=== PATIENT | female | born 1985 | race African-American/Black ===

== ENCOUNTER 2022-11-24 13:59 | Outpatient (CLI) | payer BC, SELFPAY ==
--- NOTE | ~2022-11-24 | US_ITS ---
US OB <=14 wk fetus w TV DATE: 11/24/2022 15:51 INDICATION: First trimester vaginal spotting TECHNIQUE: Real-time imaging and Doppler analysis COMPARISON: None FINDINGS: The uterus measures 8.2 cm height, 5.1 cm AP dimension. Intrauterine normally shaped gestational sac is identified. No subchorionic hematoma is noted. pole and yolk sac are observed. heart rate of 161 bpm. Archer-rump length averages 1.07 cm consistent with estimated gestational age of 7 weeks 1 day +/- 5 d ays with DARINEL of 07/12/2023, compared to 07/11/2023 by LMP. Right ovary 3.3 x 2.3 x 2.0 cm, with normal vascular flow. Left ovary 3.6 x 1.6 x 1.6 cm, with normal vascular flow. No pelvic mass lesion or abnormal free pelvic fluid collection is detected. IMPRESSION: Estimated gestational age of 7 weeks 1 day +/- 5 days with DARINEL of 07/12/2023; no abnormalit y identified Reviewed, dictated and finalized at [facility]. Reviewed, dictated and finalized at location B. E CARRIAGE OPERATOR IMPRESSION: Estimated gestational age of 7 weeks 1 day +/- 5 days with DARINEL of ; no abnormality identified
== END 2022-11-24 14:00 | disposition home or self-care (01) ==
PROVIDERS: Visit Provider Obstetrics & Gynecology Gynecology
DX: O26.851 Spotting complicating pregnancy, first trimester (principal); Z3A.01 Less than 8 weeks gestation of pregnancy
CPT/HCPCS: 36415; 76801; 76817; 84702; 85461; 86850; 86900; 86901

== ENCOUNTER 2022-11-26 08:08 | Outpatient (RCR) | payer BC, SELFPAY | END 2023-02-24 23:59 | disposition home or self-care (01) | LOC: ANHLAB 08:08 | PROVIDERS: Visit Provider Obstetrics & Gynecology Gynecology | DX: O26.859 Spotting complicating pregnancy, unspecified trimester (principal); Z3A.00 Weeks of gestation of pregnancy not specified | CPT/HCPCS: 36415; 84702; 85461; 86850; 86900; 86901 ==

== ENCOUNTER 2022-12-13 08:16 | Emergency (ER) | payer BC, SELFPAY ==
--- NOTE | ~2022-12-13 | US_ITS ---
EXAMINATION: US OB <= 14 weeks fetus DATE: 12/13/2022 09:09 INDICATION: Threatened and vaginal bleeding during first trimester TECHNIQUE: Real-time pelvic transabdominal and transvaginal ultrasound was performed. COMPARISON: 11/24/2022 FINDINGS: The uterus measures 11.8 x 6.3 x 6.4 cm. The previously identified intrauterine is no longer present. The right ovary is not visualized however no right adnexal abnormality is seen. The left ovary measures 2.5 x 2.6 x 1.9 cm. There is normal vascular flow in the left ovary. There i s no free fluid in the pelvis. IMPRESSION: 1. Interval loss of previously described . Reviewed, dictated and finalized at location A. ING MACHINE ADJUSTER
[2022-12-13 08:29] VITALS: BP 103/69; PULSE 87; RESP 17; TEMP 36.7; O2SAT 100
--- NOTE | 2022-12-13 08:42 | ED.PREGNANCY ---
HPI - General Chief complaint: Vaginal Bleeding Stated complaint: 10 weeks /vb Time Seen by Provider: 12/13/22 08:21 History of Present Illness HPI Narrative: 37-year-old female who is around 10 weeks presents with large amount of vaginal bleeding as started about an hour prior to presentation here, the bleeding was preceded with cramping pain. Related Data Allergies Allergy/AdvReac Type Severity Reaction Status Date / Time Sulfa (Sulfonamide Allergy Unknown Verified 12/13/22 08:45 Antibiotics) Review of Systems Review of Systems: CONST: No fever. HEENT: No sore throat C/V: No chest pain RESP: No cough GI: Reports abdominal cramping : Vaginal bleeding M/S: No joint pain. SKIN: No rash. NEURO: [No headache or focal numbness or weakness] PSYCH: [No depression] [facility] Past Medical History Medical History (Updated 12/13/22 @ 14:03 by Regla Lopez MD) No significant active problems Exam Narrative: EXAMINATION OF ORGAN SYSTEMS/BODY AREAS: Constitutional: Vital signs per nursing GENERAL: Appears uncomfortable in bed HEAD: Normal with no signs of head trauma. EYES: EOMI, conjunctiva normal ENT: Hearing grossly intact LUNGS: Nonlabored breathing. HEART: [Regular rate and rhythm] ABD: [Soft], [minimally tender to lower abdomen] : Minimal active bleeding with some blood in vaginal vault; os open, no significant tenderness EXT: Normal range of motion SKIN: [No rashes or lesions.] NEURO: [Alert and oriented x 3. No gross focal sensory or strength deficits.] PSYCH: Normal affect Course Vital Signs Vital signs: Vital Signs Temperature 98.0 F 12/13/22 08:29 Pulse Rate 87 12/13/22 08:29 Respiratory Rate 17 12/13/22 08:29 Blood Pressure 103/69 12/13/22 08:29 Pulse Oximetry 100 12/13/22 08:29 Oxygen Delivery Room Air 12/13/22 08:29 Temperature 98.0 F 12/13/22 08:29 Pulse Rate 88 12/13/22 10:32 Respiratory Rate 18 12/13/22 10:32 Blood Pressure 102/71 12/13/22 10:32 Pulse Oximetry 99 12/13/22 10:32 Oxygen Delivery Room Air 12/13/22 08:29 MDM - OB/Uterine Contractions MDM Narrative Medical decision making narrative: 37-year-old female presenting with vaginal bleeding, she is 10 weeks , I did review the EMR and noted there is confirmed IUP by ultrasound, she is Rh+. When I first went to examine her, she was actively passing clots in the toilet. I will obtain labs and transvaginal ultrasound. Ultrasound unfortunately confirms completed miscarriage, I did discuss this with the patient and her . On reevaluation, patient still having some cramping pain, she is given Tylenol with some improvement. I did perform a pelvic exam at this time and there is now minimal bleeding. I have discussed the case with the CD MIXER on-call, she does have a low hemoglobin at 9.6 however I do not have a baseline, discussed this with him and he recommended starting iron pills, with ibuprofen given as needed for pain, and follow-up to her CD MIXER on Thursday. Strict return precautions provided to the patient. She is agreeable to this plan. Lab Data 12/13/22 08:38 12/13/22 08:38 Labs: Lab Results 12/13/22 12/13/22 12/13/22 Range/Units 08:38 08:38 08:38 WBC 9.4 (4.5-10.0) K/mm3 RBC 3.38 L (4.2-5.4) M/mm3 Hgb 9.6 L (12.0-15.0) g/dL Hct 28.7 L (37.0-47.0) % MCV 84.9 (80-100) fl MCH 28.4 (26-34) pg MCHC 33.4 (32-36) g/dl RDW 14.0 (11.5-14.5) % Plt Count 335 (150-375) k/mm3 MPV 9.2 (7.4-10.4) fl Immature Gran % (Auto) 0.3 (0-0.5) % Neut % (Auto) 79.7 H (45.5-73.1) % Lymph % (Auto) 14.5 L (18.3-44.2) % Harmon % (Auto) 5.2 (2.6-8.5) % Eos % (Auto) 0.1 (0-4.4) % Baso % (Auto) 0.2 (0.2-1.2) % Lymph # (Auto) 1.36 (0.9-3.2) K/mm3 Harmon # (Auto) 0.5 (0.1-0.6) K/mm3 Eos # (Auto) 0.0 (0-0.3) K/mm3 Baso # (Auto) 0.0 (0.0-0.1)
[2022-12-13 08:45] LABS: Basophils Percent Auto 0.2 % (0.2-1.2); Eosinophils Percent Auto 0.1 % (0-4.4); Hematocrit 28.7 % (37.0-47.0); Hemoglobin 9.6 g/dL (12.0-15.0); Immature Granulocyte Absolute 0.03 K/mm3 (0.00-0.031); Immature Granulocyte Percent A 0.3 % (0-0.5); Lymphocytes Absolute Auto 1.36 K/mm3 (0.9-3.2); Lymphocytes Percent Auto 14.5 % (18.3-44.2); Mean Corpuscular HGB Conc 33.4 g/dl (32-36); Mean Corpuscular Hemoglobin 28.4 pg (26-34); Mean Corpuscular Volume 84.9 fl (80-100); Mean Platelet Volume 9.2 fl (7.4-10.4); Monocytes Absolute Auto 0.5 K/mm3 (0.1-0.6); Monocytes Percent Auto 5.2 % (2.6-8.5); Neutrophils Absolute Auto 7.5 K/mm3 (1.3-6.7); Neutrophils Percent Auto 79.7 % (45.5-73.1); Platelet Count Result 335 k/mm3 (150-375); Red Blood Count 3.38 M/mm3 (4.2-5.4); White Blood Count 9.4 K/mm3 (4.5-10.0)
--- NOTE | 2022-12-13 08:53 | PC.NURSE ---
Pt declined the medications ordered at this time. Informed to let RN know if she changes her mind.
[2022-12-13 08:54] LABS: Anion Gap 7 mmol/L (8-16); Blood Urea Nitrogen 5 mg/dL (7-17); Calcium 8.8 mg/dL (8.4-10.2); Carbon Dioxide 25 mmol/L (22-30); Chloride 99 mmol/L (98-107); Estimated CRCL calculation 88 ml/min; Estimated Glomerular Filt Rate > 60; Glucose 99 mg/dL (65-110); Potassium 3.9 mmol/L (3.4-5.0); Sodium 131 mmol/L (137-145)
[2022-12-13 10:32] VITALS: BP 102/71; PULSE 88; RESP 18; O2SAT 99
== END 2022-12-13 10:34 | disposition home or self-care (01) ==
PROVIDERS: Emergency Provider Emergency Medicine
DX: O03.9 Complete or unspecified spontaneous abortion without complication (principal)
CPT/HCPCS: 36415; 76801; 80048; 84702; 85025; 96365; 99284; J0131

== ENCOUNTER 2023-10-02 13:01 | Emergency (ER) | payer BC, SELFPAY ==
--- NOTE | ~2023-10-02 | US_ITS ---
US OB <=14 wk fetus w TV DATE: 10/02/2023 16:44 INDICATION: Vaginal bleeding and cramping; history of 8 week gestation TECHNIQUE: Real-time imaging via transabdominal and transvaginal approaches COMPARISON: None FINDINGS: The uterus measures approximately 6 x 8 cm height, 4 cm AP and 6.7 cm transverse dimension. Prominent endometrial thickness, measuring up to approximately 2 cm. No intrauterine gestational sac is identified. Left ovary measures 2.8 x 0 0.9 to 2.4 cm, normal in appearance. The right ovary measures 3.8 x 1.9 x 2.9 cm with suggestion of an approximately 11 x 18 mm corpus lut eum cyst. No pelvic mass lesion or abnormal free pelvic fluid collection is noted. IMPRESSION: Prominent central endometrial echocardiogram, measuring up to 2 cm AP dimension; no intra uterine gestational sac or free pelvic fluid collection is noted Reviewed, dictated and finalized at [facility]. Reviewed, dictated and finalized at location A. RUG BRAIDER IMPRESSION: Prominent central endometrial echocardiogram, measuring up to 2 cm AP dimension; no intrauterine gestational sac or free pelvic fluid collection i s noted
[2023-10-02 13:12] VITALS: BP 131/86; PULSE 85; RESP 18; TEMP 36.8; O2SAT 100
[2023-10-02 13:28] LABS: Basophils Percent Auto 0.4 % (0.2-1.2); Eosinophils Absolute Auto 0.1 K/mm3 (0-0.3); Hematocrit 30.7 % (37.0-47.0); Immature Granulocyte Absolute 0.01 K/mm3 (0.00-0.031); Immature Granulocyte Percent A 0.2 % (0-0.5); Lymphocytes Absolute Auto 1.59 K/mm3 (0.9-3.2); Lymphocytes Percent Auto 32.4 % (18.3-44.2); Mean Corpuscular HGB Conc 32.6 g/dl (32-36); Mean Corpuscular Hemoglobin 27.8 pg (26-34); Mean Corpuscular Volume 85.3 fl (80-100); Mean Platelet Volume 9.2 fl (7.4-10.4); Monocytes Absolute Auto 0.4 K/mm3 (0.1-0.6); Monocytes Percent Auto 7.5 % (2.6-8.5); Neutrophils Absolute Auto 2.9 K/mm3 (1.3-6.7); Neutrophils Percent Auto 58.5 % (45.5-73.1); Platelet Count Result 361 k/mm3 (150-375); Red Cell Distribution Width 14.5 % (11.5-14.5); White Blood Count 4.9 K/mm3 (4.5-10.0)
[2023-10-02 13:37] LABS: Alanine Aminotransferase 15 U/L (6-35); Albumin Level 4.4 g/dL (3.5-5.1); Alkaline Phosphatase 63 U/L (38-126); Anion Gap 8 mmol/L (8-16); Aspartate Amino Transferase 23 U/L (14-36); Bilirubin,Total 0.3 mg/dL (0.2-1.3); Blood Urea Nitrogen 4 mg/dL (7-17); Calcium 9.5 mg/dL (8.4-10.2); Carbon Dioxide 26 mmol/L (22-30); Chloride 103 mmol/L (98-107); Estimated Glomerular Filt Rate > 60; Glucose 102 mg/dL (65-110); Potassium 3.9 mmol/L (3.4-5.0); Sodium 137 mmol/L (137-145)
[2023-10-02 14:42] LABS: Appearance Urine Cloudy (Clear); Bacteria Urine Rare /hpf; Bilirubin Urine Negative (Negative); Blood Urine 1+ (Negative); Color Urine Yellow (Yellow); Glucose Urine UA Negative (Negative); Ketones Urine Negative (Negative); Leukocyte Esterase Ur 1+ LEU/UL (Negative); Nitrate Urine Negative (Negative); Non Pathogenic Casts 0-2; Protein Urine Negative (Negative); RBC Urine 0-2 /hpf (0-2); Specific Grav Ur 1.013 (1.001-1.035); Squamous Epithelial Cell Urine Moderate /hpf (Few); Urobilinogen Urine 0.2 mg/dL (<2.0); pH Urine 7.5 (5.0-9.0)
[2023-10-02 14:48] LABS: Add Urine Microscopic? YES
--- NOTE | 2023-10-02 15:20 | ED.FEMALEGU ---
HPI - Female Genitourinary General Chief complaint: Vaginal Bleeding Stated complaint: +preg-spotting Time Seen by Provider: 10/02/23 14:21 History of Present Illness HPI Narrative: Patient is a 38-year-old female presenting with vaginal spotting. States that she had a positive test several weeks ago. LMP July 28. States that she started spotting yesterday and has had mild intermittent cramps. States that she had a miscarriage sometime last year. No further complaints. Related Data Home Medications Medication Instructions Recorded Confirmed acyclovir 400 mg tablet 400 mg PO DAILY 10/08/23 escitalopram oxalate 20 mg tablet 20 mg PO DAILY 10/08/23 labetalol 200 mg tablet 200 mg PO Q12H 10/08/23 Allergies Allergy/AdvReac Type Severity Reaction Status Date / Time Sulfa (Sulfonamide Allergy Unknown Verified 10/08/23 12:27 Antibiotics) Review of Systems Review of Systems: All systems reviewed & are unremarkable except as noted in HPI and below PMFSH Past Medical History Medical History (Updated 10/09/23 @ 14:51 by Antonino Vu MD) Anxiety HSV (herpes simplex virus) infection HTN (hypertension) No significant active problems Social History Social History (Updated 10/08/23 @ 12:39 by Bebo Fisher CMA) Smoking status: Never smoker Alcohol intake: former Substance use: never Lack of Transportation: No Lack of Food: Never True Current Housing: I Have Housing Concerned About Future Housing: No Difficulty Paying Gas/Electric Bills: No Difficulty Paying for Meds: No Currently Unemployed: No Occupation/Education: occupation Gender identity (if verbalized by the patient): Female Sexual Orientation (if Verbalized by the Patient): Straight or Heterosexual Exam Narrative: GENERAL: Well-appearing, In no acute distress, pleasant and cooperative HEAD: Normocephalic, atraumatic. EYES: PERRLA and EOMI. ENT: grossly unremarkable NECK: Supple. CHEST: No respiratory distress. HEART: Regular rate and rhythm ABDOMEN: Soft, nontender, nondistended EXTREMITIES: Normal range of motion. SKIN: Warm, dry, no rash. NEURO: Alert and oriented x3. PSYCH: Normal mood and affect. Course Vital Signs Vital signs: Vital Signs Temperature 98.3 F 10/02/23 13:12 Pulse Rate 85 10/02/23 13:12 Respiratory Rate 18 10/02/23 13:12 Blood Pressure 131/86 10/02/23 13:12 Pulse Oximetry 100 10/02/23 13:12 Oxygen Delivery Room Air 10/02/23 13:12 Temperature 98.3 F 10/02/23 13:12 Pulse Rate 85 10/02/23 13:12 Respiratory Rate 18 10/02/23 13:12 Blood Pressure 131/86 10/02/23 13:12 Pulse Oximetry 100 10/02/23 13:12 Oxygen Delivery Room Air 10/02/23 13:12 MDM - Female Genitourinary MDM Narrative Medical decision making narrative: 38-year-old female presenting with vaginal spotting in early . Vitals are stable. Exam remarkable for the above. Blood work unremarkable. Stable hemoglobin from prior levels. Beta hCG is only minimally elevated at 1100. After talking with the patient again, she states that actually she thinks that she maybe did have a period last month. This would put her at a gestational age of approximately 4 weeks. Ultrasound shows prominent endometrium but no obvious intrauterine gestation. There is no free fluid. With such a minimally elevated beta-hCG, am concerned that the is too early to see a yolk sac or pole. Patient states that she is seeing a new OB Gyne within our system. States that she spoke with them earlier today. Advised that she follow up with them within 2 days for repeat blood work to evaluate beta-hCG trends. Very strict return precautions were given. Patient voiced understanding and is agreeable with plan. Discharged in stable condition. Differential Diagnosis Differential diagnosis: Likely dysmenorrhea and other ( Early , miscarriage) Medical Re
== END 2023-10-02 17:28 | disposition home or self-care (01) ==
PROVIDERS: Emergency Medicine; Emergency Provider Emergency Medicine
DX: O20.9 Hemorrhage in early pregnancy, unspecified (principal); Z3A.01 Less than 8 weeks gestation of pregnancy
CPT/HCPCS: 36415; 76801; 76817; 80053; 81001; 81025; 84702; 85025; 85461; 86850; 86900; 86901; 87086; 87088; 99284

== ENCOUNTER 2023-10-07 17:37 | Outpatient (CLI) | payer BC, SELFPAY | END 2023-10-07 17:38 | disposition home or self-care (01) | LOC: ANHLAB 17:39 | PROVIDERS: Visit Provider Obstetrics & Gynecology | DX: O26.859 Spotting complicating pregnancy, unspecified trimester (principal); Z3A.00 Weeks of gestation of pregnancy not specified | CPT/HCPCS: 36415; 84702 ==

== ENCOUNTER 2023-10-08 13:34 | Outpatient (CLI) | payer BC, SELFPAY ==
--- NOTE | ~2023-10-08 | US_ITS ---
EXAMINATION: US OB <=14 wk fetus w TV DATE: 10/08/2023 14:46 INDICATION: with inconclusive viability. TECHNIQUE: Real-time transabdominal and transvaginal pelvic ultrasound was performed. COMPARISON: Ultrasound 10/02/2023 FINDINGS: TRANSABDOMINAL ULTRASOUND: The uterus measures 7.6 x 4.3 x 5.2 cm. TRANSVAGINAL ULTRASOUND: There is a cyst in the endometrial complex with mean diameter of 5 mm. If th is finding is a gestational sac, it correlates with an estimated gestational age of 5 weeks and 1 day . Normal yolk sac or pole is identified. The right ovary measures 3.4 x 2.0 x 3.2 cm. The left ovary measures 4.0 x 1.0 x 1.0 cm. There is no free fluid in the pelvis. IMPRESSION: 1. Small cyst in the endometrial complex that may be a gestational sac with estimated date of delive ry of 05/29/2024. Spontaneous and ectopic are not excluded. Serial beta-hCGs are re commended. Reviewed, dictated and finalized at location A. RVISOR METAL FURNITURE FABRICATION IMPRESSION: 1. Small cyst in the endometrial complex that may be a gestational sac with es timated date of delivery of 05/29/2024. Spontaneous and ectopic pregnan cy are not excluded. Serial beta-hCGs are recommended.
== END 2023-10-08 13:35 | disposition home or self-care (01) ==
PROVIDERS: Visit Provider Obstetrics & Gynecology
DX: O36.80X0 Pregnancy with inconclusive fetal viability, not applicable or unspecified (principal); Z3A.00 Weeks of gestation of pregnancy not specified
CPT/HCPCS: 76801; 76817

== ENCOUNTER 2023-10-09 13:49 | Outpatient (CLI) | payer BC, SELFPAY ==
[2023-10-13 21:50] LABS: Progesterone 11.5 ng/mL (***)
== END 2023-10-09 13:50 | disposition home or self-care (01) ==
LOC: ANHLAB 13:50
PROVIDERS: Visit Provider Obstetrics & Gynecology
DX: O20.9 Hemorrhage in early pregnancy, unspecified (principal); Z3A.00 Weeks of gestation of pregnancy not specified
CPT/HCPCS: 36415; 84144; 84702

== ENCOUNTER 2023-10-15 09:30 | Outpatient (CLI) | payer BC, SELFPAY ==
--- NOTE | ~2023-10-15 | US_ITS ---
EXAMINATION: US OB <=14 wk fetus w TV DATE: 10/15/2023 10:21 INDICATION: Hemorrhage in early , unspecified. TECHNIQUE: Real-time transabdominal and transvaginal pelvic ultrasound was performed. COMPARISON: Ultrasound 10/08/2023 FINDINGS: TRANSABDOMINAL ULTRASOUND: The uterus measures 7.5 x 4.5 x 5.1 cm. TRANSVAGINAL ULTRASOUND: There is an intrauterine gestational sac. A yolk sac is identified. The fet al crown rump length measures 3 mm, which correlates with an estimated gestational age of 5 weeks and 6 day(s) (+/-) and 4 day(s). heart motion is not definitively identified, which is normal at t his size. The right ovary measures 4.1 x 2.3 x 2.1 cm. The left ovary measures 3.4 x 0.9 x 3.0 cm. Th ere is no free fluid in the pelvis. IMPRESSION: 1. Single intrauterine gestation with estimated date of delivery of 06/10/24. Reviewed, dictated and finalized at location E. L BEARING DRILLER
== END 2023-10-15 09:31 ==
PROVIDERS: Visit Provider Obstetrics & Gynecology
DX: O36.80X0 Pregnancy with inconclusive fetal viability, not applicable or unspecified (principal); Z3A.00 Weeks of gestation of pregnancy not specified
CPT/HCPCS: 76801; 76817

== ENCOUNTER 2023-11-03 15:54 | Outpatient (CLI) | payer BC, SELFPAY ==
[2023-11-03 16:37] LABS: Hematocrit 30.9 % (37.0-47.0); Hemoglobin 9.9 g/dL (12.0-15.0); Mean Corpuscular Hemoglobin 27.7 pg (26-34); Mean Corpuscular Volume 86.3 fl (80-100); Mean Platelet Volume 9.6 fl (7.4-10.4); Platelet Count Result 425 k/mm3 (150-375); Red Blood Count 3.58 M/mm3 (4.2-5.4); Red Cell Distribution Width 14.7 % (11.5-14.5); White Blood Count 6.8 K/mm3 (4.5-10.0)
[2023-11-03 16:51] LABS: Appearance Urine Clear (Clear); Bilirubin Urine Negative (Negative); Blood Urine Negative (Negative); Color Urine Yellow (Yellow); Glucose Urine UA Negative (Negative); Ketones Urine Negative (Negative); Leukocyte Esterase Ur Negative LEU/UL (NEGATIVE); Nitrate Urine Negative (Negative); Protein Urine Negative (Negative); Specific Grav Ur 1.004 (1.001-1.035); Urobilinogen Urine 0.2 mg/dL (<2.0); pH Urine 6.5 (5.0-9.0)
[2023-11-03 16:56] LABS: Add Urine Microscopic? NO
[2023-11-03 17:19] LABS: Thyroid Stimulating Hormone 0.809 uIU/mL (0.465-4.680)
[2023-11-03 17:28] LABS: HIV 1/2 Ab P24 Ag Result Negative (Negative)
[2023-11-03 18:03] LABS: Hepatitis B Surface Antigen Negative (Negative)
[2023-11-03 19:26] LABS: Hepatitis C Virus Antibody Negative (Negative)
[2023-11-04 14:03] LABS: Rapid Plasma Reagin Non-Reactive (NonReactive)
[2023-11-07 02:43] LABS: Hemoglobin 10.3 g/dL (11.7-15.5); MCH 28.1 pg (27.0-33.0); MCV 87.4 fL (80.0-100.0); RDW 15.7 % (11.0-15.0); Red Blood Cell Count 3.66 Mill/uL (3.80-5.10)
== END 2023-11-03 15:55 | disposition home or self-care (01) ==
LOC: ANHLAB 15:56
PROVIDERS: Visit Provider Registered Nurse
DX: Z34.90 Encounter for supervision of normal pregnancy, unspecified, unspecified trimester (principal); Z3A.00 Weeks of gestation of pregnancy not specified
CPT/HCPCS: 36415; 81003; 81243; 83021; 84443; 85027; 86592; 86703; 86762; 86787; 86803; 86850; 86900; 86901; 87086; 87088; 87340; G0432

== ENCOUNTER 2023-11-05 16:47 | Outpatient (CLI) | payer BC, SELFPAY | END 2023-11-05 16:48 | disposition home or self-care (01) | LOC: ANHLAB 16:48 | PROVIDERS: Visit Provider Registered Nurse | DX: O46.90 Antepartum hemorrhage, unspecified, unspecified trimester (principal); Z3A.00 Weeks of gestation of pregnancy not specified | CPT/HCPCS: 36415; 84702 ==

== ENCOUNTER 2023-12-10 17:05 | Outpatient (CLI) | payer BC, SELFPAY ==
[2023-12-10 18:22] LABS: Beta HCG Quantitative < 2.39 mIU/ML
[2023-12-24 13:49] LABS: CF Result NEGATIVE (NEGATIVE); Ethnicity NG
== END 2023-12-10 17:06 | disposition home or self-care (01) ==
LOC: ANHLAB 17:06
PROVIDERS: Visit Provider Registered Nurse
DX: O20.9 Hemorrhage in early pregnancy, unspecified (principal); Z3A.00 Weeks of gestation of pregnancy not specified
CPT/HCPCS: 36415; 81220; 84702

== ENCOUNTER 2024-07-02 10:35 | Outpatient (CLI) | payer BC, SELFPAY ==
[2024-07-02 11:04] LABS: Alanine Aminotransferase 16 U/L (6-35); Albumin Level 4.4 g/dL (3.5-5.1); Alkaline Phosphatase 69 U/L (38-126); Anion Gap 10 mmol/L (4-12); Aspartate Amino Transferase 22 U/L (14-36); Bilirubin,Total 0.1 mg/dL (0.2-1.3); Blood Urea Nitrogen 6 mg/dL (7-17); Calcium 8.8 mg/dL (8.4-10.2); Carbon Dioxide 28 mmol/L (22-30); Chloride 102 mmol/L (98-107); Estimated Glomerular Filt Rate > 60; Glucose 130 mg/dL (65-110); Potassium 3.9 mmol/L (3.4-5.0); Sodium 140 mmol/L (137-145)
[2024-07-02 11:34] LABS: Thyroid Stimulating Hormone 0.963 uIU/mL (0.465-4.680)
[2024-07-02 11:36] LABS: Free T4 Free Thyroxine 0.93 ng/mL (0.78-2.19)
[2024-07-02 12:44] LABS: Hemoglobin A1C 5.9 % (<5.7)
[2024-07-04 16:29] LABS: FSH 3.3 mIU/mL; LH 4.3 mIU/mL
[2024-07-05 12:09] LABS: Insulin Level Total 90.6 uIU/mL
[2024-07-08 19:14] LABS: Estrogen 95 pg/mL
[2024-07-09 23:04] LABS: Anti Mullerian Hormone,Female 1.83 ng/mL (0.18-5.68)
== END 2024-07-02 10:36 | disposition home or self-care (01) ==
LOC: ANHLAB 10:37
PROVIDERS: Visit Provider Obstetrics & Gynecology
DX: N97.9 Female infertility, unspecified (principal)
CPT/HCPCS: 36415; 80053; 82672; 83001; 83002; 83036; 83525; 84439; 84443

== ENCOUNTER 2024-10-29 12:28 | Outpatient (CLI) | payer BC, SELFPAY ==
[2024-10-29 12:41] LABS: Hematocrit 31.6 % (37.0-47.0); Hemoglobin 10.8 g/dL (12.0-15.0); Mean Corpuscular HGB Conc 34.2 g/dl (32-36); Mean Corpuscular Volume 84.9 fl (80-100); Mean Platelet Volume 9.2 fl (7.4-10.4); Platelet Count Result 342 k/mm3 (150-375); Red Blood Count 3.72 M/mm3 (4.2-5.4); White Blood Count 5.2 K/mm3 (4.5-10.0)
[2024-10-31 14:38] LABS: Insulin Level Total 9.2 uIU/mL
[2024-11-01 05:43] LABS: Progesterone 43.7 ng/mL
--- OUTSIDE RECORDS SUMMARY | 2024-11-05 18:38 | XMS_ITS | Referral Summary ---
Author Organization [facility] [employer] Address [address] [place] [address] Care Team Providers Care Flamer Sealer Name Role Phone Jan Doherty MD Primary Care Provider [phone] Source Comments [facility],non-owned Affiliates and Associated Physician Practices is amultiple site organization consisting of ambulatory clinics and hospital sitesin [place], [place], [place] and [place]. This disclosure is being madepursuant to the Care Everywhere program and may not contain all information available regarding this patient. Last updated 18.[facility] Allergies Active Allergy Reactions Criticality Noted Date Comments Sulfa Drugs 06/09/2009 Medications * Be aware that medications may not be up to date on this document. Always verify current medications with the patient. Medication Sig Dispensed Refills Start Date End Date Status ciprofloxacin (CIPRO) 500 MG tablet Take 1 Tab by mouth 2 times daily. 14 Tab 0 11/30/2014 Active acyclovir (ZOVIRAX) 200 MG capsuleIndications:H SV (herpes simplex virus) infection Take 1 Cap by mouth 2 times daily 180 Cap 3 05/30/2015 Active amphetamine-dextroam phetamine (ADDERALL) 10 MG tabletIndications:AD D (attention deficit disorder) 1 EVERY EVENING; PA APPROVED 01/13/15-02/12/16 Earliest Fill Date: 06/01/15 30 Tab 0 06/01/2015 Active lisdexamfetamine (VYVANSE) 50 MG capsuleIndications:A DD (attention deficit disorder) 1 Cap every morning 30 Cap 0 06/01/2015 Active cyclobenzaprine (Flexeril) 5 MG tablet Take 1 (one) tablet by mouth 3 times daily as needed (Muscle spasms) 15 tablet 06/15/2022 Active naproxen (Naprosyn) 500 MG tablet Take 1 (one) tablet by mouth 2 times daily 30 tablet 06/15/2022 Active Active Problems Problem Noted Date Diagnosed Date HSV (herpes simplex virus) infection 05/11/2014 Cervical cancer screening 06/08/2009 Overview (06/08/2009): JUN 2004 ADD (attention deficit disorder) 06/08/2009 Immunizations Name Administration Dates Next Due TDAP (7yrs+) 06/15/2022(Deferred: Patient Ref used),05/11/2014 Social History Tobacco Use Types Packs/Day Years Used Date Smoking Tobacco: Never Alcohol Use Standard Drinks/Week Comments Yes 0 (1 standard drink = 0.6 oz pur e alcohol) occ AUDIT-C Answer Date Recorded Q1: How often do you have a drink containing alc ohol? Monthly or less 06/15/2022 Q2: How many drinks containi ng alcohol do you have on a typical day when you are drinking? 1 or 2 06/15/2022 Q3: How often do you have si x or more drinks on one occasion? Less than monthly 06/15/2022 Sex and Gender Information Value Date Recorded Sex Assigned at Not on file Gender Identity Not on file Sexual Orientation Not on file Last Filed Vital Signs Vital Sign Reading Time Taken Comments Blood Pressure 176/115 06/15/2022 2:30 AM CDT Pulse 112 06/15/2022 12:28 AM CDT Temperature 36.3 ??C (97.4 ??F) 06/15/2022 12:28 AM C DT Respiratory Rate 19 06/15/2022 12:28 AM CDT Oxygen Saturation 99% 06/15/2022 2:30 AM CDT Inhaled Oxygen Concentration - - Weight 65.8 kg (145 lb) 06/15/2022 12:28 AM CDT Height 157.5 cm (5' 2 ) 06/15/2022 12:28 AM CDT Body Mass Index 26.52 06/15/2022 12:28 AM CDT Plan of Treatment Not on file Procedures Procedure Name Priority Date/Time Associated Diagnosis Comments PAP SMEAR REPORT ORDER 09/17/2022 from Last 3 Months or Most Recently Relevant to Health Maintenance Results * PAP SMEAR REPORT ORDER (09/17/2022) 09/17/2022 Narrative 09/17/2022 Ordered by an unspecified provider. Scanned Document LAB - PATHOLOGY/CYTO LOGY ORDERABLES from Last 3 Months or Most Recently Relevant to Health Maintenance Care Teams Flamer Sealer Relationship Specialty Start Date End Date Jan Doherty MD [address] [id number] PCP - General 06/08/09
--- OUTSIDE RECORDS SUMMARY | 2024-11-05 18:38 | XMS_ITS | Patient Health Summary ---
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 CDT IMPRESSION: Head: 1.No acute intracranial abnormality. Cervical, thoracic and lumbar spine: 1.No fracture of the cervical, thoracic and lumbar spine. 2.Please refer to the separately dictated report of CT scan of the chest, abdomen and pelvis for intrathoracic and intra-abdominal findings. Report dictated by Morales Finch MD (outside residential sales professional) Kala Mitchell Dr have personally reviewed and interpreted this examination/study. > Interpreting Provider: Kala Jimenez Dr on 06/15/2022 11:09 AM Narrative 06/15/2022 11:09 AM CDT PROCEDURE: ??CT HEAD WO CONTRAST, CT LUMBAR SPINE WO CONTRAST, CT THORACIC SPINE WO CONTRAST, CT CERVICAL SPINE WO CONTRAST, DATE/TIME OF EXAM: 06/15/2022 1:37 AM, LOCATION ??[facility] INDICATION: Trauma TECHNIQUE: CT of the head and cervical spine was performed without intravenous contrast according to standard protocol. CT images of the thoracic spine and lumbar spine were reformatted from the concurrently obtained contrast enhanced CT scan of the chest, abdomen and pelvis. COMPARISON: Comparison is made with an outside institution FINDINGS: Brain: There is no acute hemorrhage. There is no hydrocephalus, midline shift or extra-axial fluid collection. There is no significant parenchymal abnormality. There is no acute calvarial fracture. There is a right frontal scalp hematoma. Cervical spine: There is no fracture or traumatic subluxation. The prevertebral soft tissues are within normal limits. The spinal curvature is maintained. There are no aggressive appearing lytic or sclerotic bone lesions. No significant degenerative changes are seen. There is no spinal canal or foraminal stenosis. Thoracic spine: There is no fracture or traumatic subluxation. The prevertebral soft tissues are within normal limits. The spinal curvature is maintained. There are no aggressive appearing lytic or sclerotic lesions. No significant degenerative changes are seen. There is no spinal canal or foraminal stenosis. Lumbar spine: There is no fracture or traumatic subluxation. The prevertebral soft tissues are within normal limits. 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 Transitional anatomy with 6 lumbar vertebra. The spinal curvature is maintained. There are no aggressive appearing lytic or sclerotic lesions. No significant degenerative changes are seen. There is no spinal canal or foraminal stenosis. Procedure Note Kala Jimenez MD - 06/15/2022 PROCEDURE: CT HEAD WO CONTRAST, CT LUMBAR SPINE WO CONTRAST, CTTHORACIC SPINE WO CONTRAST, CT CERVICAL SPINE WO CONTRAST, DATE/TIME OF EXAM: 06/15/2022 1:37 AM, LOCATION [facility] INDICATION: Trauma TECHNIQUE: CT of the head and cervical spine was performed without intravenous contrast according to standard protocol. CT images of the thoracic spine and lumbar spine were reformatted from the concurrently obtained contrast enhanced CT scan of the chest, abdomen and pelvis. COMPARISON: Comparison is made with an outside institution FINDINGS: Brain: There is no acute hemorrhage. There is no hydrocephalus, midline shiftor extra-axial fluid collection. There is no significant parenchymal abnormality. There is no acute calvarial fracture. There is a right frontal scalp hematoma. Cervical spine: There is no fracture or traumatic subluxation. The prevertebral soft tissues are within normal limits. The spinal curvature is maintained. There are no aggressive appearinglytic or sclerotic bone lesions. No significant degenerative changes are seen. There is no spinal canal or foraminal stenosis. Thoracic spine: There is no fracture or traumatic subluxation. The prevertebral soft tissues are within normal limits. The spinal curvature is maintained. There are no aggressive appearinglytic or sclerotic lesions. No significant degenerative changes are seen.There is no spinal canal or foraminal stenosis. Lumbar spine: There is no fracture or traumatic subluxation. The prevertebral soft tissues are within normal limits. 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 Transitional anatomy with 6 lumbar vertebra. The spinal curvature is maintained. There are no aggressive appearinglytic or sclerotic lesions. No significant degenerative changes are seen.There is no spinal canal or foraminal stenosis. IMPRESSION: Head: 1.No acute intracranial abnormality. Cervical, thoracic and lumbar spine: 1.No fracture of the cervical, thoracic and lumbar spine. 2.Please refer to the separately dictated report of CT scan of thechest, abdomen and pelvis for intrathoracic and intra-abdominal findings. Report dictated by Morales Finch MD (outside residential sales professional) Kala Mitchell Dr have personally reviewed and interpreted this examination/study. > Interpreting Provider: Kala Jimenez Dr on 06/15/2022 11:09 AM Suni Krishnamurthy MD CT ORDERABLES * XR PELVIS 1 OR 2VW (06/15/2022 1:12 AM CDT) Anatomical Region Laterality Modality Pelvis Radiographic Alysia ging 06/15/2022 1:22 AM CDT Impressions 06/15/2022 10:40 AM CDT IMPRESSION: No acute osseous abnormality. Report drafted by Morales Finch MD (outside residential sales professional) Henna Mitchell have personally reviewed and interpreted this examination/study. > Interpreting Provider: Henna Reis on 06/15/2022 10:40 AM Narrative 06/15/2022 10:40 AM CDT EXAMINATION: XR PELVIS 1 OR 2VW HISTORY: Trauma Fracture suspected COMPARISON: None. FINDINGS: No acute fracture is identified. The femoral heads appear well-seated within their respective acetabula. The joint spaces are preserved. The pubic symphysis is intact. The osseous architecture and density are normal. The sacroiliac joints are normal. Procedure Note Henna Reis MD - 06/15/2022 EXAMINATION: XR PELVIS 1 OR 2VW HISTORY: Trauma Fracture suspected COMPARISON: None. FINDINGS: No acute fracture is identified. The femoral heads appear well-seated within their respective acetabula. The joint spaces are preserved. The pubic symphysis is intact. The osseous architecture and density arenormal. The sacroiliac joints are normal. IMPRESSION: No acute osseous abnormality. Report drafted by Morales Finch MD (outside residential sales professional) Henna Mitchell have personally reviewed and interpreted this examination/study. > Interpreting Provider: Henna Reis on 06/15/2022 10:40 AM Suni Krishnamurthy MD DIAGNOSTIC IMAGING O RDERABLES * XR CHEST 1VW PORTABLE (06/15/2022 1:12 AM CDT) Anatomical Region Laterality Modality Chest Radiographic Alysia ging 06/15/2022 1:23 AM CDT Narrative 06/15/2022 10:41 AM CDT EXAMINATION: XR CHEST 1VW PORTABLE HISTORY: Trauma COMPARISON: No prior study is available for comparison. FINDINGS/IMPRESSION: There is no focal consolidation, pleural effusion, or pneumothorax. The cardiomediastinal silhouette is normal. The visible bony thorax is intact. > Dictated by Morales Finch MD (outside residential sales professional). Henna Mitchell have personally reviewed and interpreted this examination/study. > Interpreting Provider: Henna Reis on 06/15/2022 10:41 AM Procedure Note Henna Reis MD - 06/15/2022 EXAMINATION: XR CHEST 1VW PORTABLE HISTORY: Trauma COMPARISON: No prior study is available for comparison. FINDINGS/IMPRESSION: There is no focal consolidation, pleural effusion, or pneumothorax. The cardiomediastinal silhouette is normal. The visible bony thorax isintact. > Dictated by Morales Finch MD (outside residential sales professional). I, Henna Reis have personally reviewed and interpreted this examination/study. > Interpreting Provider: Henna Reis on 06/15/2022 10:41 AM Suni Krishnamurthy MD DIAGNOSTIC IMAGING O RDERABLES * PTT [facility] (06/15/2022 1:12 AM CDT) APTT 27.4 23.0 - 38.4 Seconds 06/15/2022 1:42 AM CDT [facility] Comment:Suggested therapeuti c range for full dose I.V. unfractionated heparin therapy for venous thromboembolism is 71 to 109 seconds. Blood BLOOD SPECIMEN / Unknown Venipuncture / Unknown 06/15/2022 1:12 AM CDT 06/15/2022 1:17 AM CDT Suni Krishnamurthy MD LAB - COAGULATION OR DERABLES Performing Organization Address [facility] Co de Phone Number [facility] [address] [place] [address], [facility] [phone] * PT-INR [facility] (06/15/2022 1:12 AM CDT) PT 12.9 12.1 - 14.8 Seconds 06/15/2022 1:41 AM CDT [facility] INR 1.0 See Comment 06/15/2022 1:41 AM CDT [facility] Comment:The suggested therap eutic range for standard coumadin (warfarin) therapy is an INR of 2.0-3.0. For high-risk patients (Mechanical Mitral Valve Prosthesis, etc.), the suggested prophylactic therapeutic range is an INR of 2.5-3.5. Blood BLOOD SPECIMEN / Unknown Venipuncture / Unknown 06/15/2022 1:12 AM CDT 06/15/2022 1:17 AM CDT Suni Krishnamurthy MD LAB - COAGULATION OR DERABLES Performing Organization Address City/State/[facility] Co de Phone Number [facility] [address] [place] [address], [facility] [phone] * ALCOHOL ETHYL BLOOD (06/15/2022 1:12 AM CDT) Ethanol (mg/dL) <10 <10 mg/dL 1:42 AM CDT [facility] Ethanol Calculated (g/dL) <0.010 <=0.010 g/dL 06/15/2022 1:42 AM CDT [facility] Blood BLOOD SPECIMEN / Unknown Venipuncture / Unknown 06/15/2022 1:12 AM CDT 06/15/2022 1:17 AM CDT Narrative [facility] - 06/15/2022 1:42 AM CDT Ethanol Interp <10: None Detected. Depression of INTERN: >100 mg/dl Potentially Critical: >250 mg/dl Potentially Fatal >400 mg/dl Ethanol in the patient's blood will contribute to the osmolar gap. Ethanol's contribution to the osmolar gap can be estimated by dividing the concentration of ethanol in mg/dL by 4.6. This test is for clinical use only and does not equal a SHAUNA for legal purposes. Suni Krishnamurthy MD LAB - CHEMISTRY PJ VYAS Performing Organization Address [facility] Co de Phone Number [address] [address], [facility] [phone] * (ABNORMAL) CBC W AUTO DIFFERENTIAL (06/15/2022 12:51 AM CDT) Only the most recent of2 resultswithin the time period is included. WBC 6.9 3.5 - 10.5 10? 3 /uL 06/15/2022 1:08 AM CDT [facility] RBC 3.80 3.80 - 5.20 10? 6 /uL 06/15/2022 1:08 AM CDT [facility] Hemoglobin 10.5(L) 12.0 - 15.6 g/dL 06/15/2022 1:08 AM CDT [facility] Hematocrit 31.5(L) 35.0 - 45.0 % 06/15/2022 1:08 AM [facility] MCV 82.9 80.7 - 98.3 fL 06/15/2022 1:08 AM [facility] MCH 27.6 26.7 - 34.0 pg 06/15/2022 1:08 AM [facility] MCHC 33.3 30.8 - 35.9 g/dL 06/15/2022 1:08 AM [facility] Platelet Count 408(H) 150 - 400 10? 3 /uL 06/15/2022 1:08 AM [facility] RDW-SD 43.8 36.0 - 50.0 fL 06/15/2022 1:08 AM [facility] RDW-CV 14.5 11.2 - 14.8 % 06/15/2022 1:08 AM [facility] MPV 9.3(L) 9.4 - 12.9 fL 06/15/2022 1:08 AM [facility] nRBC Absolute 0.00 0 10? 3 /uL 06/15/2022 1:08 AM [facility] nRBC Auto 0.0 0 /100 WBC 06/15/2022 1:08 AM [facility] Neutrophils % 57.6 35.0 - 70.0 % 06/15/2022 1:08 AM [facility] Lymphocytes % 33.5 20.0 - 43.0 % 06/15/2022 1:08 AM [facility] Monocytes % 7.5 5.0 - 13.0 % 06/15/2022 1:08 AM [facility] Eosinophils % 0.9 0.0 - 6.0 % 06/15/2022 1:08 AM [facility] Basophil % 0.4 0.0 - 2.0 % 06/15/2022 1:08 AM [facility] Neutrophils Absolute 3.99 1.60 - 7.00 10? 3 /uL 06/15/2022 1:08 AM [facility] Lymphocyte Absolute 2.32 1.10 - 3.90 10? 3 /uL 06/15/2022 1:08 AM [facility] Monocytes Absolute 0.52 0.26 - 1.07 10? 3 /uL 06/15/2022 1:08 AM [facility] Eosinophils Absolute 0.06 0.00 - 0.47 10? 3 /uL 06/15/2022 1:08 AM [facility] Basophils Absolute 0.03 0.00 - 0.08 10? 3 /uL 06/15/2022 1:08 AM [facility] Immature Granulocytes % 0.1 0.0 - 1.0 % 06/15/2022 1:08 AM [facility] Immature Granulocytes Absolute 0.01 06/15/2022 1:08 AM [facility] Blood BLOOD SPECIMEN / Unknown Venipuncture / Unknown 06/15/2022 12:51 AM CDT 06/15/2022 1:04 AM CDT Betsey Calle TUR[employer] GROWER[employer]CUTTING AND BONING SUPERVISOR LAB - HEMATO LOGY ORDERABLES Performing Organization Address City/State/[facility] Co de Phone Number [address] [address], [facility] [phone] * (ABNORMAL) COMPREHENSIVE METABOLIC PANEL (06/15/2022 12:51 AM CDT) Only the most recent of2 resultswithin the time period is included. BUN 8 7 - 26 mg/dL 06/15/2022 1:32 AM [facility] Creatinine 0.76 0.56 - 0.96 mg/dL 06/15/2022 1:32 AM [facility] Sodium 139 136 - 145 mmol/L 06/15/2022 1:32 AM [facility] Potassium 3.6 3.5 - 4.5 mmol/L 06/15/2022 1:32 AM [facility] Chloride 105 98 - 107 mmol/L 06/15/2022 1:32 AM [facility] CO2 21(L) 22 - 29 mmol/L 06/15/2022 1:32 AM [facility] Glucose 90 70 - 115 mg/dL 06/15/2022 1:32 AM [facility] Calcium 9.0 8.4 - 10.2 mg/dL 06/15/2022 1:32 AM [facility] Protein Total 7.8 6.0 - 8.3 g/dL 06/15/2022 1:32 AM [facility] Albumin 4.0 3.4 - 5.0 g/dL 06/15/2022 1:32 AM [facility] Bilirubin Total 0.1(L) 0.2 - 1.2 mg/dL 06/15/2022 1:32 AM [facility] Alkaline Phosphatase 71 40 - 150 U/L 06/15/2022 1:32 AM [facility] ALT 18 5 - 55 U/L 06/15/2022 1:32 AM [facility] AST 21 5 - 34 U/L 06/15/2022 1:32 AM [facility] Anion Gap 17 8 - 18 06/15/2022 1:32 AM [facility] BUN/Creatinine Ratio 11 7 - 23 06/15/2022 1:32 AM [facility] Osmolality Calculated 286 270 - 300 mOsm/kg 06/15/2022 1:32 AM [facility] Albumin/Globulin Ratio 1.1 1.1 - 2.3 06/15/2022 1:32 AM [facility] eGFR by CKD-EPI >90 >=90 mL/min/1.7 3 m2 06/15/2022 1:32 AM [facility] Blood BLOOD SPECIMEN / Unknown Venipuncture / Unknown 06/15/2022 12:51 AM CDT 06/15/2022 1:04 AM T Betsey Calle [employer]TING [employer]ING SUPERVISOR LAB - CHEMIS TRY ORDERABLES [facility] [address] [place] [address], [facility] [phone] * HCG BETA BLOOD QUANTITATIVE (06/15/2022 12:51 AM CDT) Beta-hCG Total Quantitative <3 mIU/mL 06/15/2022 1:36 AM [facility] Comment: This assay is cleared for use in the early detection of only. It is not approved for any other uses such as tumor marker screening, tumor marker monitoring, etc. and should not be used for any other purposes. HCG Numeric Result Interpretation: ? Non- Females: ? < 5 mIU/mL ? Post-Menopausal Females: ??< 7 mIU/mL ? Blood BLOOD SPECIMEN / Unknown Venipuncture / Unknown 06/15/2022 12:51 AM CDT 06/15/2022 1:04 AM CDT Betsey Calle [employer]TING [employer]ING SUPERVISOR LAB - CHEMIS TRY ORDERABLES Performing Organization Address City/[facility]/ZIP Co de Phone Number [place] [phone], [facility] [phone] * (ABNORMAL) THYROID PANEL W TSH (03/09/2010 11:22 AM CDT) TSH 0.415(L) 0.450 - 4.500 uIU/mL [facility] ACCOUNT BILL T4 Total 8.1 4.5 - 12.0 ug/dL [facility] ACCOUNT BILL T3 Uptake 29 24 - 39 % [facility] ACCOUNT BILL Free Thyroxine Index 2.3 1.2 - 4.9 [facility] ACCOUNT BILL BLOOD SPECIMEN / Unknown 03/09/2010 11:22 AM CDT 03/09/2010 6:14 PM CDT Narrative Resulting Agency Comment [facility] [address] ??[facility] [phone] Jan Doherty MD LAB - CHEMISTRY O RDERABLES [facility] ACCOUNT BILL * CULTURE URINE (11/30/2009 10:22 AM DUST MIXER) Urine Culture Routine Final report [facility] ACCOUNT BILL Result 1 Escherichia coli [facility] ACCOUNT BILL Comment:Greater than 100,000 colony forming units per mL Antimicrobial Susceptibility [facility] ACCOUNT BILL Comment: ?? S = Susceptible; I = Intermediate; R = Resistant ? P = Positive; N = Negative ?MICS are expressed in micrograms per mL ?? Antibiotic ? RSLT#1 ?RSLT#2 ?RSLT#3 ?RSLT#4 Amoxicillin/Clavulanic Acid ?S Ampicillin ? R Cefepime ? S Ceftriaxone ?S Cefuroxime ? S Cephalothin ?S Ciprofloxacin ?R ESBL ? N Gentamicin ? S Imipenem ? S Levofloxacin ? R Nitrofurantoin ? S Piperacillin/Tazobactam ?S Tetracycline ? S Tobramycin ? S Trimethoprim/Sulfa ? S URINE SPECIMEN OBTAINED BY CLEAN CATCH PROCEDURE / Unknown 11/30/2009 10:22 AM DUST MIXER 11/30/2009 10:29 PM DUST MIXER Narrative Resulting Agency Comment [facility] [place] [address] ??[place] [phone] Jan Doherty MD LAB - MICROBIOLOG Y ORDERABLES [facility] ACCOUNT BILL Care Teams Leisure Studies Professor Relationship Specialty Start Date End Date Jan Doherty MD [address] [phone] PCP - General 06/08/09
--- OUTSIDE RECORDS SUMMARY | 2024-11-05 18:38 | XMS_ITS | Clinical Summary ---
Author Organization [facility] Address [address] [facility] [place] [address] Care Team Providers Care Patient Financial Services Manager Name Role Phone Jan Doherty MD Primary Care Provider [phone] Source Comments [facility],non-owned Affiliates and Associated Physician Practices is amultiple site organization consisting of ambulatory clinics and hospital sitesin [place], [place], [place] and [place]. This disclosure is being madepursuant to the Care Everywhere program and may not contain all information available regarding this patient. Last updated 18.[facility] Allergies Active Allergy Reactions Criticality Noted Date Comments Sulfa Drugs 06/09/2009 Medications * Be aware that medications may not be up to date on this document. Alwaysverify current medications with the patient. Medication Sig [...] Due TDAP (7yrs+) 06/15/2022(Deferred: Patient Ref used),05/11/2014 Family History Medical History Relation Name Comments Asthma Brother Stroke Maternal Grandfather Heart Disease Maternal Grandmother Heart Failure Maternal Grandmother Hypercholesterolemia Maternal Grandmother Hypertension Maternal Grandmother Hypercholesterolemia Mother Hypertension Mother Thyroid Disease Mother Cancer Paternal Grandmother Hypercholesterolemia Paternal Grandmother Hypertension Paternal Grandmother Relation Name Status Comments Brother Maternal Grandfather Maternal Grandmother Mother Paternal Grandmother Social History Tobacco Use Types Packs/Day Years [...] 06/15/2022 12:28 AM CDT Plan of Treatment Health Maintenance Due Date Last Done Comments HIV SCREENING 2002 HEPATITIS C SCREENING 07/04/2005 HEPATITIS B VACCINE (1 of 3 - 19+ 3-dose series) 2006 DEPRESSION SCREENING 11/09/2023 DTAP/TDAP/TD VACCINES (2 - T d or Tdap) 05/11/2024 05/11/2014 COVID-19 VACCINE (2023-2 5 season) 2024 03/01/2021, 01/29/2021 INFLUENZA VACCINE (#1) 2024 10/02/2021 PAP SMEAR 09/17/2025 09/17/2022 ZOSTER VACCINE (1 of 2) 2037 HIB VACCINE Aged Out No longer eligi ble based on patient's age to complete this topic HPV VACCINE Aged Out No longer eligi ble based on patient's age to complete this topic MENINGOCOCCAL VACCINE Aged Out No jennifer loree eligible based on patient's age to complete this topic PNEUMOCOCCAL VACCINE Aged Out No long er eligible based on patient's age to complete this topic Procedures Procedure Name Priority Date/Time Associated Diagnosis Comments PAP SMEAR REPORT ORDER 09/17/2022 from Last 3 Months or Most Recently Relevant to Health Maintenance Results * PAP SMEAR REPORT ORDER (09/17/2022) 09/17/2022 Narrative 09/17/2022 Ordered by an unspecified provider. Scanned Document LAB - PATHOLOGY/CYTO LOGY ORDERABLES from Last 3 Months or Most Recently Relevant to Health Maintenance Care Teams Patient Financial Services Manager Relationship Specialty Start Date End Date Jan Doherty MD [address] [address] PCP - General 06/08/09
--- OUTSIDE RECORDS SUMMARY | 2024-11-05 18:39 | XMS_ITS | Encounter Summary ---
Author Organization [facility] Address [address] [place] [address] Care Team Providers Care Gauge Controller Name Role Phone Jan Doherty MD Primary Care Provider [phone] Reason for Visit * Reason Onset Date Comments MEDICATION REFILL 07/05/2012 Encounter Details Date Type Department Care Team (Late st Contact Info) Description 07/05/2012 Refill [facility] Medical [facility] - Internal Medicine [facility] [address] [address] Jan Doherty MD [address] [address] MEDICATION REFILL Social History Tobacco Use Types Packs/Day Years Used Date Smoking Tobacco: Never Alcohol Use Standard Drinks/Week Comments Yes 0 (1 standard drink = 0.6 oz pur e alcohol) Sex and Gender Information Value Date Recorded Sex Assigned at Not on file Gender Identity Not on file Sexual Orientation Not on file documented as of this encounter Plan of Treatment Not on file documented as of this encounter Visit Diagnoses Diagnosis ADD (attention deficit disorder)- Primary Attention deficit disorder without mention of hyperactivity documented in this encounter Care Teams Gauge Controller Relationship Specialty Start Date End Date Jan Doherty MD [address] [address] PCP - General 06/08/09 documented as of this encounter
--- OUTSIDE RECORDS SUMMARY | 2024-11-05 18:39 | XMS_ITS | Encounter Summary ---
Author Organization [facility] Address [address] [facility] [address] [place] [address] Care Team Providers Care Rug Drying Machine Operator Name Role Phone Jan Doherty MD Primary Care Provider [phone] Encounter Details Date Type Department Care Team (Late st Contact Info) Description 12/30/2014 Orders Only [facility] Medical [facility] - Internal Medicine [address] [place] [address] Jan Doherty MD [address] [address] ADD (attention deficit disorder) Social History Tobacco Use Types Packs/Day Years [...] hyperactivity documented in this encounter Care Teams Rug Drying Machine Operator Relationship Specialty Start Date End Date Jan Doherty MD [address] [address] PCP - General 06/08/09 documented as of this encounter
--- OUTSIDE RECORDS SUMMARY | 2024-11-05 18:39 | XMS_ITS | Encounter Summary ---
Author Organization [facility] Address [address] [place] [address] Care Team Providers Care Paint Booth Operator Name Role Phone Jan Doherty MD Primary Care Provider [phone] [phone] Reason for Visit * Reason Onset Date Comments MEDICATION REFILL 10/20/2011 Encounter Details Date Type Department Care Team (Late st Contact Info) Description 10/20/2011 Refill [facility] Medical [facility] - Internal Medicine [facility] [address] [address] Jan Doherty MD [address] [phone] MEDICATION REFILL Social History Tobacco [...] hyperactivity documented in this encounter Care Teams Paint Booth Operator Relationship Specialty Start Date End Date Jan Doherty MD [address] [address] PCP - General 06/08/09 documented as of this encounter
--- OUTSIDE RECORDS SUMMARY | 2024-11-05 18:39 | XMS_ITS | Encounter Summary ---
Author Organization [facility] Address [address] [place] [address] Care Team Providers Care Electrical Research Engineer Name Role Phone Jan Doherty MD Primary Care Provider +1 [phone] Encounter Details Date Type Department Care Team (Late st Contact Info) Description 10/27/2009 Orders Only [facility] Medical [facility] - Internal Medicine [address] [place] [address] Jan Doherty MD [address] [address] ADD (Attention Deficit Disorder) Social History Tobacco Use Types Packs/Day Years [...] hyperactivity documented in this encounter Care Teams Electrical Research Engineer Relationship Specialty Start Date End Date Jan Doherty MD [address] [address] PCP - General 06/08/09 documented as of this encounter
--- OUTSIDE RECORDS SUMMARY | 2024-11-05 18:39 | XMS_ITS | Encounter Summary ---
Author Organization [facility] Address [address] [facility] [place] [address] Care Team Providers Care Nurseryperson Name Role Phone Jan Doherty MD Primary Care Provider +1 [phone] Encounter Details Date Type Department Care Team (Late st Contact Info) Description 07/24/2012 Orders Only [facility] Medical [facility] - Internal Medicine [address] [place] [address] Jan Doherty MD [address] [address] ADD (attention deficit disorder) Social [...] hyperactivity documented in this encounter Care Teams Nurseryperson Relationship Specialty Start Date End Date Jan Doherty MD [address] [address] PCP - General 06/08/09 documented as of this encounter
--- OUTSIDE RECORDS SUMMARY | 2024-11-05 18:39 | XMS_ITS | Encounter Summary ---
Author Organization [facility] Address [address] [place] [address] Care Team Providers Care Network Internship Name Role Phone Jan Doherty MD Primary Care Provider +1 [phone] Reason for Visit * Reason Comments Medication Monitoring Encounter Details Date Type Department Care Team (Late st Contact Info) Description 02/14/2013 11:00 AM CDT Office Visit [facility] Medical [facility] - Internal Medicine [address] [address] Jan Doherty MD [address] [address] ADD (attention deficit disorder) (Primary Dx) Social History Tobacco Use Types Packs/Day Years Used Date Smoking Tobacco: Never Alcohol Use Standard Drinks/Week Comments Yes 0 (1 standard drink = 0.6 oz pur e alcohol) Sex and Gender Information Value Date Recorded Sex Assigned at Not on file Gender Identity Not on file Sexual Orientation Not on file documented as of this encounter Last Filed Vital Signs Vital Sign Reading Time Taken Comments Blood Pressure 110/60 02/14/2013 11:26 AM CDT Pulse - - Temperature - - Respiratory Rate - - Oxygen Saturation - - Inhaled Oxygen Concentration - - Weight 48.1 kg (106 lb) 02/14/2013 11:26 AM CDT Height - - Body Mass Index 19.08 06/09/2009 11:26 AM CDT documented in this encounter Progress Notes * aJn Doherty MD - 02/14/2013 11:44 AM CDT SUBJECTIVE: Maricel Cardona is a 27 y.o. female here today for follow up of ADD - needs more rx. General ROS: healthy ENT ROS: denies headaches, eyesight changes or difficulty hearing Respiratory ROS: no cough, shortness of breath, or wheezing Cardiovascular ROS: no chest pain or dyspnea on exertion Gastrointestinal ROS: no abdominal pain, change in bowel habits, or black or bloody stools Genito-Urinary ROS: no dysuria, trouble voiding, or hematuria Musculoskeletal ROS: negative Neurological ROS: no TIA or stroke symptoms OBJECTIVE: BP 110/60 Wt 106 lb (48.081 kg) SHEENT: Skin is warm and dry. Heart: Regular rate and rhythm. Lungs: Clear to auscultation bilaterally. Extremities: No edema. ASSESSMENT: Encounter Diagnosis Name Primary? ADD (attention deficit disorder) Yes PLAN: Orders Placed This Encounter ??? lisdexamfetamine (VYVANSE) 50 MG capsule Sig: Take 1 Cap by mouth every morning. Dispense: 30 Cap Refill: 0 ??? amphetamine-dextroamphetamine (ADDERALL) 10 MG tablet Si daily in the evening Dispense: 30 Tab Refill: 0 ??? acyclovir (ZOVIRAX) 200 MG capsule Sig: Take 1 Cap by mouth 2 times daily. Dispense: 60 Cap Refill: 12 The patient indicates understanding of these issues and agrees with the plan. documented in this encounter Plan of Treatment Not on file documented as of this encounter Visit Diagnoses Diagnosis ADD (attention deficit disorder)- Primary Attention deficit disorder without mention of hyperactivity documented in this encounter Care Teams Network Internship Relationship Specialty Start Date End Date Jan Doherty MD [address] [phone] PCP - General 06/08/09 documented as of this encounter
--- OUTSIDE RECORDS SUMMARY | 2024-11-05 18:39 | XMS_ITS | Encounter Summary ---
Author Organization [facility] Address [address] [facility] [place] [address] Care Team Providers Care Ethanol Operations Manager Name Role Phone Jan Doherty MD Primary Care Provider [phone] [phone] Reason for Visit * Reason Onset Date Comments MEDICATION REFILL 11/30/2014 Encounter Details Date Type Department Care Team (Late st Contact Info) Description 11/30/[address] [facility] Medical [facility] - Internal Medicine [address] [address] Jan Doherty MD [address] [address] MEDICATION REFILL Social History Tobacco [...] documented as of this encounter Visit Diagnoses Not on filedocumented in this encounter Care Teams Ethanol Operations Manager Relationship Specialty Start Date End Date Jan Doherty MD [address] [address] PCP - General 06/08/09 documented as of this encounter
--- OUTSIDE RECORDS SUMMARY | 2024-11-05 18:39 | XMS_ITS | Encounter Summary ---
Author Organization [facility] Address [address] [facility] [address] [place] [address] Care Team Providers Care Power And Recovery Supervisor Name Role Phone Jan Doherty MD Primary Care Provider [phone] [phone] Reason for Visit * Reason Onset Date Comments MEDICATION REFILL 06/21/2010 Encounter Details Date Type Department Care Team (Late st Contact Info) Description 06/21/2010 Refill [facility] Medical [facility] - Internal Medicine [facility] [address] Jan Doherty MD [address] [address] MEDICATION REFILL Social History Tobacco [...] hyperactivity documented in this encounter Care Teams Power And Recovery Supervisor Relationship Specialty Start Date End Date Jan Doherty MD [address] [address] PCP - General 06/08/09 documented as of this encounter
--- OUTSIDE RECORDS SUMMARY | 2024-11-05 18:39 | XMS_ITS | Encounter Summary ---
Author Organization [facility] Address [address] [facility] [place] [address] Care Team Providers Care Buckle Stringer Name Role Phone Jan Doherty MD Primary Care Provider [phone] [phone] Reason for Visit * Reason Onset Date Comments UTI 12/03/2009 Encounter Details Date Type Department Care Team (Late st Contact Info) Description 12/03/2009 Telephone [facility] - Internal Medicine [address] [address] Jan Doherty MD [address] [address] UTI Social History Tobacco Use Types Packs/Day Years Used Date Smoking Tobacco: Never Alcohol Use Standard Drinks/Week Comments Yes 0 (1 standard drink = 0.6 oz pur e alcohol) Sex and Gender Information Value Date Recorded Sex Assigned at Not on file Gender Identity Not on file Sexual Orientation Not on file documented as of this encounter Miscellaneous Notes * Telephone Encounter - Keya Garcia RN - 12/03/2009 9:00 AM CST Called patient and advised her that we received lab results from [facility] this morning. Dr. Doherty wants her to start an antibiotic which has been e- prescribed to her pharmacy. OTYPE OPERATOR * Telephone Encounter - Keya Garcia RN - 12/03/2009 8:54 AM CST Pt called. Just went to [facility] to give urine specimen on 11/30/09. (see faxed result). Is requesting antibiotic. OTYPE OPERATOR documented in this encounter Plan of Treatment Not on file documented as of this encounter Visit Diagnoses Not on filedocumented in this encounter Care Teams Buckle Stringer Relationship Specialty Start Date End Date Jan Doherty MD [address] [phone] PCP - General 06/08/09 documented as of this encounter
--- OUTSIDE RECORDS SUMMARY | 2024-11-05 18:39 | XMS_ITS | Encounter Summary ---
Author Organization [facility] Address [address] [place] [address] Care Team Providers Care Sterile Processing Technician Name Role Phone Jan Doherty MD Primary Care Provider +1 [phone] Reason for Visit * Reason Onset Date Comments MEDICATION REFILL 09/16/2012 Encounter Details Date Type Department Care Team (Late st Contact Info) Description 09/16/2012 Refill [facility] Medical [facility] - Internal Medicine [address] [address] Jan Doherty MD [address] [address] MEDICATION REFILL Social History Tobacco [...] encounter Miscellaneous Notes * Telephone Encounter - Rebecca Hawk MA - 09/16/2012 9:17 AM CST Last filled aug 12 2012. Requested Prescriptions Pending Prescriptions Disp Refills ??? lisdexamfetamine (VYVANSE) 40 MG capsule 30 Cap 0 Sig: Take 1 Cap by mouth every morning. Pt mom wants this mailed to the home. R FILTER CLEANER documented in this encounter Plan of Treatment Not on file documented as of this encounter Visit Diagnoses Diagnosis ADD (attention deficit disorder)- Primary Attention deficit disorder without mention of hyperactivity documented in this encounter Care Teams Sterile Processing Technician Relationship Specialty Start Date End Date Jan Doherty MD [address] [facility] [address] [phone] PCP - General 06/08/09 documented as of this encounter
--- OUTSIDE RECORDS SUMMARY | 2024-11-05 18:39 | XMS_ITS | Encounter Summary ---
Author Organization [facility] Address [address] [facility] [place] [address] Care Team Providers Care Systems Analyst Name Role Phone Jan Doherty MD Primary Care Provider [phone] [phone] Encounter Details Date Type Department Care Team (Late st Contact Info) Description 11/20/2012 Orders Only [facility] Medical [facility] - Internal Medicine [address] [place] [address] Jan Doherty MD [address] [address] ADD (attention deficit disorder) Social [...] hyperactivity documented in this encounter Care Teams Systems Analyst Relationship Specialty Start Date End Date Jan Doherty MD [address] [address] PCP - General 06/08/09 documented as of this encounter
--- OUTSIDE RECORDS SUMMARY | 2024-11-05 18:39 | XMS_ITS | Encounter Summary ---
Author Organization [facility] Address [address] [facility] [place] [address] Care Team Providers Care Tractor Trailer Technician Name Role Phone Jan Doherty MD Primary Care Provider [phone] [phone] Reason for Visit * Reason Onset Date Comments UTI 06/22/2012 Encounter Details Date Type Department Care Team (Late st Contact Info) Description 06/22/2012 Telephone [facility] Medical [facility] - Internal Medicine [address] [address] Jan Doherty MD [address] [address] UTI Social History Tobacco Use [...] Telephone Encounter - Keya Garcia RN - 06/22/2012 12:59 PM CDT Called pt's mother and advised her that prescription for Cipro has been sent to her pharmacy. * Telephone Encounter - Kane Fuentes MD - 06/22/2012 10:40 AM CDT cipro 250 mg #6 one bid * Telephone Encounter - Keya Garcia RN - 06/22/2012 10:38 AM CDT Pt's mother called. Pt experiencing symptoms of UTI with burning on urination, urgency, frequency. Would like prescription antibiotic sent to her pharmacy. (allergy to Sulfa drugs). documented in this encounter Plan of Treatment Not on file documented as of this encounter Visit Diagnoses Not on filedocumented in this encounter Care Teams Tractor Trailer Technician Relationship Specialty Start Date End Date Jan Doherty MD [address] [phone] PCP - General 06/08/09 documented as of this encounter
--- OUTSIDE RECORDS SUMMARY | 2024-11-05 18:39 | XMS_ITS | Encounter Summary ---
Author Organization [facility] Address [address] [place] [address] Care Team Providers Care Route Relief Driver Name Role Phone Jan Doherty MD Primary Care Provider [phone] -[phone] Reason for Visit * Reason Onset Date Comments Medication Issue 05/24/2012 Encounter Details Date Type Department Care Team (Late st Contact Info) Description 05/24/2012 Telephone [facility] Medical [facility] - Internal Medicine [address] [address] Jan Doherty MD [address] [address] Medication Issue Social History Tobacco Use Types Packs/Day Years Used Date Smoking Tobacco: Never Alcohol Use Standard Drinks/Week Comments Yes 0 (1 standard drink = 0.6 oz pur e alcohol) Sex and Gender Information Value Date Recorded Sex Assigned at Not on file Gender Identity Not on file Sexual Orientation Not on file documented as of this encounter Miscellaneous Notes * Telephone Encounter - Jan Doherty MD - 05/24/2012 1:04 PM CDT ?daily or prn and sure * Telephone Encounter - Makayla Arango RN - 05/24/2012 11:25 AM CDT Her mother called and she usually gets Acyclovir from her LIVESTOCK EXHIBITOR and she wants you to order documented in this encounter Plan of Treatment Not on file documented as of this encounter Visit Diagnoses Not on filedocumented in this encounter Care Teams Route Relief Driver Relationship Specialty Start Date End Date Jan Doherty MD [address] [address] PCP - General 06/08/09 documented as of this encounter
--- OUTSIDE RECORDS SUMMARY | 2024-11-05 18:39 | XMS_ITS | Encounter Summary ---
Author Organization [facility] Address [address] [facility] [place] [address] Care Team Providers Care Grey Inspector Name Role Phone Jan Doherty MD Primary Care Provider +1 -[phone] Encounter Details Date Type Department Care Team (Late st Contact Info) Description 12/15/2009 Orders Only [facility] Medical [facility] - Internal Medicine [address] [place] [address] Jan Doherty MD [address] [address] ADD (Attention Deficit Disorder) Social [...] hyperactivity documented in this encounter Care Teams Grey Inspector Relationship Specialty Start Date End Date Jan Doherty MD [address] [address] PCP - General 06/08/09 documented as of this encounter
--- OUTSIDE RECORDS SUMMARY | 2024-11-05 18:39 | XMS_ITS | Encounter Summary ---
Author Organization [facility] Address [address] [place] [address] Care Team Providers Care Senior Product Integrity Engineer Name Role Phone Jan oDherty MD Primary Care Provider [phone] -[phone] Reason for Visit * Reason Onset Date Comments MEDICATION REFILL 06/13/2013 Encounter Details Date Type Department Care Team (Late st Contact Info) Description 06/13/2013 Refill [facility] Medical [facility] - Internal Medicine [facility] [address] [address] Jan Doherty MD [address] [address] MEDICATION REFILL Social History Tobacco [...] hyperactivity documented in this encounter Care Teams Senior Product Integrity Engineer Relationship Specialty Start Date End Date Jan Doherty MD [address] [address] PCP - General 06/08/09 documented as of this encounter
--- OUTSIDE RECORDS SUMMARY | 2024-11-05 18:39 | XMS_ITS | Encounter Summary ---
Author Organization [facility] Address [address] [facility] [place] [address] Care Team Providers Care Cooler Room Worker Name Role Phone Silas Fallon MD Primary Care Provider +1 -[phone] Reason for Visit * Reason Comments Thyroid Problem Encounter Details Date Type Department Care Team (Late st Contact Info) Description 03/09/2010 10:50 AM CDT Office Visit [facility] Medical [facility] - Internal Medicine [address] [address] Silas Fallon MD [address] [address] Goiter (Primary Dx); ADD (Attention Deficit Disorder) Social History Tobacco [...] Sign Reading Time Taken Comments Blood Pressure 90/60 03/09/2010 11:11 AM CDT Pulse - - Temperature - - Respiratory Rate - - Oxygen Saturation - - Inhaled Oxygen Concentration - - Weight 45.4 kg (100 lb) 03/09/2010 11:11 AM CDT Height - - Body Mass Index 18 06/09/2009 11:26 AM CDT documented in this encounter Progress Notes * Jannie Logan - 03/13/2010 11:15 AM CDTQuick Note: Letter sent * Silas Fallon MD - 03/11/2010 10:29 AM CDTQuick Note: Send letter * Silas Fallon MD - 03/09/2010 11:30 AM CDTAddended by: SILAS FALLON on: 03/09/2010 11:30:51 AM Modules accepted: Orders * Silas Fallon MD - 03/09/2010 11:19 AM CDT SUBJECTIVE: Maricel Cardona is a 24 y.o. female here today for possible goiter. No sx. General ROS: healthy ENT ROS: denies headaches, [...] no TIA or stroke symptoms OBJECTIVE: BP 90/60 Wt 45.36 kg (100 lb) SHEENT: Skin is warm and dry. Neck is supple, thyroid is smooth. Nasal mucosa is unremarkable. Heart: Regular rate and rhythm. Lungs: Clear to auscultation bilaterally. Extremities: No edema. ASSESSMENT: Encounter Diagnosis Name Primary? Goiter Yes PLAN: Orders Placed This Encounter ??? Comprehensive metabolic panel ??? Cbc w auto differential ??? Thyroid panel w tsh The patient indicates understanding of these issues and agrees with the plan. * Jannie Logan - 03/09/2010 11:11 AM CDT the patient in today for thyroid check documented in this encounter Plan of Treatment Not on file documented as of this encounter Procedures Procedure Name Priority Date/Time Associated Diagnosis Comments THYROID PANEL W TSH (TSH,T4,T3 UPTAKE,FTI) Routine 03/09/2010 11:22 AM CDT Goiter CBC W AUTO DIFFERENTIAL Routine 03/09/2010 11:22 AM CDT Goiter COMPREHENSIVE METABOLIC PANEL Routine 03/09/2010 11:22 AM CDT Goiter documented in this encounter Results * (ABNORMAL) THYROID PANEL W TSH (03/09/2010 [...] PM CDT Narrative Resulting Agency Comment [facility] [address] ??[facility] [id number] Silas Fallon MD LAB - CHEMISTRY O RDERABLES [facility] ACCOUNT BILL * CBC W AUTO DIFFERENTIAL (03/09/2010 11:22 AM CDT) WBC 4.2 4.0 - 10.5 x10E3/uL [facility] ACCOUNT BILL RBC 3.81 3.80 - 5.10 x10E6/uL [facility] ACCOUNT BILL Hemoglobin 11.9 11.5 - 15.0 g/dL [facility] ACCOUNT BILL Hematocrit 34.6 34.0 - 44.0 % [facility] ACCOUNT BILL MCV 91 80 - 98 fL [facility] ACCOUNT BILL MCH 31.2 27.0 - 34.0 pg [facility] ACCOUNT BILL MCHC 34.4 32.0 - 36.0 g/dL [facility] ACCOUNT BILL RDW 14.4 11.7 - 15.0 % [facility] ACCOUNT BILL Platelet Count 269 140 - 415 x10E3/uL [facility] ACCOUNT BILL Granulocytes % 48 40 - 74 % [facility] ACCOUNT BILL Lymphocytes % 40 14 - 46 % [facility] ACCOUNT BILL Monocytes % 10 4 - 13 % [facility] ACCOUNT BILL Eosinophils % 2 0 - 7 % [facility] ACCOUNT BILL Basophils % 0 0 - 3 % [facility] ACCOUNT BILL Immature Cells NOT AVAIL. [facility] ACCOUNT BILL Granulocytes Absolute 2.0 1.8 - 7.8 x10E3/uL [facility] ACCOUNT BILL Lymphocytes Absolute 1.7 0.7 - 4.5 x10E3/uL [facility] ACCOUNT BILL Monocytes Absolute 0.4 0.1 - 1.0 x10E3/uL [facility] ACCOUNT BILL Eosinophils Absolute 0.1 0.0 - 0.4 x10E3/uL [facility] ACCOUNT BILL Basophils Absolute 0.0 0.0 - 0.2 x10E3/uL [facility] ACCOUNT BILL Immature Granulocytes NOT AVAIL. [facility] ACCOUNT BILL Immature Granulocytes Absolute NOT AVAIL. [facility] ACCOUNT BILL nRBC NOT AVAIL. [facility] ACCOUNT BILL Comment Hematology NOT AVAIL. [facility] ACCOUNT BILL BLOOD SPECIMEN / Unknown 03/09/2010 11:22 AM CDT 03/09/2010 6:14 PM CDT Narrative [facility] ACCOUNT BILL - 03/10/2010 8:10 AM CDT Additional Result Information IMMATURE CELLS ([facility]): RESULT NOT AVAILABLE IMMATURE GRANULOCYTES ([facility]): RESULT NOT AVAILABLE IMMATURE GRANS (ABS) ([facility]): RESULT NOT AVAILABLE NRBC ([facility]): RESULT NOT AVAILABLE HEMATOLOGY COMMENTS: ??BLOOD,URINE ([facility]): RESULT NOT AVAILABLE Resulting Agency Comment [facility] [address] ??[facility] [id number] Silas Fallon MD LAB - HEMATOLOGY ORDERABLES [facility] ACCOUNT BILL * (ABNORMAL) COMPREHENSIVE METABOLIC PANEL (03/09/2010 11:22 AM CDT) Glucose 57(L) 65 - 99 mg/dL [facility] ACCOUNT BILL Comment: This serum sample was in contact with the red cells when received. This may adversely affect serum Chemistries. BUN 9 5 - 26 mg/dL [facility] ACCOUNT BILL Creatinine 0.72 0.57 - 1.00 mg/dL [facility] ACCOUNT BILL eGFR by MDRD >59 >59 mL/min/1.7 3 [facility] ACCOUNT BILL eGFR by MDRD >59 >59 mL/min/1.7 3 [facility] ACCOUNT BILL Comment: Note: ??Persistent reduction for 3 months or more in an eGFR <60 mL/min/1.73 m2 defines CKD. ??Patients with eGFR values >/=60 mL/min/1.73 m2 may also have CKD if evidence of persistent proteinuria is present. Additional information may be found at www.[facility].org. BUN/Creatinine Ratio 13 8 - 27 [facility] ACCOUNT BILL Sodium 139 135 - 145 mmol/L [facility] ACCOUNT BILL Potassium 3.7 3.5 - 5.2 mmol/L [facility] ACCOUNT BILL Chloride 100 97 - 108 mmol/L [facility] ACCOUNT BILL CO2 21 20 - 32 mmol/L [facility] ACCOUNT BILL Calcium 8.9 8.7 - 10.2 mg/dL [facility] ACCOUNT BILL Protein Total 6.9 6.0 - 8.5 g/dL [facility] ACCOUNT BILL Albumin 4.2 3.5 - 5.5 g/dL [facility] ACCOUNT BILL Globulin Total 2.7 1.5 - 4.5 g/dL [facility] ACCOUNT BILL Albumin/Globulin Ratio 1.6 1.1 - 2.5 [facility] ACCOUNT BILL Bilirubin Total 0.3 0.0 - 1.2 mg/dL [facility] ACCOUNT BILL Comment:Please note refere nce interval change Alkaline Phosphatase 50 25 - 150 IU/L [facility] ACCOUNT BILL AST 16 0 - 40 IU/L [facility] ACCOUNT BILL ALT 9 0 - 40 IU/L [facility] ACCOUNT BILL BLOOD SPECIMEN / Unknown 03/09/2010 11:22 AM CDT 03/09/2010 6:14 PM CDT Narrative Resulting Agency Comment [facility] [place] [address] [facility] ??[facility] [id number] Silas Fallon MD LAB - CHEMISTRY O RDERABLES [facility] ACCOUNT BILL documented in this encounter Visit Diagnoses Diagnosis Goiter- Primary Goiter, unspecified ADD (attention deficit disorder) Attention deficit disorder without mention of hyperactivity documented in this encounter Care Teams Cooler Room Worker Relationship Specialty Start Date End Date Silas Fallon MD [address] [phone] PCP - General 06/08/09 documented as of this encounter
--- OUTSIDE RECORDS SUMMARY | 2024-11-05 18:39 | XMS_ITS | Encounter Summary ---
Author Organization [facility] Address [address] [place] [address] Care Team Providers Care Crab Meat Processor Name Role Phone Jan Doherty MD Primary Care Provider +1 -[phone] Reason for Visit * Reason Onset Date Comments MEDICATION REFILL 05/30/2015 Encounter Details Date Type Department Care Team (Late st Contact Info) Description 05/30/2015 Refill [facility] Medical [facility] - Internal Medicine [address] [address] Jan Doherty MD [address] [address] MEDICATION REFILL Social History Tobacco [...] encounter Miscellaneous Notes * Telephone Encounter - Bonita Argueta - 05/30/2015 3:32 PM CDT Requested Prescriptions Pending Prescriptions Disp Refills ??? acyclovir (ZOVIRAX) 200 MG capsule 180 Cap 3 Sig: Take 1 Cap by mouth 2 times daily GLO:05/11/14 LRF:05/11/14 FOV:Unknown Please send to the pharmacy. documented in this encounter Plan of Treatment Not on file documented as of this encounter Visit Diagnoses Diagnosis HSV (herpes simplex virus) infection- Primary Herpes simplex without mention of complication documented in this encounter Care Teams Crab Meat Processor Relationship Specialty Start Date End Date Jan Doherty MD [address] [phone] PCP - General 06/08/09 documented as of this encounter
--- OUTSIDE RECORDS SUMMARY | 2024-11-05 18:39 | XMS_ITS | Encounter Summary ---
Author Organization [facility] Address [address] [place] [address] Care Team Providers Care Terminal Supervisor Name Role Phone Silas Fallon MD Primary Care Provider +1 -[phone] Reason for Visit * Reason Onset Date Comments MEDICATION REFILL 03/06/2014 Encounter Details Date Type Department Care Team (Late st Contact Info) Description 03/06/2014 Refill [facility] Medical [facility] - Internal Medicine [address] [address] Silas Fallon MD [address] [address] MEDICATION REFILL Social History Tobacco [...] encounter Miscellaneous Notes * Telephone Encounter - Wendie Blue - 03/06/2014 4:34 PM CDT Requested Prescriptions Signed Prescriptions Disp Refills ??? acyclovir (ZOVIRAX) 200 MG capsule 60 Cap 1 Sig: Take 1 Cap by mouth 2 times daily. Authorizing Provider: SILAS FALLON Ordering User: WENDIE BLUE documented in this encounter Plan of Treatment Not on file documented as of this encounter Visit Diagnoses Not on filedocumented in this encounter Care Teams Terminal Supervisor Relationship Specialty Start Date End Date Silas Fallon MD [address] [facility] [address] [phone] PCP - General 06/08/09 documented as of this encounter
--- OUTSIDE RECORDS SUMMARY | 2024-11-05 18:39 | XMS_ITS | Encounter Summary ---
Author Organization [facility] Address [address] [place] [address] Care Team Providers Care Pole Classifier Name Role Phone Jan Doherty MD Primary Care Provider +1 [phone] Encounter Details Date Type Department Care Team (Late st Contact Info) Description 09/07/2010 Orders Only [facility] - Internal Medicine [address] [place] [address] Jan Doherty MD [address] [address] ADD (attention deficit disorder) Social [...] hyperactivity documented in this encounter Care Teams Pole Classifier Relationship Specialty Start Date End Date Jan Doherty MD [address] [address] PCP - General 06/08/09 documented as of this encounter
--- OUTSIDE RECORDS SUMMARY | 2024-11-05 18:39 | XMS_ITS | Encounter Summary ---
Author Organization [facility] Address [address] [facility] [place] [address] Care Team Providers Care Real Estate Administrative Assistant Name Role Phone Jan Doherty MD Primary Care Provider +1 -[phone] Reason for Visit * Reason Onset Date Comments MEDICATION REFILL 05/05/2012 Encounter Details Date Type Department Care Team (Late st Contact Info) Description 05/05/2012 Refill [facility] Medical [facility] - Internal Medicine [address] [address] Jan Doherty MD [address] [address] MEDICATION REFILL Social History Tobacco [...] encounter Miscellaneous Notes * Telephone Encounter - Gema Hampton MA - 05/07/2012 10:55 AM CDT Mailed to patient. * Telephone Encounter - Gema Hampton MA - 05/05/2012 9:52 AM CDT Mail script to home. documented in this encounter Plan of Treatment Not on file documented as of this encounter Visit Diagnoses Diagnosis ADD (attention deficit disorder)- Primary Attention deficit disorder without mention of hyperactivity documented in this encounter Care Teams Real Estate Administrative Assistant Relationship Specialty Start Date End Date Jan Doherty MD [address] [phone] PCP - General 06/08/09 documented as of this encounter
--- OUTSIDE RECORDS SUMMARY | 2024-11-05 18:39 | XMS_ITS | Encounter Summary ---
Author Organization [facility] Address [address] [facility] [place] [address] Care Team Providers Care Heavy Machinery Operator Name Role Phone Jan Doherty MD Primary Care Provider +1 -[phone] Reason for Visit * Reason Onset Date Comments UTI 10/28/2013 Encounter Details Date Type Department Care Team (Late st Contact Info) Description 10/28/2013 Telephone [facility] Medical [facility] - Internal Medicine [address] [address] Jan Doherty MD [address] [address] UTI Social History Tobacco Use [...] Telephone Encounter - Keya Garcia RN - 10/28/2013 4:22 PM CST Called pt's mother and advised her that prescription antibiotic has been sent to pt's pharmacy. D ANALYST * Telephone Encounter - Jan Doherty MD - 10/28/2013 3:41 PM BRAND ANALYST cipro 500 bid for 7 D ANALYST * Telephone Encounter - Keya Garcia RN - 10/28/2013 2:31 PM CST Pt's mother called. Pt c/o has another UTI. Has burning on urination, frequency, urgency and cloudyurine. Wants to know if she can get a prescription antibiotic? D ANALYST documented in this encounter Plan of Treatment Not on file documented as of this encounter Visit Diagnoses Not on filedocumented in this encounter Care Teams Heavy Machinery Operator Relationship Specialty Start Date End Date Jan Doherty MD [address] [phone] PCP - General 06/08/09 documented as of this encounter
--- OUTSIDE RECORDS SUMMARY | 2024-11-05 18:39 | XMS_ITS | Encounter Summary ---
Author Organization [facility] Address [address] [place] [address] Care Team Providers Care Social Worker Palliative Care Name Role Phone Jan Doherty MD Primary Care Provider +1 [phone] Reason for Visit * Reason Onset Date Comments MEDICATION REFILL 03/13/2015 Encounter Details Date Type Department Care Team (Late st Contact Info) Description 03/13/2015 Refill [facility] - Internal Medicine [address] [address] Jan Doherty MD [address] [address] MEDICATION REFILL Social History Tobacco [...] Telephone Encounter - Rebecca Hawk MA - 03/15/2015 9:07 AM CDT Last filled 02/07/2015 documented in this encounter Plan of Treatment Not on file documented as of this encounter Visit Diagnoses Diagnosis ADD (attention deficit disorder)- Primary Attention deficit disorder without mention of hyperactivity documented in this encounter Care Teams Social Worker Palliative Care Relationship Specialty Start Date End Date Jan Doherty MD [address] [phone] PCP - General 06/08/09 documented as of this encounter
--- OUTSIDE RECORDS SUMMARY | 2024-11-05 18:39 | XMS_ITS | Encounter Summary ---
Author Organization [facility] Address [address] [place] [address] Care Team Providers Care Automobile Detailer Name Role Phone Jan Doherty MD Primary Care Provider [phone] -[phone] Reason for Visit * Reason Onset Date Comments Medication Prior Auth Request 02/13/2015 Encounter Details Date Type Department Care Team (Late st Contact Info) Description 02/13/[address] [facility] - Internal Medicine [address] [address] Jan Doherty MD [address] [phone] Medication Prior Auth Request Social History Tobacco Use Types Packs/Day Years Used Date Smoking Tobacco: Never Alcohol Use Standard Drinks/Week Comments Yes 0 (1 standard drink = 0.6 oz pur e alcohol) Sex and Gender Information Value Date Recorded Sex Assigned at Not on file Gender Identity Not on file Sexual Orientation Not on file documented as of this encounter Miscellaneous Notes * Telephone Encounter - Sahra Rodriguez MA - 02/13/2015 9:45 AM CDT ADDERALL APPROVED 01/13/15-02/12/16 PHARMACY NOTIFIED VIA FAX documented in this encounter Plan of Treatment Not on file documented as of this encounter Visit Diagnoses Diagnosis ADD (attention deficit disorder)- Primary Attention deficit disorder without mention of hyperactivity documented in this encounter Care Teams Automobile Detailer Relationship Specialty Start Date End Date Jan Doherty MD [address] [phone] PCP - General 06/08/09 documented as of this encounter
--- OUTSIDE RECORDS SUMMARY | 2024-11-05 18:39 | XMS_ITS | Encounter Summary ---
Author Organization [facility] Address [address] [place] [address] Care Team Providers Care Station Mechanic Apprentice Name Role Phone Jan Doherty MD Primary Care Provider +1 -[phone] Reason for Visit * Reason Comments Refill Request Encounter Details Date Type Department Care Team (Late st Contact Info) Description 11/07/2012 Refill [facility] Medical [facility] - Internal Medicine [address] [place] [address] Jan Doherty MD [address] [address] Refill Request Social History Tobacco Use Types Packs/Day Years Used Date Smoking Tobacco: Never Alcohol Use Standard Drinks/Week Comments Yes 0 (1 standard drink = 0.6 oz pur e alcohol) Sex and Gender Information Value Date Recorded Sex Assigned at Not on file Gender Identity Not on file Sexual Orientation Not on file documented as of this encounter Miscellaneous Notes * Telephone Encounter - Liliana Dash MA - 11/10/2012 3:55 PM CIRCULAR KNITTER Requested Prescriptions Pending Prescriptions Disp Refills ??? acyclovir (ZOVIRAX) 200 MG capsule [Pharmacy Med Name: ACYCLOVIR 200MG CAP] 60 Cap 1 Sig: TAKE ONE CAPSULE BY MOUTH TWICE DAILY Last Filled:05/24/12 Last Visit:12/27/11 Future Visit:NONE ULAR KNITTER documented in this encounter Plan of Treatment Not on file documented as of this encounter Visit Diagnoses Not on filedocumented in this encounter Care Teams Station Mechanic Apprentice Relationship Specialty Start Date End Date Jan Doherty MD [address] [phone] PCP - General 06/08/09 documented as of this encounter
--- OUTSIDE RECORDS SUMMARY | 2024-11-05 18:39 | XMS_ITS | Encounter Summary ---
Author Organization [facility] Address [address] [facility] [place] [address] Care Team Providers Care Burglary Investigator Name Role Phone Jan Doherty MD Primary Care Provider [phone] -[phone] Encounter Details Date Type Department Care Team (Late st Contact Info) Description 02/13/2011 Orders Only [facility] Medical [facility] - Internal Medicine [facility] [address] Jan Doherty MD [address] [address] ADD (attention deficit disorder) Social History Tobacco Use Types Packs/Day Years Used Date Smoking Tobacco: Never Alcohol Use Standard Drinks/Week Comments Yes 0 (1 standard drink = 0.6 oz pur e alcohol) Sex and Gender Information Value Date Recorded Sex Assigned at Not on file Gender Identity Not on file Sexual Orientation Not on file documented as of this encounter Progress Notes * Makayla Arango RN - 02/20/2011 1:35 PM CDTAddended by: MAKAYLA ARANGO on: 02/20/2011 Modules accepted: Orders documented in this encounter Plan of Treatment Not on file documented as of this encounter Visit Diagnoses Diagnosis ADD (attention deficit disorder)- Primary Attention deficit disorder without mention of hyperactivity documented in this encounter Care Teams Burglary Investigator Relationship Specialty Start Date End Date Jan Doherty MD [address] [facility] [address] [address] PCP - General 06/08/09 documented as of this encounter
--- OUTSIDE RECORDS SUMMARY | 2024-11-05 18:39 | XMS_ITS | Encounter Summary ---
Author Organization [facility] Address [address] [place] [address] Care Team Providers Care Quality Assurance Consultant Name Role Phone Silas Fallon MD Primary Care Provider +1 -[phone] Reason for Visit * Reason Onset Date Comments MEDICATION REFILL 12/05/2014 Encounter Details Date Type Department Care Team (Late st Contact Info) Description 12/05/2014 Refill [facility] Medical [facility] - Internal Medicine [address] [address] Silas Fallon MD [address] [address] MEDICATION REFILL Social History Tobacco [...] Miscellaneous Notes * Telephone Encounter - Sahra Boyle MA - 12/07/2014 4:22 PM CST Requested Prescriptions Signed Prescriptions Disp Refills ??? lisdexamfetamine (VYVANSE) 50 MG capsule 30 Cap 0 Si Cap every morning. Authorizing Provider: SILAS FALLON Ordering User: SAHRA BOYLE ??? amphetamine-dextroamphetamine (ADDERALL) 10 MG tablet 30 Tab 0 Si daily in the evening Authorizing Provider: SILAS FALLON Ordering User: SAHRA BOYLE ITY FACILITATOR documented in this encounter Plan of Treatment Not on file documented as of this encounter Visit Diagnoses Diagnosis ADD (attention deficit disorder)- Primary Attention deficit disorder without mention of hyperactivity documented in this encounter Care Teams Quality Assurance Consultant Relationship Specialty Start Date End Date Silas Fallon MD [address] [address] PCP - General 06/08/09 documented as of this encounter
--- OUTSIDE RECORDS SUMMARY | 2024-11-05 18:39 | XMS_ITS | Encounter Summary ---
Author Organization [facility] Address [address] [place] [address] Care Team Providers Care Swing Frame Grinder Operator Name Role Phone Jan Doherty MD Primary Care Provider [phone] -[phone] Reason for Visit * Reason Onset Date Comments UTI 05/19/2011 Encounter Details Date Type Department Care Team (Late st Contact Info) Description 05/19/2011 Telephone [facility] Medical [facility] - Internal Medicine [address] [address] Jan Doherty MD [address] [address] UTI Social History Tobacco Use [...] Telephone Encounter - Keya Garcia RN - 05/19/2011 2:49 PM CDT Called pt's mother's cell phone and left a detailed message that prescription for Cipro has been sent to the [facility] pharmacy in [place], [place]. * Telephone Encounter - Jan Doherty MD - 05/19/2011 2:45 PM CDT 7 DAYS * Telephone Encounter - Keya Garcia RN - 05/19/2011 2:21 PM CDT Pt's mother, Debbie dooley, pt has symptoms of a UTI, frequency, urgency, cloudy urine, burningon urination. Would like a prescription for Cipro sent to her pharmacy. documented in this encounter Plan of Treatment Not on file documented as of this encounter Visit Diagnoses Not on filedocumented in this encounter Care Teams Swing Frame Grinder Operator Relationship Specialty Start Date End Date Jan Doherty MD [address] [address] PCP - General 06/08/09 documented as of this encounter
--- OUTSIDE RECORDS SUMMARY | 2024-11-05 18:39 | XMS_ITS | Encounter Summary ---
Author Organization [facility] Address [address] [facility] [place] [address] Care Team Providers Care Auxiliary Plant Operator Name Role Phone Jan Doherty MD Primary Care Provider [phone] -[phone] Reason for Visit * Reason Comments Medication Check Encounter Details Date Type Department Care Team (Late st Contact Info) Description 05/11/2014 3:00 PM CDT Office Visit [facility] Medical [facility] - Internal Medicine [address] [address] Jan Doherty MD [address] [address] ADD (attention deficit disorder) (Primary Dx); Need for prophylactic vaccination with combined frdgsrarmf-ggsjnqr-cd rtussis (DTP) vaccine; HSV (herpes simplex virus) infection Social History Tobacco Use Types Packs/Day Years [...] Sign Reading Time Taken Comments Blood Pressure 100/60 05/11/2014 3:36 PM CDT Pulse - - Temperature - - Respiratory Rate - - Oxygen Saturation - - Inhaled Oxygen Concentration - - Weight 49.9 kg (110 lb) 05/11/2014 3:36 PM CDT Height 157.5 cm (5' 2 ) 05/11/2014 3:36 PM CDT Body Mass Index 20.12 05/11/2014 3:36 PM CDT documented in this encounter Progress Notes * Jan Doherty MD - 05/11/2014 3:48 PM CDT SUBJECTIVE: Maricel Cardona is a 28 y.o. female here today for follow up of ADD - doing well. HSV is stable on rx General ROS: healthy ENT ROS: denies headaches, eyesight changes or difficulty hearing Respiratory ROS: no cough, shortness of breath, or wheezing Cardiovascular ROS: no chest pain or dyspnea on exertion Gastrointestinal ROS: no abdominal pain, change in bowel habits, or black or bloody stools Genito-Urinary ROS: no dysuria, trouble voiding, or hematuria Musculoskeletal ROS: negative Neurological ROS: no TIA or stroke symptoms Medicines and allergies reviewed in detail with patient OBJECTIVE: BP 100/60 Wt 49.896 kg (110 lb) BMI 20.11 kg/m2 SHEENT: Skin is warm and dry. Heart: Regular rate and rhythm. Lungs: Clear to auscultation bilaterally.. Extremities: No edema. ASSESSMENT/PLAN: 1. ADD - continue rx 2. hsv - continue acyclovir The patient indicates understanding of these issues and agrees with the plan. documented in this encounter Plan of Treatment Not on file documented as of this encounter Visit Diagnoses Diagnosis ADD (attention deficit disorder)- Primary Attention deficit disorder without mention of hyperactivity Need for prophylactic vaccination with combined lubudyierl-hjlfdlt-vefcwwexa (DTP) vaccine HSV (herpes simplex virus) infection Herpes simplex without mention of complication documented in this encounter Care Teams Auxiliary Plant Operator Relationship Specialty Start Date End Date Jan Doherty MD [address] [phone] PCP - General 06/08/09 documented as of this encounter
--- OUTSIDE RECORDS SUMMARY | 2024-11-05 18:39 | XMS_ITS | Encounter Summary ---
Author Organization [facility] Address [address] [place] [address] Care Team Providers Care Boat Driver Name Role Phone Jan Doherty MD Primary Care Provider [phone] -[phone] Reason for Visit * Reason Comments Follow-up Encounter Details Date Type Department Care Team (Late st Contact Info) Description 12/27/2011 10:30 AM PLATFORM LOADER Office Visit [facility] Medical [facility] - Internal Medicine [address] [address] Jan Doherty MD [address] [address] ADD (attention deficit disorder) (Primary [...] Sign Reading Time Taken Comments Blood Pressure 86/60 12/27/2011 11:02 AM PLATFORM LOADER Pulse - - Temperature - - Respiratory Rate - - Oxygen Saturation - - Inhaled Oxygen Concentration - - Weight 46.9 kg (103 lb 6.4 oz) 12/27/2011 10:45 AM PLATFORM LOADER Height - - Body Mass Index 18.61 06/09/2009 11:26 AM CDT documented in this encounter Progress Notes * Jna Doherty MD - 12/27/2011 11:02 AM CST SUBJECTIVE: Maricel Cardona is a 26 y.o. female here today for follow up - doing well. General ROS: healthy ENT ROS: denies headaches, [...] no TIA or stroke symptoms OBJECTIVE: BP 86/60 Wt 103 lb 6.4 oz (46.902 kg) SHEENT: Skin is warm and dry. Heart: Regular rate and rhythm. Lungs: Clear to auscultation bilaterally. Extremities: No edema. ASSESSMENT: Encounter Diagnosis Name Primary? ADD (attention deficit disorder) Yes PLAN: Orders Placed This Encounter ??? amphetamine-dextroamphetamine (ADDERALL) 10 MG tablet Si daily in the evening Dispense: 30 Tab Refill: 0 ??? lisdexamfetamine (VYVANSE) 40 MG capsule Sig: Take 1 Cap by mouth every morning. Dispense: 30 Cap Refill: 0 The patient indicates understanding of these issues and agrees with the plan. FORM LOADER documented in this encounter Plan of Treatment Not on file documented as of this encounter Visit Diagnoses Diagnosis ADD (attention deficit disorder)- Primary Attention deficit disorder without mention of hyperactivity documented in this encounter Care Teams Boat Driver Relationship Specialty Start Date End Date Jan Doherty MD [address] [address] PCP - General 06/08/09 documented as of this encounter
--- OUTSIDE RECORDS SUMMARY | 2024-11-05 18:39 | XMS_ITS | Encounter Summary ---
Author Organization [facility] Address [address] [place] [address] Care Team Providers Care Safety Fire Boss Name Role Phone Jan Doherty MD Primary Care Provider +1 -[phone] Reason for Visit * Reason Onset Date Comments MEDICATION REFILL 05/07/2011 Encounter Details Date Type Department Care Team (Late st Contact Info) Description 05/07/2011 Refill [facility] Medical [facility] - Internal Medicine [facility] [address] Jan Doherty MD [address] [address] MEDICATION REFILL Social History Tobacco [...] hyperactivity documented in this encounter Care Teams Safety Fire Boss Relationship Specialty Start Date End Date Jan Doherty MD [address] [address] PCP - General 06/08/09 documented as of this encounter
--- OUTSIDE RECORDS SUMMARY | 2024-11-05 18:39 | XMS_ITS | Encounter Summary ---
Author Organization [facility] Address [address] [facility] [place] [address] Care Team Providers Care Bindery Operator Name Role Phone Jan Doherty MD Primary Care Provider [phone] -[phone] Reason for Visit * Reason Onset Date Comments UTI 06/16/2013 Encounter Details Date Type Department Care Team (Late st Contact Info) Description 06/16/2013 Telephone [facility] Medical [facility] - Internal Medicine [address] [address] Jan Doherty MD [address] [address] UTI Social History Tobacco Use [...] Telephone Encounter - Jan Doherty MD - 06/16/2013 3:30 PM CDT cipro 500 bid for 7 * Telephone Encounter - Keya Garcia RN - 06/16/2013 1:55 PM CDT Pt's mother called. Pt has symptoms of UTI today. Has burning on urination, frequency and urgency. Would like an antibiotic. (allergy to Sulfa). documented in this encounter Plan of Treatment Not on file documented as of this encounter Visit Diagnoses Not on filedocumented in this encounter Care Teams Bindery Operator Relationship Specialty Start Date End Date Jan Doherty MD [address] [phone] PCP - General 06/08/09 documented as of this encounter
--- OUTSIDE RECORDS SUMMARY | 2024-11-05 18:39 | XMS_ITS | Encounter Summary ---
Author Organization [facility] Address [address] [place] [address] Care Team Providers Care Vat Skimmer Name Role Phone Jan Doherty MD Primary Care Provider +1 -[phone] Reason for Visit * Reason Onset Date Comments UTI 12/02/2010 Encounter Details Date Type Department Care Team (Late st Contact Info) Description 12/02/2010 Telephone [facility] Medical [facility] - Internal Medicine [address] [address] Jan Doherty MD [address] [address] UTI Social History Tobacco Use [...] Telephone Encounter - Keya Garcia RN - 12/02/2010 1:56 PM CST Called pt's mother and advised her that prescription she requested for daughter's UTI [facility] [place]. CLERK * Telephone Encounter - Jan Doherty MD - 12/02/2010 1:42 PM BELL CLERK cipro 500 bid for 7 days CLERK * Telephone Encounter - Keya Garcia RN - 12/02/2010 1:12 PM CST Pt's mother, Debbie calling for pt who has had symptoms of UTI with frequency, burning, odor to urine. Would like antibiotic sent to her pharmacy (allergy to Sulfa drugs). CLERK documented in this encounter Plan of Treatment Not on file documented as of this encounter Visit Diagnoses Not on filedocumented in this encounter Care Teams Vat Skimmer Relationship Specialty Start Date End Date Jan Doherty MD [address] [phone] PCP - General 06/08/09 documented as of this encounter
--- OUTSIDE RECORDS SUMMARY | 2024-11-05 18:39 | XMS_ITS | Encounter Summary ---
Author Organization [facility] Address [address] [facility] [place] [address] Care Team Providers Care Sheet Metal Worker Maintenance Name Role Phone Jan Doherty MD Primary Care Provider +1 -[phone] Reason for Visit * Reason Onset Date Comments MEDICATION REFILL 10/14/2013 Encounter Details Date Type Department Care Team (Late st Contact Info) Description 10/14/2013 Refill [facility] Medical [facility] - Internal Medicine [facility] [address] Jan Doherty MD [address] [address] MEDICATION REFILL Social History Tobacco [...] hyperactivity documented in this encounter Care Teams Sheet Metal Worker Maintenance Relationship Specialty Start Date End Date Jan Doherty MD [address] [address] PCP - General 06/08/09 documented as of this encounter
--- OUTSIDE RECORDS SUMMARY | 2024-11-05 18:39 | XMS_ITS | Encounter Summary ---
Author Organization [facility] Address [address] [facility] [place] [address] Care Team Providers Care Chronic Disease Epidemiologist Name Role Phone Jan Doherty MD Primary Care Provider +1 -[phone] Reason for Visit * Reason Onset Date Comments Results 07/18/2010 Encounter Details Date Type Department Care Team (Late st Contact Info) Description 07/18/2010 Telephone [facility] Medical [facility] - Internal Medicine [address] [address] Jan Doherty MD [address] [phone] Results Social History Tobacco Use Types Packs/Day Years Used Date Smoking Tobacco: Never Alcohol Use Standard Drinks/Week Comments Yes 0 (1 standard drink = 0.6 oz pur e alcohol) Sex and Gender Information Value Date Recorded Sex Assigned at Not on file Gender Identity Not on file Sexual Orientation Not on file documented as of this encounter Miscellaneous Notes * Telephone Encounter - Jannette Ramirez - 07/18/2010 9:09 AM CDT Received call from Lali at [facility], stating that she needed most recent lab results for this patient. Lab results faxed to . documented in this encounter Plan of Treatment Not on file documented as of this encounter Visit Diagnoses Not on filedocumented in this encounter Care Teams Chronic Disease Epidemiologist Relationship Specialty Start Date End Date Jan Doherty MD [address] [phone] PCP - General 06/08/09 documented as of this encounter
--- OUTSIDE RECORDS SUMMARY | 2024-11-05 18:39 | XMS_ITS | Encounter Summary ---
Author Organization [facility] Address [address] [facility] [place] [address] Care Team Providers Care Animal Nutrition Teacher Name Role Phone Jan Doherty MD Primary Care Provider +1 -[phone] Reason for Visit * Reason Onset Date Comments MEDICATION REFILL 08/23/2010 Encounter Details Date Type Department Care Team (Late st Contact Info) Description 08/23/2010 Refill [facility] Medical [facility] - Internal Medicine [facility] [phone] Kane Fuentes MD NEED INFORMATION UPDATED MEDICATION REFILL Social History Tobacco Use Types [...] hyperactivity documented in this encounter Care Teams Animal Nutrition Teacher Relationship Specialty Start Date End Date Jan Doherty MD [address] [facility] [address] [phone] PCP - General 06/08/09 documented as of this encounter
--- OUTSIDE RECORDS SUMMARY | 2024-11-05 18:39 | XMS_ITS | Encounter Summary ---
Author Organization [facility] Address [address] [place] [address] Care Team Providers Care Air Moving Technician Name Role Phone Jan Doherty MD Primary Care Provider +1 -[phone] Reason for Visit * Reason Onset Date Comments UTI 11/16/2009 Encounter Details Date Type Department Care Team (Late st Contact Info) Description 11/16/2009 Telephone [facility] Medical [facility] - Internal Medicine [address] [address] Jan Doherty MD [address] [address] UTI Social History Tobacco Use [...] Telephone Encounter - Keya Garcia RN - 11/16/2009 11:02 AM CST Called patient and advised her that doctor has ordered urine culture, she will go to [facility] to have it done. (order placed in system). LER * Telephone Encounter - Jan Doherty MD - 11/16/2009 10:56 AM SMELLER yes LER * Telephone Encounter - Keya Garcia RN - 11/16/2009 10:47 AM CST Pt called. Got a prescription for Cipro for UTI she had in September. Didn't take the medication theway she was supposed to (forgot to take it, took 2 wekks to finish the med) and symptoms never really went away. Wants to know if she should get a urine culture at [facility] and then be put on another antibiotic? LER documented in this encounter Plan of Treatment Not on file documented as of this encounter Procedures Procedure Name Priority Date/Time Associated Diagnosis Comments CULTURE URINE Routine 11/30/2009 10:22 AM SMELLER Uti (Urinary Tract Infection) documented in this encounter Results * CULTURE URINE (11/30/2009 10:22 AM SMELLER) Urine Culture Routine Final report [facility] ACCOUNT [...] CATCH PROCEDURE / Unknown 11/30/2009 10:22 AM SMELLER 11/30/2009 10:29 PM SMELLER Narrative Resulting Agency Comment [facility] [address] ??[facility] [phone] Jan Doherty MD LAB - MICROBIOLOG Y ORDERABLES Performing Organization Address City/State/[facility] Co de Phone Number [facility] ACCOUNT BILL documented in this encounter Visit Diagnoses Diagnosis UTI (urinary tract infection)- Primary Urinary tract infection, site not specified documented in this encounter Care Teams Air Moving Technician Relationship Specialty Start Date End Date Jan Doherty MD [address] [address] PCP - General 06/08/09 documented as of this encounter
--- OUTSIDE RECORDS SUMMARY | 2024-11-05 18:39 | XMS_ITS | Encounter Summary ---
Author Organization [facility] Address [address] [place] [address] Care Team Providers Care Homoeopath Name Role Phone Jan Doherty MD Primary Care Provider +1 -[phone] Reason for Visit * Reason Onset Date Comments MEDICATION REFILL 07/20/2014 Encounter Details Date Type Department Care Team (Late st Contact Info) Description 07/20/2014 Refill [facility] Medical [facility] - Internal Medicine [address] [address] Jan Doherty MD [address] [address] MEDICATION REFILL Social History Tobacco [...] * Telephone Encounter - Wendie Blue - 07/20/2014 1:03 PM CDT Requested Prescriptions Pending Prescriptions Disp Refills ??? amphetamine-dextroamphetamine (ADDERALL) 10 MG tablet 30 Tab 0 Si daily in the evening ??? lisdexamfetamine (VYVANSE) 50 MG capsule 30 Cap 0 Sig: Take 1 Cap by mouth every morning. Last ov 7-3-14 Next ov none Last fill 8-5-14 documented in this encounter Plan of Treatment Not on file documented as of this encounter Visit Diagnoses Diagnosis ADD (attention deficit disorder) Attention deficit disorder without mention of hyperactivity documented in this encounter Care Teams Homoeopath Relationship Specialty Start Date End Date Jan Doherty MD [address] [address] PCP - General 06/08/09 documented as of this encounter
--- OUTSIDE RECORDS SUMMARY | 2024-11-05 18:39 | XMS_ITS | Encounter Summary ---
Author Organization [facility] Address [address] [facility] [place] [address] Care Team Providers Care Utilization Coordinator Name Role Phone Jan Doherty MD Primary Care Provider +1 -[phone] Reason for Visit * Reason Onset Date Comments UTI 02/04/2011 Encounter Details Date Type Department Care Team (Late st Contact Info) Description 02/07/2011 Telephone [facility] Medical [facility] - Internal Medicine [address] [address] Jan Doherty MD [address] [phone] UTI Social History Tobacco Use [...] Telephone Encounter - Keya Garcia RN - 02/07/2011 2:59 PM CDT Called pt's mother, Lian and advised her that script for antibiotic has been sent to pt's pharmacy. * Telephone Encounter - Jan Doherty MD - 02/07/2011 2:50 PM CDT cipro 500 bid for 7 days * Telephone Encounter - Keya Garcia RN - 02/07/2011 2:48 PM CDT Pt's mother, Lian called. Pt has had a UTI for past 3 days. Frequency, urgency, pain on urination.Urine is cloudy with foul odor. Would like antibiotic sent to her pharmacy. documented in this encounter Plan of Treatment Not on file documented as of this encounter Visit Diagnoses Not on filedocumented in this encounter Care Teams Utilization Coordinator Relationship Specialty Start Date End Date Jan Doherty MD [address] [address] PCP - General 06/08/09 documented as of this encounter
--- OUTSIDE RECORDS SUMMARY | 2024-11-05 18:39 | XMS_ITS | Encounter Summary ---
Author Organization [facility] Address [address] [facility] [place] [address] Care Team Providers Care Welder Manufacture Name Role Phone Jan Doherty MD Primary Care Provider +1 -[phone] Reason for Visit * Reason Onset Date Comments MEDICATION REFILL 07/20/2013 Encounter Details Date Type Department Care Team (Late st Contact Info) Description 07/20/2013 Refill [facility] Medical [facility] - Internal Medicine [facility] [address] Jan Doherty MD [address] [address] MEDICATION REFILL Social History Tobacco [...] hyperactivity documented in this encounter Care Teams Welder Manufacture Relationship Specialty Start Date End Date Jan Doherty MD [address] [address] PCP - General 06/08/09 documented as of this encounter
--- OUTSIDE RECORDS SUMMARY | 2024-11-05 18:39 | XMS_ITS | Encounter Summary ---
Author Organization [facility] Address [address] [place] [address] Care Team Providers Care Security And Privacy Consultant Name Role Phone Jan Doherty MD Primary Care Provider +1 -[phone] Reason for Visit * Reason Onset Date Comments MEDICATION REFILL 03/29/2014 Encounter Details Date Type Department Care Team (Late st Contact Info) Description 03/29/2014 Refill [facility] - Internal Medicine [address] [address] Jan Doherty MD [address] [address] MEDICATION REFILL Social History Tobacco [...] * Telephone Encounter - Wendie Blue - 03/30/2014 9:09 AM CDT rx ready @ front * Telephone Encounter - Wendie Blue - 03/29/2014 3:55 PM CDT Requested Prescriptions Pending Prescriptions Disp Refills ??? lisdexamfetamine (VYVANSE) 50 MG capsule 30 Cap 0 Sig: Take 1 Cap by mouth every morning. ??? amphetamine-dextroamphetamine (ADDERALL) 10 MG tablet 30 Tab 0 Si daily in the evening Last ov 02-14-13 Next ov lm to schedule fu Last fill 02-24-14 (both) Pt will pick up operator on 03/30/14 documented in this encounter Plan of Treatment Not on file documented as of this encounter Visit Diagnoses Diagnosis ADD (attention deficit disorder)- Primary Attention deficit disorder without mention of hyperactivity documented in this encounter Care Teams Security And Privacy Consultant Relationship Specialty Start Date End Date Jan Doherty MD [address] [address] PCP - General 06/08/09 documented as of this encounter
--- OUTSIDE RECORDS SUMMARY | 2024-11-05 18:39 | XMS_ITS | Encounter Summary ---
Author Organization [facility] Address [address] [place] [address] Care Team Providers Care Associate Chief Nurse Name Role Phone Jan Doherty MD Primary Care Provider +1 -[phone] Reason for Visit * Reason Onset Date Comments MEDICATION REFILL 05/23/2015 Encounter Details Date Type Department Care Team (Late st Contact Info) Description 05/23/2015 Refill [facility] Medical [facility] - Internal Medicine [address] [place] [id number] Alfred Kendall MD [address] [place] [address] MEDICATION REFILL Social History Tobacco Use Types [...] on filedocumented in this encounter Care Teams Associate Chief Nurse Relationship Specialty Start Date End Date Jan Doherty MD [address] [facility] [address], [place] [phone] PCP - General 06/08/09 documented as of this encounter
--- OUTSIDE RECORDS SUMMARY | 2024-11-05 18:39 | XMS_ITS | Encounter Summary ---
Author Organization [facility] Address [address] [facility] [place] [address] Care Team Providers Care Utility Maintenance Worker Name Role Phone Jan Doherty MD Primary Care Provider +1 -[phone] Reason for Visit * Reason Onset Date Comments Update 10/11/2012 uti Encounter Details Date Type Department Care Team (Late st Contact Info) Description 10/11/2012 Telephone [facility] Medical [facility] - Internal Medicine [address] [address] Jan Doherty MD [address] [address] Update (uti) Social History Tobacco Use Types Packs/Day Years Used Date Smoking Tobacco: Never Alcohol Use Standard Drinks/Week Comments Yes 0 (1 standard drink = 0.6 oz pur e alcohol) Sex and Gender Information Value Date Recorded Sex Assigned at Not on file Gender Identity Not on file Sexual Orientation Not on file documented as of this encounter Miscellaneous Notes * Telephone Encounter - Keya Gracia RN - 10/11/2012 3:03 PM CST Called pt's mother and advised her that another prescription for antibiotic was sent to her pharmacy - also, Dr. Fuentes wants her to get a urine culture. Order placed into [facility] system. Will let pt know. LD CLEANER * Telephone Encounter - Kane Fuentes MD - 10/11/2012 2:14 PM CST Obtain culture. Restart cipro 500 mg bid for 7 days LD CLEANER * Telephone Encounter - Keya Garcia RN - 10/11/2012 1:49 PM CST Pt's mother calling to let doctor know that pt finished Cipro bid that was prescribed for 3 days last - prescribed to treat UTI. Symptoms went away, but are now returning again. Pt has flankpain, burning on urination, cloudy, foul smelling urine. Please advise. (allergy to Sulfa drugs) LD CLEANER documented in this encounter Plan of Treatment Scheduled Orders Name Type Priority Associated Diagnoses Orde r Schedule CULTURE URINE Microbiology Routine UTI (urinary tract infection) Ordered: 10/11/2012 documented as of this encounter Visit Diagnoses Diagnosis UTI (urinary tract infection)- Primary Urinary tract infection, site not specified documented in this encounter Care Teams Utility Maintenance Worker Relationship Specialty Start Date End Date Jan Doherty MD [address] [phone] PCP - General 06/08/09 documented as of this encounter
--- OUTSIDE RECORDS SUMMARY | 2024-11-05 18:39 | XMS_ITS | Encounter Summary ---
Author Organization [facility] Address [address] [facility] [place] [address] Care Team Providers Care Hot Baller Name Role Phone Jan Doherty MD Primary Care Provider +1 -[phone] Reason for Visit * Reason Onset Date Comments MEDICATION REFILL 04/26/2010 Encounter Details Date Type Department Care Team (Late st Contact Info) Description 04/26/2010 Refill [facility] Medical [facility] - Internal Medicine [address] [address] Jan Doherty MD [address] [address] MEDICATION REFILL Social History Tobacco [...] hyperactivity documented in this encounter Care Teams Hot Baller Relationship Specialty Start Date End Date Jan Doherty MD [address] [address] PCP - General 06/08/09 documented as of this encounter
--- OUTSIDE RECORDS SUMMARY | 2024-11-05 18:39 | XMS_ITS | Encounter Summary ---
Author Organization [facility] Address [address] [facility] [place] [address] Care Team Providers Care Gravel Weigher Name Role Phone Jan Doherty MD Primary Care Provider +1 -[phone] Reason for Visit * Reason Comments Refill Request Encounter Details Date Type Department Care Team (Late st Contact Info) Description 05/28/2015 Refill [facility] Medical [facility] - Internal Medicine [address] [place] [address] Jan Doherty MD [address] [address] Refill Request Social History Tobacco [...] on filedocumented in this encounter Care Teams Gravel Weigher Relationship Specialty Start Date End Date Jan Doherty MD [address] [address] PCP - General 06/08/09 documented as of this encounter
--- OUTSIDE RECORDS SUMMARY | 2024-11-05 18:39 | XMS_ITS | Encounter Summary ---
Author Organization [facility] Address [address] [place] [address] Care Team Providers Care Customer Support Analyst Name Role Phone Jan Doherty MD Primary Care Provider +1 -[phone] Reason for Visit * Reason Onset Date Comments MEDICATION REFILL 10/01/2011 Encounter Details Date Type Department Care Team (Late st Contact Info) Description 10/01/2011 Refill [facility] Medical [facility] - Internal Medicine [address] [address] Jan Doherty MD [address] [address] MEDICATION REFILL Social History Tobacco [...] encounter Miscellaneous Notes * Telephone Encounter - Sarita Davison MA - 10/01/2011 4:01 PM SKOOG MACHINE OPERATOR Adderall 30 mg and Vyvanse 40 mg prescriptions mailed per patient's request. Patient is aware prescription will not be picked by mail carrier and clerk until 10/06/11. Patient verbalized understanding and voiced no complaints. G MACHINE OPERATOR documented in this encounter Plan of Treatment Not on file documented as of this encounter Visit Diagnoses Diagnosis ADD (attention deficit disorder)- Primary Attention deficit disorder without mention of hyperactivity documented in this encounter Care Teams Customer Support Analyst Relationship Specialty Start Date End Date Jan Doherty MD [address] [address] PCP - General 06/08/09 documented as of this encounter
--- OUTSIDE RECORDS SUMMARY | 2024-11-05 18:39 | XMS_ITS | Encounter Summary ---
Author Organization [facility] Address [address] [facility] [place] [address] Care Team Providers Care Senior Game Developer Name Role Phone Jan Doherty MD Primary Care Provider +1 -[phone] Encounter Details Date Type Department Care Team (Late st Contact Info) Description 09/15/2009 Orders Only [facility] - Internal Medicine [address] [place] [address] Jan Doherty MD [address] [address] ADD (Attention Deficit Disorder) Social [...] documented in this encounter Care Teams Senior Game Developer Relationship Specialty Start Date End Date Jan Doherty MD [address] [address] PCP - General 06/08/09 documented as of this encounter
--- OUTSIDE RECORDS SUMMARY | 2024-11-05 18:39 | XMS_ITS | Encounter Summary ---
Author Organization [facility] Address [address] [facility] [place] [address] Care Team Providers Care Bitumen Plant Operator Name Role Phone Jan Doherty MD Primary Care Provider +1 -[phone] Reason for Visit * Reason Onset Date Comments UTI 05/17/2010 Encounter Details Date Type Department Care Team (Late st Contact Info) Description 05/17/2010 Telephone [facility] Medical [facility] - Internal Medicine [address] [address] Jan Doherty MD [address] [phone] UTI Social History Tobacco Use [...] Telephone Encounter - Keya Garcia RN - 05/17/2010 4:44 PM CDT Called patient's mother, Lian and advised her that script for antibiotics sent to pt's pharmacy. * Telephone Encounter - Jan Doherty MD - 05/17/2010 4:37 PM CDT Cipro for 7 * Telephone Encounter - Keya Garcia RN - 05/17/2010 3:47 PM CDT Pt's mother called. Pt has symptoms of UTI, burning on urination, frequency, urgency, cloudy urine.Can she get antibiotic called into her pharmacy? (Allergic to Sulfa). documented in this encounter Plan of Treatment Not on file documented as of this encounter Visit Diagnoses Not on filedocumented in this encounter Care Teams Bitumen Plant Operator Relationship Specialty Start Date End Date Jan Doherty MD [address] [phone] PCP - General 06/08/09 documented as of this encounter
--- OUTSIDE RECORDS SUMMARY | 2024-11-05 18:39 | XMS_ITS | Encounter Summary ---
Author Organization [facility] Address [address] [place] [address] Care Team Providers Care Sliver Machine Operator Name Role Phone Jan Doherty MD Primary Care Provider [phone] -[phone] Reason for Visit * Reason Onset Date Comments MEDICATION REFILL 01/12/2013 Encounter Details Date Type Department Care Team (Late st Contact Info) Description 01/12/2013 Refill [facility] Medical [facility] - Internal Medicine [address] [address] Jan Doherty MD [address] [address] MEDICATION REFILL Social History Tobacco [...] Telephone Encounter - Liliana Dash MA - 01/12/2013 11:39 AM MEDICAL RECORD TECHNICIAN Requested Prescriptions Pending Prescriptions Disp Refills ??? amphetamine-dextroamphetamine (ADDERALL) 10 MG tablet 30 Tab 0 Si daily in the evening ??? lisdexamfetamine (VYVANSE) 40 MG capsule 30 Cap 0 Sig: Take 1 Cap by mouth every morning. Last Filled:11/20/12 Last Visit:12/27/11 Future Visit:NONE CAL RECORD TECHNICIAN documented in this encounter Plan of Treatment Not on file documented as of this encounter Visit Diagnoses Diagnosis ADD (attention deficit disorder)- Primary Attention deficit disorder without mention of hyperactivity documented in this encounter Care Teams Sliver Machine Operator Relationship Specialty Start Date End Date Jan Doherty MD [address] [phone] PCP - General 06/08/09 documented as of this encounter
--- OUTSIDE RECORDS SUMMARY | 2024-11-05 18:39 | XMS_ITS | Encounter Summary ---
Author Organization [facility] Address [address] [facility] [place] [address] Care Team Providers Care Hearing Aide Technician Name Role Phone Jan Doherty MD Primary Care Provider +1 -[phone] Reason for Visit * Reason Onset Date Comments MEDICATION REFILL 05/19/2011 Encounter Details Date Type Department Care Team (Late st Contact Info) Description 05/19/2011 Refill [facility] Medical [facility] - Internal Medicine [facility] [address] Jan Doherty MD [address] [address] MEDICATION REFILL Social History Tobacco [...] hyperactivity documented in this encounter Care Teams Hearing Aide Technician Relationship Specialty Start Date End Date Jan Doherty MD [address] [address] PCP - General 06/08/09 documented as of this encounter
--- OUTSIDE RECORDS SUMMARY | 2024-11-05 18:39 | XMS_ITS | Encounter Summary ---
Author Organization [facility] Address [address] [facility] [place] [address] Care Team Providers Care Rug Sample Beveler Name Role Phone Jan Doherty MD Primary Care Provider +1 [phone] Reason for Visit * Reason Onset Date Comments UTI 07/07/2011 Encounter Details Date Type Department Care Team (Late st Contact Info) Description 07/07/2011 Telephone [facility] Medical [facility] - Internal Medicine [address] [address] Jan Doherty MD [address] [address] UTI Social History Tobacco Use [...] Telephone Encounter - Keya Garcia RN - 07/07/2011 4:33 PM CDT Called and left a detailed message for pt that prescription antibiotic has been sent to her pharmacy. * Telephone Encounter - Jan Doherty MD - 07/07/2011 4:05 PM CDT For 7 days * Telephone Encounter - Keya Garcia RN - 07/07/2011 2:48 PM CDT Pt's mother, Lian Banegas called. States pt has a UTI. Frequency, burning on urination, urgency, urine cloudy with a foul odor. Would like a script for Cipro sent to her pharmacy. 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
--- OUTSIDE RECORDS SUMMARY | 2024-11-05 18:39 | XMS_ITS | Encounter Summary ---
Author Organization [facility] Address [address] [place] [address] Care Team Providers Care Correspondence School Instructor Name Role Phone Jan Doherty MD Primary Care Provider +1 -[phone] Reason for Visit * Reason Onset Date Comments MEDICATION REFILL 04/22/2013 Encounter Details Date Type Department Care Team (Late st Contact Info) Description 04/22/2013 Refill [facility] Medical [facility] - Internal Medicine [address] [address] Jan Doherty MD [address] [address] MEDICATION REFILL Social History Tobacco [...] Telephone Encounter - Liliana Dash MA - 04/22/2013 3:05 PM CDT Requested Prescriptions Pending Prescriptions Disp Refills ??? lisdexamfetamine (VYVANSE) 50 MG capsule 30 Cap 0 Sig: Take 1 Cap by mouth every morning. ??? amphetamine-dextroamphetamine (ADDERALL) 10 MG tablet 30 Tab 0 Si daily in the evening documented in this encounter Plan of Treatment Not on file documented as of this encounter Visit Diagnoses Diagnosis ADD (attention deficit disorder)- Primary Attention deficit disorder without mention of hyperactivity documented in this encounter Care Teams Correspondence School Instructor Relationship Specialty Start Date End Date Jan Doherty MD [address] [phone] PCP - General 06/08/09 documented as of this encounter
--- OUTSIDE RECORDS SUMMARY | 2024-11-05 18:39 | XMS_ITS | Encounter Summary ---
Author Organization [facility] Address [address] [facility] [place] [address] Care Team Providers Care Toe Trimmer Name Role Phone Jan Doherty MD Primary Care Provider +1 -[phone] Reason for Visit * Reason Onset Date Comments MEDICATION REFILL 02/13/2012 Encounter Details Date Type Department Care Team (Late st Contact Info) Description 02/13/2012 Refill [facility] Medical [facility] - Internal Medicine [facility] [address] Jan Doherty MD [address] [address] MEDICATION REFILL Social History Tobacco [...] hyperactivity documented in this encounter Care Teams Toe Trimmer Relationship Specialty Start Date End Date Jan Doherty MD [address] [address] PCP - General 06/08/09 documented as of this encounter
--- OUTSIDE RECORDS SUMMARY | 2024-11-05 18:39 | XMS_ITS | Encounter Summary ---
Author Organization [facility] Address [address] [facility] [place] [address] Care Team Providers Care Compliance Program Manager Name Role Phone Jan Doherty MD Primary Care Provider +1 -[phone] Reason for Visit * Reason Onset Date Comments MEDICATION REFILL 03/25/2012 Encounter Details Date Type Department Care Team (Late st Contact Info) Description 03/25/2012 Refill [facility] Medical [facility] - Internal Medicine [facility] [address] [address] Jan Doherty MD [address] [address] MEDICATION REFILL Social History Tobacco [...] hyperactivity documented in this encounter Care Teams Compliance Program Manager Relationship Specialty Start Date End Date Jan Doherty MD [address] [address] PCP - General 06/08/09 documented as of this encounter
--- OUTSIDE RECORDS SUMMARY | 2024-11-05 18:39 | XMS_ITS | Encounter Summary ---
Author Organization [facility] Address [address] [facility] [place] [address] Care Team Providers Care Public Policy Coordinator Name Role Phone Jan Doherty MD Primary Care Provider +1 -[phone] Reason for Visit * Reason Onset Date Comments Medication Problem 05/15/2014 Encounter Details Date Type Department Care Team (Late st Contact Info) Description 05/15/2014 Telephone [facility] Medical [facility] - Internal Medicine [address] [address] Jan Doherty MD [address] [address] Medication Problem Social History Tobacco Use Types Packs/Day Years [...] Telephone Encounter - Sahra Rodriguez MA - 05/18/2014 8:48 AM CDT Received fax from [employer] Patient Assistance Program, pt is eligible to receive free Vyvanse through 05/17/2015. According to faxed letter, pt is being mailed a [employer] Card to be used at [facility] * Telephone Encounter - Sahra Rodriguez MA - 05/15/2014 4:32 PM CDT Pt called regarding this medicatiopn Called pt's pharmacy and asked if this needed a prior auth, I was told that they were not sure since they had not run the prescription yet. I was put on hold and after a short wait, I was informed that the medication does need a PA. As the pharmacy never processed this rx, this would explain why wecharlotte got a fax from the pharmacy stating that this needs a PA Called the [place] PA line 4 times and each time the automated system said there was an unusually high call volume and that I would have to call back later, was not given an option to leave msg and prompt said VM box was full Went online to get PA, could not initiate online. I printed form from www.[email or web address].gov and completed, marked form as URGENT so it can be processed faster. Added note to form that I tried to getthis over the phone and was unable to. Pt called while I was faxing form and spoke to Wendie. Wendie asked me if I knew anything about aform for pt to get medication for free. I let her know that if there was a form of that nature it would be completed by pt/PCP/Patient Assistance company that would provide drug. Free medication forms are not completed by refill/prior auth dept and has nothing to do with the prior auth itself. Informed Wendie that I have initiated PA via fax as I was unable to initiate via telephone. Pt will need to contact pt assistance company or whoever she needs to contact regarding free medications (As documented this has nothing to do with the PA and is not completed by refill or prior auth dept) and Iwill notify pharmacy when Vyvanse is approved. I tried to call ext [phone] but it said the call could not be completed as dialed, so I am sending this to you as an FYI :) documented in this encounter Plan of Treatment Not on file documented as of this encounter Visit Diagnoses Not on filedocumented in this encounter Care Teams Public Policy Coordinator Relationship Specialty Start Date End Date Jan Doherty MD [address] [address] PCP - General 06/08/09 documented as of this encounter
--- OUTSIDE RECORDS SUMMARY | 2024-11-05 18:39 | XMS_ITS | Encounter Summary ---
Author Organization [facility] Address [address] [facility] [place] [address] Care Team Providers Care Web Communications Specialist Name Role Phone Jan Doherty MD Primary Care Provider +1 -[phone] Reason for Visit * Reason Onset Date Comments MEDICATION REFILL 02/10/2011 Encounter Details Date Type Department Care Team (Late st Contact Info) Description 02/10/2011 Refill [facility] Medical [facility] - Internal Medicine [facility] [address] Jan Doherty MD [address] [address] MEDICATION REFILL Social History Tobacco [...] hyperactivity documented in this encounter Care Teams Web Communications Specialist Relationship Specialty Start Date End Date Jan Doherty MD [address] [address] PCP - General 06/08/09 documented as of this encounter
--- OUTSIDE RECORDS SUMMARY | 2024-11-05 18:39 | XMS_ITS | Encounter Summary ---
Author Organization [facility] Address [address] [place] [address] Care Team Providers Care Horse Breeder Name Role Phone Jan Doherty MD Primary Care Provider [phone] -[phone] Reason for Visit * Reason Onset Date Comments MEDICATION REFILL 04/23/2015 Encounter Details Date Type Department Care Team (Late st Contact Info) Description 04/23/2015 Refill [facility] Medical [facility] - Internal Medicine [address] [address] Jan Doherty MD [address] [address] MEDICATION REFILL Social History [...] Telephone Encounter - Rebecca Hawk MA - 04/25/2015 11:17 AM CDT Pt came in to get pt assistance program forms filled out. And to pear picker her script. documented in this encounter Plan of Treatment Not on file documented as of this encounter Visit Diagnoses Diagnosis ADD (attention deficit disorder)- Primary Attention deficit disorder without mention of hyperactivity documented in this encounter Care Teams Horse Breeder Relationship Specialty Start Date End Date Jan Doherty MD [address] [address] PCP - General 06/08/09 documented as of this encounter
--- OUTSIDE RECORDS SUMMARY | 2024-11-05 18:39 | XMS_ITS | Encounter Summary ---
Author Organization [facility] Address [address] [facility] [place] [address] Care Team Providers Care Party Plan Sales Director Name Role Phone Jan Doherty MD Primary Care Provider +1 -[phone] Reason for Visit * Reason Onset Date Comments MEDICATION REFILL 02/01/2015 Encounter Details Date Type Department Care Team (Late st Contact Info) Description 02/01/2015 Refill [facility] Medical [facility] - Internal Medicine [address] [address] Jan Doherty MD [address] [address] MEDICATION REFILL Social History Tobacco [...] hyperactivity documented in this encounter Care Teams Party Plan Sales Director Relationship Specialty Start Date End Date Jan Doherty MD [address] [address] PCP - General 06/08/09 documented as of this encounter
--- OUTSIDE RECORDS SUMMARY | 2024-11-05 18:39 | XMS_ITS | Encounter Summary ---
Author Organization [facility] Address [address] [facility] [place] [address] Care Team Providers Care Buffer Copper Name Role Phone Jan Doherty MD Primary Care Provider +1 -[phone] Reason for Visit * Reason Onset Date Comments MEDICATION REFILL 08/26/2011 Encounter Details Date Type Department Care Team (Late st Contact Info) Description 08/26/2011 [facility] - Internal Medicine [facility] [address] Jan Doherty MD [address] [address] MEDICATION REFILL Social History Tobacco [...] hyperactivity documented in this encounter Care Teams Buffer Copper Relationship Specialty Start Date End Date Jan Doherty MD [address] [address] PCP - General 06/08/09 documented as of this encounter
--- OUTSIDE RECORDS SUMMARY | 2024-11-05 18:39 | XMS_ITS | Encounter Summary ---
Author Organization [facility] Address [address] [place] [address] Care Team Providers Care Funeral Home Director Name Role Phone Silas Fallon MD Primary Care Provider [phone] -[phone] Reason for Visit * Reason Onset Date Comments MEDICATION REFILL 08/14/2014 Encounter Details Date Type Department Care Team (Late st Contact Info) Description 08/14/2014 Refill [facility] Medical [facility] - Internal Medicine [address] [address] Silas Fallon MD [address] [address] MEDICATION REFILL Social History Tobacco [...] Telephone Encounter - Sahra Rodriguez MA - 08/15/2014 10:45 AM CDT Requested Prescriptions Signed Prescriptions Disp Refills ??? amphetamine-dextroamphetamine (ADDERALL) 10 MG tablet 30 Tab 0 Si daily in the evening Authorizing Provider: SILAS FALLON ??? lisdexamfetamine (VYVANSE) 50 MG capsule 30 Cap 0 Sig: Take 1 Cap by mouth every morning. Authorizing Provider: SILAS FALLON Called and left detailed VM on pt's cell phone answering machine informing that rx is available forpick up at her convenience. Marked message for urgent delivery to pt * Telephone Encounter - Rebecca Hawk MA - 08/14/2014 2:24 PM CDT Last filled 07/20/2014 documented in this encounter Plan of Treatment Not on file documented as of this encounter Visit Diagnoses Diagnosis ADD (attention deficit disorder) Attention deficit disorder without mention of hyperactivity documented in this encounter Care Teams Funeral Home Director Relationship Specialty Start Date End Date Silas Fallon MD [address] [phone] PCP - General 06/08/09 documented as of this encounter
--- OUTSIDE RECORDS SUMMARY | 2024-11-05 18:39 | XMS_ITS | Encounter Summary ---
Author Organization [facility] Address [address] [place] [address] Care Team Providers Care Valet Cashier Name Role Phone Jan Doherty MD Primary Care Provider [phone] -[phone] Reason for Visit * Reason Onset Date Comments MEDICATION REFILL 03/16/2013 Encounter Details Date Type Department Care Team (Late st Contact Info) Description 03/16/2013 Refill [facility] Medical [facility] - Internal Medicine [address] [address] Jan Doherty MD [address] [address] MEDICATION REFILL Social History Tobacco [...] Telephone Encounter - Liliana Dash MA - 03/16/2013 11:58 AM CDT Requested Prescriptions Pending Prescriptions Disp Refills ??? lisdexamfetamine (VYVANSE) 50 MG capsule 30 Cap 0 Sig: Take 1 Cap by mouth every morning. documented in this encounter Plan of Treatment Not on file documented as of this encounter Visit Diagnoses Diagnosis ADD (attention deficit disorder)- Primary Attention deficit disorder without mention of hyperactivity documented in this encounter Care Teams Valet Cashier Relationship Specialty Start Date End Date Jan Doherty MD [address] [address] PCP - General 06/08/09 documented as of this encounter
--- OUTSIDE RECORDS SUMMARY | 2024-11-05 18:39 | XMS_ITS | Encounter Summary ---
Author Organization [facility] Address [address] [place] [address] Care Team Providers Care Humid System Operator Name Role Phone Jan Doherty MD Primary Care Provider +1 -[phone] Reason for Visit * Reason Onset Date Comments MEDICATION REFILL 09/29/2014 Encounter Details Date Type Department Care Team (Late st Contact Info) Description 09/29/2014 Refill [facility] Medical [facility] - Internal Medicine [address] [address] Jan Doherty MD [address] [address] MEDICATION REFILL Social History Tobacco [...] Telephone Encounter - Rebecca Hawk MA - 09/29/2014 11:24 AM CST Tried calling pt. NFIELD PROGRAM COORDINATOR * Telephone Encounter - Rebecca Hawk MA - 09/29/2014 9:30 AM CST Last filled 08/14/2014 Last here 05/11/2014 NFIELD PROGRAM COORDINATOR documented in this encounter Plan of Treatment Not on file documented as of this encounter Visit Diagnoses Diagnosis ADD (attention deficit disorder) Attention deficit disorder without mention of hyperactivity documented in this encounter Care Teams Humid System Operator Relationship Specialty Start Date End Date Jan Doherty MD [address] [phone] PCP - General 06/08/09 documented as of this encounter
--- OUTSIDE RECORDS SUMMARY | 2024-11-05 18:39 | XMS_ITS | Encounter Summary ---
Author Organization [facility] Address [address] [facility] [place] [address] Care Team Providers Care Lorry Weigher Name Role Phone Jan Doherty MD Primary Care Provider [phone] -[phone] Reason for Visit * Reason Onset Date Comments UTI 12/29/2012 Encounter Details Date Type Department Care Team (Late st Contact Info) Description 12/29/2012 Telephone [facility] Medical [facility] - Internal Medicine [address] [address] Jan Doherty MD [address] [address] UTI Social History Tobacco Use [...] Telephone Encounter - Keya Garcia RN - 12/29/2012 1:03 PM CST Called pt's mother and advised her that prescription she requested has been sent to her pharmacy. KER AND COOKIE MACHINE OPERATOR * Telephone Encounter - Jan Doherty MD - 12/29/2012 11:41 AM CRACKER AND COOKIE MACHINE OPERATOR cipro for 7 KER AND COOKIE MACHINE OPERATOR * Telephone Encounter - Keya Garcia RN - 12/29/2012 10:44 AM CST Pt's mother called. Pt has had UTI symptoms past 24 hours. Burning on urination, frequency, urgency, foul odor to urine. Would like prescription antibiotic. KER AND COOKIE MACHINE OPERATOR documented in this encounter Plan of Treatment Not on file documented as of this encounter Visit Diagnoses Not on filedocumented in this encounter Care Teams Lorry Weigher Relationship Specialty Start Date End Date Jan Doherty MD [address] [address] PCP - General 06/08/09 documented as of this encounter
--- OUTSIDE RECORDS SUMMARY | 2024-11-05 18:39 | XMS_ITS | Encounter Summary ---
Author Organization [facility] Address [address] [facility] [address] Care Team Providers Care [employer] Lieutenant Name Role Phone Jan Doherty MD Primary Care Provider +1 -[phone] Reason for Visit * Reason Onset Date Comments MEDICATION REFILL 07/05/2015 Encounter Details Date Type Department Care Team (Late st Contact Info) Description 07/05/2015 Refill [facility] Medical [facility] - Internal Medicine [address] [address] Jan Doherty MD [address] [address] MEDICATION REFILL Social History Tobacco [...] on filedocumented in this encounter Care Teams [employer] Lieutenant Relationship Specialty Start Date End Date Jan Doherty MD [address] [address] PCP - General 06/08/09 documented as of this encounter
--- OUTSIDE RECORDS SUMMARY | 2024-11-05 18:39 | XMS_ITS | Encounter Summary ---
Author Organization [facility] Address [address] [place] [address] Care Team Providers Care Waiter/Waitress Bar Name Role Phone Jan Doherty MD Primary Care Provider +1 -[phone] Reason for Visit * Reason Onset Date Comments MEDICATION REFILL 06/13/2014 Encounter Details Date Type Department Care Team (Late st Contact Info) Description 06/13/2014 Refill [facility] Medical Group - Internal Medicine [address] [address] Jan Doherty MD [address] [address] MEDICATION REFILL Social History Tobacco [...] Telephone Encounter - Rebecca Hawk MA - 07/19/2014 9:10 AM CDT reprint * Telephone Encounter - Rebecca Hawk MA - 06/13/2014 1:21 PM CDT Last filled 05/08/2014 Last here 05/11/2014 documented in this encounter Plan of Treatment Not on file documented as of this encounter Visit Diagnoses Diagnosis ADD (attention deficit disorder) Attention deficit disorder without mention of hyperactivity documented in this encounter Care Teams Waiter/Waitress Bar Relationship Specialty Start Date End Date Jan Doherty MD [address] [phone] PCP - General 06/08/09 documented as of this encounter
--- OUTSIDE RECORDS SUMMARY | 2024-11-05 18:39 | XMS_ITS | Encounter Summary ---
Author Organization [facility] Address [address] [place] [address] Care Team Providers Care Answering Service Telephone Operator Name Role Phone Silas Fallon MD Primary Care Provider +1 -[phone] Reason for Visit * Reason Onset Date Comments MEDICATION REFILL 02/24/2014 Encounter Details Date Type Department Care Team (Late st Contact Info) Description 02/24/2014 Refill [facility] Medical [facility] - Internal Medicine [address] [address] Silas Fallon MD [address] [address] MEDICATION REFILL Social History Tobacco [...] encounter Miscellaneous Notes * Telephone Encounter - Vicente Goodrich MA - 02/24/2014 2:52 PM CDT Requested Prescriptions Signed Prescriptions Disp Refills ??? amphetamine-dextroamphetamine (ADDERALL) 10 MG tablet 30 Tab 0 Si daily in the evening Authorizing Provider: SILAS FALLON Ordering User: VICENTE GOODRICH ??? lisdexamfetamine (VYVANSE) 50 MG capsule 30 Cap 0 Sig: Take 1 Cap by mouth every morning. Authorizing Provider: SILAS FALLON Ordering User: VICENTE GOODRICH documented in this encounter Plan of Treatment Not on file documented as of this encounter Visit Diagnoses Diagnosis ADD (attention deficit disorder)- Primary Attention deficit disorder without mention of hyperactivity documented in this encounter Care Teams Answering Service Telephone Operator Relationship Specialty Start Date End Date Silas Fallon MD [address] [address] PCP - General 06/08/09 documented as of this encounter
--- OUTSIDE RECORDS SUMMARY | 2024-11-05 18:39 | XMS_ITS | Encounter Summary ---
Author Organization [facility] Address [address] [place] [address] Care Team Providers Care Sewer Tapper Name Role Phone Jan Doherty MD Primary Care Provider [phone] Reason for Visit * Reason Onset Date Comments UTI 09/09/2011 Encounter Details Date Type Department Care Team (Late st Contact Info) Description 09/09/2011 Telephone [facility] Medical [facility] - Internal Medicine [address] [address] Jan Doherty MD [address] [address] UTI Social History Tobacco Use [...] Telephone Encounter - Keya Garcia RN - 09/09/2011 11:09 AM CDT Called pt's mother and advised her that prescription for Cipro has been sent to her pharmacy. * Telephone Encounter - Kane Fuentes MD - 09/09/2011 10:55 AM CDT 250 mg #6 one bid * Telephone Encounter - Keya Garcia RN - 09/09/2011 9:27 AM CDT Mother of pt of Dr. Doherty's calling. Pt has UTI symptoms this morning. Frequency, burning, urgency. Urine has a foul odor. Wants to know if she can get prescription for Cipro sent to her pharmacy. (allergy to Sulfa). documented in this encounter Plan of Treatment Not on file documented as of this encounter Visit Diagnoses Not on filedocumented in this encounter Care Teams Sewer Tapper Relationship Specialty Start Date End Date Jan Doherty MD [address] [id number] PCP - General 06/08/09 documented as of this encounter
--- OUTSIDE RECORDS SUMMARY | 2024-11-05 18:39 | XMS_ITS | Encounter Summary ---
Author Organization [facility] Address [address] [place] [address] Care Team Providers Care Utilization Review Nurse Name Role Phone Jan Doherty MD Primary Care Provider [phone] [phone] Reason for Visit * Reason Onset Date Comments MEDICATION REFILL 10/31/2014 Encounter Details Date Type Department Care Team (Late st Contact Info) Description 10/31/2014 Refill [facility] - Internal Medicine [address] [address] Jan Doherty MD [address] [id number] MEDICATION REFILL Social History Tobacco [...] Telephone Encounter - Rebecca Hawk MA - 10/31/2014 10:58 AM CST Informed Pt DIE MAKER * Telephone Encounter - Rebecca Hawk MA - 10/31/2014 9:36 AM CST Last filled 09/29/2014 DIE MAKER documented in this encounter Plan of Treatment Not on file documented as of this encounter Visit Diagnoses Diagnosis ADD (attention deficit disorder)- Primary Attention deficit disorder without mention of hyperactivity documented in this encounter Care Teams Utilization Review Nurse Relationship Specialty Start Date End Date Jan Doherty MD [address] [id number] PCP - General 06/08/09 documented as of this encounter
--- OUTSIDE RECORDS SUMMARY | 2024-11-05 18:39 | XMS_ITS | Encounter Summary ---
Author Organization [facility] Address [address] [facility] [place] [address] Care Team Providers Care Personal Injury Law Specialist Name Role Phone Jan Doherty MD Primary Care Provider [phone] [phone] Reason for Visit * Reason Onset Date Comments MEDICATION REFILL 09/24/2012 Encounter Details Date Type Department Care Team (Late st Contact Info) Description 09/24/2012 Refill [facility] Medical [facility] - Internal Medicine [facility] [address] Jan Doherty MD [address] [address] MEDICATION REFILL Social History Tobacco [...] hyperactivity documented in this encounter Care Teams Personal Injury Law Specialist Relationship Specialty Start Date End Date Jan Doherty MD [address] [phone] PCP - General 06/08/09 documented as of this encounter
--- OUTSIDE RECORDS SUMMARY | 2024-11-05 18:39 | XMS_ITS | Encounter Summary ---
Author Organization [facility] Address [address] [facility] [place] [address] Care Team Providers Care Lean Six Sigma Black Belt Name Role Phone Jan Doherty MD Primary Care Provider [phone] [phone] Reason for Visit * Reason Onset Date Comments MEDICATION REFILL 06/01/2015 Encounter Details Date Type Department Care Team (Late st Contact Info) Description 06/01/[address] [facility] Medical [facility] - Internal Medicine [facility] [address] Jan Doherty MD [address] [address] MEDICATION REFILL Social History Tobacco [...] hyperactivity documented in this encounter Care Teams Lean Six Sigma Black Belt Relationship Specialty Start Date End Date Jan Doherty MD [address] [address] PCP - General 06/08/09 documented as of this encounter
--- OUTSIDE RECORDS SUMMARY | 2024-11-05 18:39 | XMS_ITS | Encounter Summary ---
Author Organization [facility] Address [address] [place] [address] Care Team Providers Care Wash Oil Pump Operator Helper Name Role Phone Silas Fallon MD Primary Care Provider [phone] [phone] Reason for Visit * Reason Onset Date Comments MEDICATION REFILL 03/22/2014 Encounter Details Date Type Department Care Team (Late st Contact Info) Description 03/22/2014 Refill [facility] Medical [facility] - Internal Medicine [address] [address] Silas Fallon MD [address] [phone] MEDICATION REFILL Social History Tobacco [...] Telephone Encounter - Sahra Boyle MA - 03/22/2014 8:35 AM CDT Requested Prescriptions Signed Prescriptions Disp Refills ??? acyclovir (ZOVIRAX) 200 MG capsule 60 Cap 0 Sig: Take 1 Cap by mouth 2 times daily. APPOINTMENT WAS DUE 02/2014, SCHEDULE APPOINTMENT FOR FURTHER REFILLS Authorizing Provider: SILAS FALLON Ordering User: SAHRA BOYLE Received call from a new pharmacy for pt, Qnary. Rx was E-prescribed to a [facility] for 1 monthw/1 refill on 03/06/14. [facility] to cancel the additional approved refill as the pt wants this rx sent to an alternate pharmacy. Pt is overdue for appt and note was added that she needs to schedule for further refills documented in this encounter Plan of Treatment Not on file documented as of this encounter Visit Diagnoses Not on filedocumented in this encounter Care Teams Wash Oil Pump Operator Helper Relationship Specialty Start Date End Date Silas Fallon MD [address] [address] PCP - General 06/08/09 documented as of this encounter
--- OUTSIDE RECORDS SUMMARY | 2024-11-05 18:39 | XMS_ITS | Encounter Summary ---
Author Organization [facility] Address [address] [place] [address] Care Team Providers Care Fund Controller Name Role Phone Jan Doherty MD Primary Care Provider [phone] [phone] Reason for Visit * Reason Onset Date Comments MEDICATION REFILL 05/08/2014 Encounter Details Date Type Department Care Team (Late st Contact Info) Description 05/08/2014 Refill [facility] Medical [facility] - Internal Medicine [address] [address] Jan Doherty MD [address] [address] MEDICATION REFILL Social History [...] * Telephone Encounter - Wendie Blue - 05/08/2014 4:10 PM CDT Requested Prescriptions Pending Prescriptions Disp Refills ??? amphetamine-dextroamphetamine (ADDERALL) 10 MG tablet 30 Tab 0 Si daily in the evening ??? lisdexamfetamine (VYVANSE) 50 MG capsule 30 Cap 0 Sig: Take 1 Cap by mouth every morning. ??? acyclovir (ZOVIRAX) 200 MG capsule 60 Cap 0 Sig: Take 1 Cap by mouth 2 times daily. APPOINTMENT WAS DUE 02/2014, SCHEDULE APPOINTMENT FOR FURTHER REFILLS Last ov 02-14-13 Next ov 05-11-14 Last fill 03-29-14 documented in this encounter Plan of Treatment Not on file documented as of this encounter Visit Diagnoses Diagnosis ADD (attention deficit disorder) Attention deficit disorder without mention of hyperactivity documented in this encounter Care Teams Fund Controller Relationship Specialty Start Date End Date Jan Doherty MD [address] [address] PCP - General 06/08/09 documented as of this encounter
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
--- OUTSIDE RECORDS SUMMARY | 2024-11-05 18:39 | XMS_ITS | Encounter Summary ---
Author Organization [facility] Address [address] [facility] [place] [address] Care Team Providers Care Frame Feeder Name Role Phone Jan Doherty MD Primary Care Provider [phone] [phone] Reason for Visit * Reason Onset Date Comments UTI 09/04/2010 Encounter Details Date Type Department Care Team (Late st Contact Info) Description 09/04/2010 Telephone [facility] Medical [facility] - Internal Medicine [address] [address] Jan Doherty MD [address] [address] UTI Social History Tobacco Use [...] Telephone Encounter - Keya Garcia RN - 09/04/2010 1:39 PM CDT Called and let pt's mother know that script for antibiotic has been sent to pt's pharmacy. * Telephone Encounter - Jan Doherty MD - 09/04/2010 1:15 PM CDT cipro 500 bid for 7 days * Telephone Encounter - Keya Garcia RN - 09/04/2010 12:04 PM CDT Pt's mother, Debbie calling for pt. Has had symptoms of a UTI past few days, frequency and burning on urination, urgency, urine cloudy with a foul odor - would like antibiotic sent to her pharmacy. (allergy to Sulfa drugs). documented in this encounter Plan of Treatment Not on file documented as of this encounter Visit Diagnoses Not on filedocumented in this encounter Care Teams Frame Feeder Relationship Specialty Start Date End Date Jan Doherty MD [address] [phone] PCP - General 06/08/09 documented as of this encounter
--- OUTSIDE RECORDS SUMMARY | 2024-11-05 18:39 | XMS_ITS | Encounter Summary ---
Author Organization [facility] Address [address] [facility] [place] [address] Care Team Providers Care Health Science Writer Name Role Phone Jan Doherty MD Primary Care Provider [phone] [phone] Reason for Visit * Reason Onset Date Comments MEDICATION REFILL 08/12/2012 Encounter Details Date Type Department Care Team (Late st Contact Info) Description 08/12/2012 Refill [facility] Medical [facility] - Internal Medicine [facility] [address] Jan Doherty MD [address] [address] MEDICATION REFILL Social History Tobacco [...] hyperactivity documented in this encounter Care Teams Health Science Writer Relationship Specialty Start Date End Date Jan Doherty MD [address] [address] PCP - General 06/08/09 documented as of this encounter
--- OUTSIDE RECORDS SUMMARY | 2024-11-05 18:39 | XMS_ITS | Encounter Summary ---
Author Organization [facility] Address [address] [place] [address] Care Team Providers Care Humanities Department Chair Name Role Phone Jan Doherty MD Primary Care Provider [phone] [phone] Reason for Visit * Reason Onset Date Comments MEDICATION REFILL 09/05/2013 Encounter Details Date Type Department Care Team (Late st Contact Info) Description 09/05/2013 Refill [facility] Medical Group - Internal Medicine [address] [address] Jan Doherty MD [address] [address] MEDICATION REFILL Social History [...] Telephone Encounter - Rebecca Hawk MA - 09/05/2013 2:42 PM CDT Pt will greens picker 09/06/2013 documented in this encounter Plan of Treatment Not on file documented as of this encounter Visit Diagnoses Diagnosis ADD (attention deficit disorder)- Primary Attention deficit disorder without mention of hyperactivity documented in this encounter Care Teams Humanities Department Chair Relationship Specialty Start Date End Date Jan Doherty MD [address] [phone] PCP - General 06/08/09 documented as of this encounter
--- OUTSIDE RECORDS SUMMARY | 2024-11-05 18:39 | XMS_ITS | Encounter Summary ---
Author Organization [facility] Address [address] [place] [address] Care Team Providers Care Heating Plant Superintendent Name Role Phone Jan Doherty MD Primary Care Provider [phone] [phone] Reason for Visit * Reason Onset Date Comments UTI 11/30/2014 Encounter Details Date Type Department Care Team (Late st Contact Info) Description 11/30/2014 Telephone [facility] Medical [facility] - Internal Medicine [address] [address] Jan Doherty MD [address] [address] UTI Social History Tobacco [...] Telephone Encounter - Jan Doherty MD - 11/30/2014 2:21 PM WIRE WINDER cipro 500 bid for 7 days WINDER * Telephone Encounter - Makayla Arango RN - 11/30/2014 1:35 PM WIRE WINDER She has frequency, urgency, burning and cloudy urine WINDER documented in this encounter Plan of Treatment Not on file documented as of this encounter Visit Diagnoses Not on filedocumented in this encounter Care Teams Heating Plant Superintendent Relationship Specialty Start Date End Date Jan Doherty MD [address] [address] PCP - General 06/08/09 documented as of this encounter
--- OUTSIDE RECORDS SUMMARY | 2024-11-05 18:39 | XMS_ITS | Encounter Summary ---
Author Organization [facility] Address [address] [facility] [place] [address] Care Team Providers Care Interpreter Deaf Name Role Phone Jan Doherty MD Primary Care Provider [phone] [phone] Reason for Visit * Reason Onset Date Comments MEDICATION REFILL 10/25/2012 Encounter Details Date Type Department Care Team (Late st Contact Info) Description 10/25/2012 Refill [facility] Medical [facility] - Internal Medicine [facility] [address] [address] Jan Doherty MD [address] [address] MEDICATION REFILL Social History Tobacco [...] hyperactivity documented in this encounter Care Teams Interpreter Deaf Relationship Specialty Start Date End Date Jan Doherty MD [address] [address] PCP - General 06/08/09 documented as of this encounter
--- OUTSIDE RECORDS SUMMARY | 2024-11-05 18:39 | XMS_ITS | Encounter Summary ---
Author Organization [facility] Address [address] [facility] [place] [address] Care Team Providers Care Membership Sales Representative Name Role Phone Jan Doherty MD Primary Care Provider [phone] [phone] Reason for Visit * Reason Onset Date Comments Results 07/19/2010 labs from March, 010 Encounter Details Date Type Department Care Team (Late st Contact Info) Description 07/19/2010 Telephone [facility] Medical Group - Internal Medicine [address] [address] Jan Doherty MD [address] [phone] Results (labs from Mar, 2010) Social History Tobacco Use Types Packs/Day Years [...] Telephone Encounter - Keya Garcia RN - 07/19/2010 3:29 PM CDT Pt calling, requesting a copy of labs from Mar, 2010 be faxed to her at work - DIRECTOR OF CONTENT AND PROGRAMMING is requestinga copy and pt has an upcoming appt. Faxed them to her at: [phone]. documented in this encounter Plan of Treatment Not on file documented as of this encounter Visit Diagnoses Not on filedocumented in this encounter Care Teams Membership Sales Representative Relationship Specialty Start Date End Date Jan Doherty MD [address] [facility] [address] [place] [phone] PCP - General 06/08/09 documented as of this encounter
--- OUTSIDE RECORDS SUMMARY | 2024-11-05 18:39 | XMS_ITS | Encounter Summary ---
Author Organization [facility] Address [address] [facility] [place] [address] Care Team Providers Care Bead Machine Operator Name Role Phone Jan Doherty MD Primary Care Provider [phone] [phone] Reason for Visit * Reason Onset Date Comments MEDICATION REFILL 02/01/2015 Encounter Details Date Type Department Care Team (Late st Contact Info) Description 02/01/2015 Refill [facility] Medical [facility] - Internal Medicine [address] [address] Jan Doherty MD [address] [address] MEDICATION REFILL Social History Tobacco [...] on filedocumented in this encounter Care Teams Bead Machine Operator Relationship Specialty Start Date End Date Jan Doherty MD [address] [address] PCP - General 06/08/09 documented as of this encounter
--- OUTSIDE RECORDS SUMMARY | 2024-11-05 18:39 | XMS_ITS | Encounter Summary ---
Author Organization [facility] Address [address] [place] [address] Care Team Providers Care Golf Shoe Spike Assembler Name Role Phone Jan Doherty MD Primary Care Provider [phone] -[phone] Encounter Details Date Type Department Care Team (Late st Contact Info) Description 04/03/2011 Orders Only [facility] Medical Group - Internal Medicine [address] [place] [address] Jan Doherty MD [address] [address] ADD (attention deficit disorder) Social [...] hyperactivity documented in this encounter Care Teams Golf Shoe Spike Assembler Relationship Specialty Start Date End Date Jan Doherty MD [address] [address] PCP - General 06/08/09 documented as of this encounter
--- OUTSIDE RECORDS SUMMARY | 2024-11-05 18:39 | XMS_ITS | Encounter Summary ---
Author Organization [facility] Address [address] [place] [address] Care Team Providers Care Road Roller Operator Hot Mix Name Role Phone Jan Doherty MD Primary Care Provider [phone] -[phone] Reason for Visit * Reason Onset Date Comments MEDICATION REFILL 03/13/2015 Encounter Details Date Type Department Care Team (Late st Contact Info) Description 03/13/2015 Refill [facility] Medical Group - Internal Medicine [address] [address] Jan Doherty MD [address] [address] MEDICATION REFILL Social History Tobacco [...] encounter Miscellaneous Notes * Telephone Encounter - Jesica Parrish MA - 03/22/2015 12:10 PM CDT We could not find the original scripts ordered on 03/15/15 so we had to reprint them for the patient when she showed up documented in this encounter Plan of Treatment Not on file documented as of this encounter Visit Diagnoses Diagnosis ADD (attention deficit disorder)- Primary Attention 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
--- OUTSIDE RECORDS SUMMARY | 2024-11-05 18:39 | XMS_ITS | Encounter Summary ---
Author Organization [facility] Address [address] [place] [address] Care Team Providers Care Electric Crane Operator Name Role Phone Jan Doherty MD Primary Care Provider [phone] -[phone] Reason for Visit * Reason Onset Date Comments UTI 10/05/2012 Encounter Details Date Type Department Care Team (Late st Contact Info) Description 10/05/2012 Telephone [facility] Medical [facility] - Internal Medicine [address] [address] Jan Doherty MD [address] [address] UTI Social History Tobacco Use [...] Telephone Encounter - Keya Garcia RN - 10/05/2012 12:53 PM CST Called pt's mother and advised her that prescription antibiotic has been sent to her pharmacy. CHANGER * Telephone Encounter - Kane Fuentes MD - 10/05/2012 12:48 PM CST cipro 250 mg #6 one bib CHANGER * Telephone Encounter - Keya Garcia RN - 10/05/2012 12:35 PM CST Pt of Dr. Doherty's mother calling, pt has UTI symptoms with burning on urination, frequency, cloudy urine with foul odor. Can she get a script for antibiotic? (allergy to Sulfa). CHANGER documented in this encounter Plan of Treatment Not on file documented as of this encounter Visit Diagnoses Not on filedocumented in this encounter Care Teams Electric Crane Operator Relationship Specialty Start Date End Date Jan Doherty MD [address] [phone] PCP - General 06/08/09 documented as of this encounter
--- OUTSIDE RECORDS SUMMARY | 2024-11-05 18:39 | XMS_ITS | Encounter Summary ---
Author Organization [facility] Address [address] [facility] [place] [address] Care Team Providers Care Electric Range Preparer Name Role Phone Jan Doherty MD Primary Care Provider [phone] -[phone] Reason for Visit * Reason Onset Date Comments MEDICATION REFILL 11/29/2013 Encounter Details Date Type Department Care Team (Late st Contact Info) Description 11/29/2013 Refill [facility] Medical [facility] - Internal Medicine [facility] [address] Jan Doherty MD [address] [address] MEDICATION REFILL Social History [...] hyperactivity documented in this encounter Care Teams Electric Range Preparer Relationship Specialty Start Date End Date Jan Doherty MD [address] [address] PCP - General 06/08/09 documented as of this encounter
--- OUTSIDE RECORDS SUMMARY | 2024-11-05 18:39 | XMS_ITS | Encounter Summary ---
Author Organization [facility] Address [address] [place] [address] Care Team Providers Care Power Plant Manager Name Role Phone Jan Doherty MD Primary Care Provider [phone] [phone] Reason for Visit * Reason Onset Date Comments MEDICATION REFILL 01/13/2014 Encounter Details Date Type Department Care Team (Late st Contact Info) Description 01/13/2014 Refill [facility] - Internal Medicine [address] [address] Jan Doherty MD [address] [address] MEDICATION REFILL Social History Tobacco [...] Miscellaneous Notes * Telephone Encounter - Vicente Rebolledo MA - 01/13/2014 3:02 PM CST Requested Prescriptions Pending Prescriptions Disp Refills ??? amphetamine-dextroamphetamine (ADDERALL) 10 MG tablet 30 Tab 0 Si daily in the evening ??? lisdexamfetamine (VYVANSE) 50 MG capsule 30 Cap 0 Sig: Take 1 Cap by mouth every morning. 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
--- OUTSIDE RECORDS SUMMARY | 2024-11-05 18:39 | XMS_ITS | Encounter Summary ---
Author Organization [facility] Address [address] [facility] [place] [address] Care Team Providers Care Pci Security Consultant Name Role Phone Jan Doherty MD Primary Care Provider [phone] [phone] Reason for Visit * Reason Onset Date Comments MEDICATION REFILL 05/24/2012 Encounter Details Date Type Department Care Team (Late st Contact Info) Description 05/24/2012 Refill [facility] Medical [facility] - Internal Medicine [facility] [address] [address] Jan Doherty MD [address] [address] MEDICATION REFILL Social History Tobacco [...] hyperactivity documented in this encounter Care Teams Pci Security Consultant Relationship Specialty Start Date End Date Jan Doherty MD [address] [address] PCP - General 06/08/09 documented as of this encounter
--- OUTSIDE RECORDS SUMMARY | 2024-11-05 18:40 | XMS_ITS | Encounter Summary ---
Author Organization [facility] Address [address] [facility] [place] [address] Care Team Providers Care Access Developer Name Role Phone Jan Doherty MD Primary Care Provider [phone] [phone] Reason for Visit * Reason Onset Date Comments UTI 09/14/2009 Encounter Details Date Type Department Care Team (Late st Contact Info) Description 09/14/[address] [facility] Medical [facility] - Internal Medicine [address] [address] Jan Doherty MD [address] [address] UTI Social History Tobacco Use [...] Telephone Encounter - Keya Garcia RN - 09/17/2009 8:48 AM CST Called patient after sending Cipro to her pharmacy on 09/14/09. Left message that script was calledin. WAY MAINTAINER * Telephone Encounter - Jan Doherty MD - 09/14/2009 1:[address] MAINTAINER Cipro [address] MAINTAINER * Telephone Encounter - Keya Garcia RN - 09/14/2009 11:42 AM CST Pt called. Has a UTI, burning, frequency, urine cloudy with odor. Has had in past. Can she get antibiotic called into her pharmacy? (allergy to sulfa - n/v). WAY MAINTAINER * Telephone Encounter - Keya Garcia RN - 09/14/2009 10:25 AM CST Pt called and left message that she has a UTI. Would like antibiotic called into pharmacy. WAY MAINTAINER documented in this encounter Plan of Treatment Not on file documented as of this encounter Visit Diagnoses Not on filedocumented in this encounter Care Teams Access Developer Relationship Specialty Start Date End Date Jan Doherty MD [address] [address] PCP - General 06/08/09 documented as of this encounter
--- OUTSIDE RECORDS SUMMARY | 2024-11-05 18:40 | XMS_ITS | Encounter Summary ---
Author Organization [facility] Address [address] [place] [address] Care Team Providers Care Leather Cartridge Belt Maker Name Role Phone Jan Doherty MD Primary Care Provider [phone] [phone] Reason for Visit * Reason Onset Date Comments MEDICATION REFILL 06/07/2009 Encounter Details Date Type Department Care Team (Late st Contact Info) Description 06/07/2009 Refill [facility] Medical [facility] - Internal Medicine [address] [address] Jan Doherty MD [address] [phone] MEDICATION REFILL Social History Tobacco Use Types Packs/Day Years Used Date Smoking Tobacco: Never Assessed Sex and Gender Information Value Date Recorded Sex Assigned at Not on file Gender Identity Not on file Sexual Orientation Not on file documented as of this encounter Miscellaneous Notes * Telephone Encounter - Diana Rosado - 06/07/2009 3:16 PM CDT No visit since 07-21-08...last refill was 04-11-09 documented in this encounter Plan of Treatment Not on file documented as of this encounter Visit Diagnoses Not on filedocumented in this encounter Care Teams Leather Cartridge Belt Maker Relationship Specialty Start Date End Date Jan Doherty MD [address] [address] PCP - General 06/08/09 documented as of this encounter
--- OUTSIDE RECORDS SUMMARY | 2024-11-05 18:40 | XMS_ITS | Encounter Summary ---
Author Organization [facility] Address [address] [facility] [place] [address] Care Team Providers Care Band Saw Marker Name Role Phone Jan Doherty MD Primary Care Provider [phone] Reason for Visit * Reason Comments Follow-up Encounter Details Date Type Department Care Team (Late st Contact Info) Description 06/09/2009 11:10 AM CDT Office Visit [facility] Medical [facility] - Internal Medicine [address] [address] Jan Doherty MD [address] [phone] ADD (Attention Deficit Disorder) (Primary Dx) Social History Tobacco Use Types [...] Reading Time Taken Comments Blood Pressure 100/60 06/09/2009 11:26 AM CDT Pulse - - Temperature - - Respiratory Rate - - Oxygen Saturation - - Inhaled Oxygen Concentration - - Weight 44.5 kg (98 lb) 06/09/2009 11:26 AM CDT Height 158.8 cm (5' 2.5 ) 06/09/2009 11:26 AM CD T Body Mass Index 17.64 06/09/2009 11:26 AM CDT documented in this encounter Progress Notes * Nolvia Rosado - 06/13/2009 4:39 PM CDTAddended by: NOLVIA ROSADO on: 06/13/2009 4:39:23 PM Modules accepted: Orders, Medications * Jan Doherty MD - 06/09/2009 11:51 AM CDT SUBJECTIVE: Maricel Cardona is a 23 y.o. female here today for follow up. School is going well with rx. General ROS: healthy ENT ROS: denies [...] no TIA or stroke symptoms OBJECTIVE: BP 100/60 Wt 44.453 kg (98 lb) SHEENT: Skin is warm and dry.Heart: Regular rate and rhythm. Lungs: Clear to auscultation bilaterally. Extremities: No edema. ASSESSMENT: Encounter Diagnosis Name Primary? ADD (Attention Deficit Disorder) Yes PLAN: No orders of the defined types were placed in this encounter. The patient indicates understanding of these issues and agrees with the plan. * Jannie Logan - 06/09/2009 11:30 AM CDT the patient in today for follow up and refill of adderall documented in this encounter Plan of Treatment Not on file documented as of this encounter Visit Diagnoses Diagnosis ADD (attention deficit disorder)- Primary Attention deficit disorder without mention of hyperactivity documented in this encounter Care Teams Band Saw Marker Relationship Specialty Start Date End Date Jan Doherty MD [address] [address] PCP - General 06/08/09 documented as of this encounter
== END 2024-10-29 12:29 | disposition home or self-care (01) ==
LOC: ANHLAB 12:29
PROVIDERS: Visit Provider Obstetrics & Gynecology
DX: D64.9 Anemia, unspecified (principal)
CPT/HCPCS: 36415; 83525; 84144; 85027

== ENCOUNTER 2025-06-26 09:07 | Emergency (ER) | payer BC, SELFPAY ==
[2025-06-26 09:18] VITALS: BP 167/88; PULSE 64; RESP 18; O2SAT 100
[2025-06-26 09:25] LABS: BEDSIDEPREGUCG Positive (Negative)
--- OUTSIDE RECORDS SUMMARY | 2025-06-26 09:28 | XMS_ITS | Clinical Summary ---
Author Organization [facility] Address [address] [facility] [address] [place] [address] Phone Care Team Providers Care Bankruptcy Judge Name Role Phone Jan Doherty MD Primary Care Provider + Allergies Active Allergy Reactions Criticality Noted Date Comments Sulfa (Sulfonamide Antibiotics) Other (See comments) Reaction: Unknown, Medications aluminum chloride (DRYSOL DAB-O-MATIC) 20 % external solution Apply topically 2 (two) times a day 60 mL 3 9 Active irbesartan (AVAPRO) 150 mg tablet Take 1 tablet (150 mg total) by mouth nightly 30 tablet 11 3 Active atorvastatin (LIPITOR) 20 mg tablet Take 1 tablet (20 mg total) by mouth daily 30 tablet 11 4 Active labetaloL (NORMODYNE,TRANDAT E) 200 mg tablet TAKE 2 & 1/2 (TWO & ONE-HALF) TABLETS BY MOUTH TWICE DAILY 450 tablet 3 5 Active NIFEdipine XL 30 mg 24 hr tablet Take 1 tablet (30 mg total) by mouth daily 90 tablet 3 5 Active acyclovir (ZOVIRAX) 400 mg tablet TAKE 1 TABLET BY MOUTH EVERY 12 HOURS 180 tablet 5 Active dextroamphetamine- amphetamine XR (ADDERALL XR) 20 mg 24 hr capsule Take 1 capsule (20 mg total) by mouth every morning 30 capsule 5 Active dextroamphetamine- amphetamine (AdderalL) 10 mg tabletIndications: Attention deficit disorder (ADD) without hyperactivity Take 1 tablet (10 mg total) by mouth daily 30 tablet 5 Active escitalopram (LEXAPRO) 20 mg tablet Take 1 tablet by mouth once daily 90 tablet 3 5 Active Active Problems Problem Noted Date Diagnosed Date Hypertension, essential 06/18/2022 Irritable bowel syndrome 08/02/2019 Anxiety 08/02/2019 Assessment & Plan (12/16/2021 6:14 PM STENOTYPE MACHINE OPERATOR): Chronic- marginally controlled- will increase to 20mg. Return in one month. Insomnia 08/02/2019 BMI 22.0-22.9, adult 04/01/2018 Assessment & Plan (04/01/2018 9:16 AM CDT): BMI Follow-up includes: education provided BMI is normal. Attention deficit disorder 09/14/2015 Overview (02/13/2017): ADD (attention deficit disorder) Assessment & Plan (12/16/2021 6:14 PM STENOTYPE MACHINE OPERATOR): She will remain on Vyvanse- she understands the need to be seen on a regular visit for ongoing prescriptions. Immunizations Immunization Administration Dates Next Due Influenza, Unspecified 07/22/2023(Deferr ed: Patient decision),10/02/2021,04/01/2018(Deferre d: Patient Refused) Moderna SARS-CoV-2 Monovalen t Vaccination (12+ YRS) 03/01/2021,01/29/2021 Tdap 05/21/2014 Medical History Medical History Date Comments Attention deficit disorder ( ADD) without hyperactivity ADD; Comments: RRG 5 - Hypertension Family History Medical History Relation Name Comments Hypertension Brother Leukemia Brother Pancreatic cancer Father Coronary a rtery disease; Hypertension Mother Hypertension; Lupus Mother Lupus erythemat osus; Relation Name Status Comments Brother Alive Father Mother Alive Social History Tobacco Use Types Packs/Day Years Used Date Smoking Tobacco: Never Smokeless Tobacco: Never Tobacco Cessation:Counseling Given: Not Answered Alcohol Use Standard Drinks/Week Comments Yes 0 (1 standard drink = 0.6 oz pur e alcohol) PHQ-2 Answer Date Recorded PHQ-2 Total Score (If total score is 3 or more points, staff should administer the PHQ-9) 0 10/10/2022 Personal Safety Answer Date Recorded Getting School Help Needed Not on file 11/07 Comments Unknown Sex and Gender Information Value Date Recorded Sex Assigned at Not on file Legal Sex Female 10:39 PM STENOTYPE MACHINE OPERATOR Gender Identity Not on file Sexual Orientation Not on file Occupation Industry Job Start Date Job End Date [facility] Not on file Not on file No t on file Obstetrics History Last Filed Vital Signs Vital Sign Reading Time Taken Comments Blood Pressure 112/60 01/29/2024 1:38 PM CDT Pulse 99 01/29/2024 1:38 PM CDT Temperature 36.1 C (96.9 F) 06/18/2022 3:25 PM CDT Respiratory Rate 16 07/31/2022 9:37 AM CDT Oxygen Saturation 98% 01/29/2024 1:38 PM CDT Inhaled Oxygen Concentration - - Weight 74.1 kg (163 lb 6.4 oz) 01/29/2024 1:38 P M CDT Height 157.5 cm (5' 2) 01/29/2024 1:38 PM CDT Body Mass Index 29.89 01/29/2024 1:38 PM CDT Plan of Treatment Health Maintenance Due Date Last Done Comments Hepatitis C Screening 1987 Hepatitis B Screening 2005 HPV Vaccines (1 - 3-dose SCDM series) 2014 Cervical Cancer Screening 02/12/2020 02/11/2019 Depression Screening 10/10/2023 10/10/2022, 07/31/2022, 12/16/2021, Additional history exists DTaP/Tdap/Td Vaccine (2 - Td or Tdap) 05/21/2024 05/21/2014 Covid-19 Vaccine ( season) 2024 03/01/2021, 01/29/2021 Regular Well Visit/Exam 18-64 01/28/2025 01/29/2024, 10/10/2022, 02/15/2019 Influenza Vaccine Discontinued 10/02/2021 Pneumococcal vaccine <65 Aged Out No longer eligible based on patient's age to complete this topic Varicella Vaccines Discontinued Procedures Procedure Name Priority Date/Time Associated Diagnosis Comments HM PAP SMEAR WITH HPV Routine 02/11/2019 from Last 3 Months or Most Recently Relevant to Health Maintenance Results * PAP SMEAR WITH HPV (02/11/2019) Pap smear Normal us Historical Provider MD HEALTH MAINTENANCE Final Result from Last 3 Months or Most Recently Relevant to Health Maintenance Insurance N(i)² ACCESS CHOICE N(i)² ACCESS CHOICE ANTHUlmart ACCESS CHOICE Care Teams Bankruptcy Judge Relationship Specialty Start Date End Date Jan Doherty MD [address] [address] PCP - General 02/06/17
--- OUTSIDE RECORDS SUMMARY | 2025-06-26 09:28 | XMS_ITS | Clinical Summary ---
Author Organization [facility] Travel Notes Address [address] [facility] [place] [address] Care Team Providers Care Electrical And Instrument Engineer Name Role Phone Jan Doherty MD Primary Care Provider [phone] [phone] Source Comments [facility],non[facility] Affiliates and Associated Physician Practices is amultiple site organization consisting of ambulatory clinics and hospital sitesin [place], [place], [place] and [place]. This disclosure is being madepursuant to the Care Everywhere program and may not contain all information available regarding this patient. Last updated 18.[facility] Travel Notes Allergies Active Allergy Reactions Criticality Noted Date Comments Sulfa Drugs 06/09/2009 Medications * Be aware that medications may not be up to date on this document. Alwaysverify current medications with the patient. ciprofloxacin (CIPRO) 500 MG tablet Take 1 Tab by mouth 2 times daily. 14 Tab 0 11/30/2014 Active acyclovir (ZOVIRAX) 200 MG capsuleIndicati ons:HSV (herpes simplex virus) infection Take 1 Cap by mouth 2 times daily 180 Cap 3 05/30/2015 Active amphetamine-dex troamphetamine (ADDERALL) 10 MG tabletIndicatio ns:ADD (attention deficit disorder) 1 EVERY EVENING; PA APPROVED 01/13/15-02/12/16 Earliest Fill Date: 06/01/15 30 Tab 0 06/01/2015 Active lisdexamfetamin e (VYVANSE) 50 MG capsuleIndicati ons:ADD (attention deficit disorder) 1 Cap every morning [...] 2004 ADD (attention deficit disorder) 06/08/2009 Immunizations Immunization Administration Dates Next Due TDAP (7yrs+) 06/15/2022(Deferred: [...] on one occasion? Less than monthly 06/15/2022 Comments No Sex and Gender Information Value Date Recorded Sex Assigned at Not on file Legal Sex Female 6:43 AM BAND SAWING MACHINE OPERATOR Gender Identity Not on file Sexual Orientation Not on file Last Filed Vital Signs Vital Sign Reading Time Taken Comments Blood Pressure 176/115 06/15/2022 2:30 AM CDT Pulse 112 06/15/2022 12:28 AM CDT Temperature 36.3 C (97.4 F) 06/15/2022 12:28 AM CDT Respiratory Rate 19 06/15/2022 12:28 AM CDT Oxygen Saturation 99% 06/15/2022 2:30 AM CDT Inhaled Oxygen Concentration - - Weight 65.8 kg (145 lb) 06/15/2022 12:28 AM CDT Height 157.5 cm (5' 2) 06/15/2022 12:28 AM CDT Body Mass Index 26.52 06/15/2022 12:28 AM CDT Plan of Treatment Health Maintenance Due Date Last Done Comments HIV SCREENING 2002 HEPATITIS C SCREENING 07/04/2005 HEPATITIS B VACCINE (1 of 3 - 19+ 3-dose series) 2006 HPV VACCINE (1 - 3-dose SCDM series) 2014 DTAP/TDAP/TD VACCINES (2 - T d or Tdap) 05/11/2024 05/11/2014 COVID-19 VACCINE (3 - 2023-2 5 season) 2024 03/01/2021, 01/29/2021 DEPRESSION SCREENING 11/09/2024 INFLUENZA VACCINE (#1) 2025 10/02/2021 PAP SMEAR 09/17/2025 09/17/2022 ZOSTER VACCINE (1 of 2) 2037 HIB VACCINE Aged Out No longer eligi ble based on patient's age to complete this topic MENINGOCOCCAL (Group B) VACCINE SHARED DECISION-MAKING Aged Out No longer eligible based on patient's age to complete this topic MENINGOCOCCAL GROUPS A/C/Y/W VACCINE Aged Out No longer eligible b ased on patient's age to complete this topic PNEUMOCOCCAL VACCINE Aged Out No long er eligible based on patient's age to complete this topic Procedures Procedure Name Priority Date/Time Associated Diagnosis Comments PAP SMEAR REPORT ORDER 09/17/2022 from Last 3 Months or Most Recently Relevant to Health Maintenance Results * PAP SMEAR REPORT ORDER (09/17/2022) 09/17/2022 Narrative 09/17/2022 Ordered by an unspecified provider. us Scanned Document LAB - PATHOLOGY/CYTOLOGY ORDERA BLES Final Result from Last 3 Months or Most Recently Relevant to Health Maintenance Insurance [employer]THEM [employer] ANTHEM Care Teams Electrical And Instrument Engineer Relationship Specialty Start Date End Date Jan Doherty MD [address] [address] PCP - General 7/31/09
[2025-06-26 09:29] VITALS: BP 167/88; PULSE 67; RESP 16; TEMP 36.4; O2SAT 100
--- NOTE | 2025-06-26 09:34 | ED_ITS ---
HPI - Abdominal Pain General Chief Complaint: Abdominal Pain Stated Complaint: abdominal pain, + test Time Seen by Provider: 06/26/25 09:09 Source: patient Mode of arrival: ambulatory Limitations: no limitations History of Present Illness HPI narrative: This is a 39 year old female that presents to the ER for abdominal pain, nausea, vomiting ongoing since this morning. Also reports diarrhea. Reports she is currently undergoing fertility treatments. She had a positive test this morning. She has had some intermittent vaginal spotting the last couple of days. Denies fevers, dysuria. Related Data Home Medications ?Medication ?Instructions ?Recorded ?Confirmed ?Last Taken ?Type acyclovir 400 mg tablet 400 mg PO DAILY 10/08/23 07/26/24 Unknown History escitalopram oxalate 20 mg tablet 20 mg PO DAILY 10/08/23 07/26/24 Unknown History labetalol 200 mg tablet 200 mg PO Q12H 10/08/23 07/26/24 Unknown History Allergies Allergy/AdvReac Type Severity Reaction Status Date / Time Sulfa (Sulfonamide Allergy Unknown Verified 06/26/25 09:29 Antibiotics) Review of Systems 2 Review of Systems: All systems reviewed & are unremarkable except as noted in HPI and below PMFSH Past Medical History Medical History Anxiety HSV (herpes simplex virus) infection HTN (hypertension) No significant active problems Social History Social History Smoking status: Never smoker Alcohol intake: former Substance use: never Lack of Transportation: No Lack of Food: Never True Current Housing: I Have Housing Concerned About Future Housing: No Difficulty Paying Gas/Electric Bills: No Difficulty Paying for Meds: No Currently Unemployed: No Occupation/Education: occupation Gender identity (if verbalized by the patient): Female Sexual Orientation (if Verbalized by the Patient): Straight or Heterosexual Exam 2 Narrative: GENERAL: Uncomfortable, well-nourished, and in no acute distress. HEAD: Normocephalic, atraumatic. EYES: EOMI. ENT: Nares clear, no rhinorrhea or epistaxis. Mucous membranes moist. CHEST: Clear to auscultation. No respiratory distress. No wheezes rales or rhonchi HEART: Regular rate and rhythm. No murmur heard. Normal peripheral pulses. ABDOMEN: Soft, nontender, nondistended, normal active bowel sounds. EXTREMITIES: Normal range of motion. No edema. SKIN: Warm, dry, no rash. NEURO: No focal deficits. Alert and oriented x3. PSYCH: Normal mood and affect Course Course Emergency Course: Patient reports feeling better. She is ready for discharge Vital Signs Vital signs: Vital Signs Pulse Rate 64 06/26/25 09:18 Respiratory Rate 18 06/26/25 09:18 Blood Pressure 167/88 H 06/26/25 09:18 Pulse Oximetry 100 06/26/25 09:18 Oxygen Delivery Room Air 06/26/25 09:18 Temperature 97.6 F 06/26/25 09:29 Pulse Rate 81 06/26/25 10:30 Respiratory Rate 18 06/26/25 10:30 Blood Pressure 150/91 H 06/26/25 10:30 Pulse Oximetry 100 06/26/25 10:30 Oxygen Delivery Room Air 06/26/25 09:18 MDM - Abdominal Pain MDM Narrative Medical decision making narrative: Patient presents to the emergency department for nausea, vomiting and diarrhea. Ongoing since earlier this morning. Reports a positive test today. She is currently undergoing fertility treatment. She is afebrile and nontoxic appearing. Her vitals are stable. She is hypertensive, she has known history of hypertension. Was unable to take her medications this morning. CBC with leukocytosis to 13.4. Likely due to vomiting. Also shows normocytic anemia, hemoglobin around her baseline. Metabolic panel and lipase without concerning findings. Urine without evidence of infection. There is some red blood cells, patient does report some intermittent vaginal spotting. She is AB-positive. Quantitative beta hCG is 25. Patient was hydrated, given antiemetic and Tylenol with relief. Reports she is ready for discharge. Instructed to have close follow-up with her OB. Will be given order for repeat quantitative beta hCG. She was given warnings to return to the ER Differential Diagnosis Differential diagnosis: Likely gastroenteritis and other (nausea and vomiting in , UTI, dehydration, electrolyte derangement) Lab Data Attestation: I reviewed the patient's lab results. 06/26/25 09:31 06/26/25 09:31 Labs: Lab Results 06/26/25 06/26/25 Range/Units 09:23 09:31 WBC 13.4 H (4.5-10.0) K/mm3 RBC 3.84 L (4.2-5.4) M/mm3 Hgb 10.8 L (12.0-15.0) g/dL Hct 32.4 L (37.0-47.0) % MCV 84.4 (80-100) fl MCH 28.1 (26-34) pg MCHC 33.3 (32-36) g/dl RDW 13.3 (11.5-14.5) % Plt Count 396 H (150-375) k/mm3 MPV 8.8 (7.4-10.4) fl Immature Gran % (Auto) 0.7 H (0-0.5) % Neut % (Auto) 87.4 H (45.5-73.1) % Lymph % (Auto) 7.9 L (18.3-44.2) % [place] % (Auto) 3.8 (2.6-8.5) % Eos % (Auto) 0.1 (0-4.4) % Baso % (Auto) 0.1 L (0.2-1.2) % Lymph # (Auto) 1.06 (0.9-3.2) K/mm3 [place] # (Auto) 0.5 (0.1-0.6) K/mm3 Eos # (Auto) 0.0 (0-0.3) K/mm3 Baso # (Auto) 0.0 (0.0-0.1) K/mm3 Abs Immat Gran (auto) 0.09 H (0.00-0.031) K/mm3 Absolute Neuts (auto) 11.7 H (1.3-6.7) K/mm3 Absolute Nucleated RBC 0.000 (0.0-0.012) K/mm3 Nucleated RBC % 0.0 (0.0-0.2) % Sodium 133 L (137-145) mmol/L Potassium 4.2 (3.4-5.0) mmol/L Chloride 101 (98-107) mmol/L Carbon Dioxide 23 (22-30) mmol/L Anion Gap 9 (4-12) mmol/L BUN 10 (7-17) mg/dL Creatinine 0.80 (0.7-1.0) mg/dL Estim Creat Clear Calc 80 ml/min Estimated GFR > 60 (59 - ) Glucose 124 H (65-110) mg/dL Calcium 9.5 (8.4-10.2) mg/dL Total Bilirubin 0.3 (0.2-1.3) mg/dL AST 30 (14-36) U/L ALT 20 (6-35) U/L Alkaline Phosphatase 89 (38-126) U/L Total Protein 7.8 (6.3-8.2) g/dL Albumin 4.4 (3.5-5.1) g/dL Lipase 38 (23-300) U/L Beta HCG, Quant 25.50 mIU/ML Urine Color Yellow (Yellow) Urine Appearance Clear (Clear) Urine pH 5.5 (5.0-9.0) Ur Specific [place] 1.025 (1.001-1.035) Urine Protein Trace (Negative) mg/dL Urine Glucose (UA) Negative (Negative) mg/dL Urine Ketones Trace H (Negative) mg/dL Ur Blood (Man) 3+ H (Negative) Urine Nitrate Negative (Negative) Urine Bilirubin Negative (Negative) Urine Urobilinogen 0.2 (<2.0) mg/dL Leukocyte Esterase Rfl Trace H (Negative) RUTH/UL Urine RBC 11-20 H (0-2) /hpf Urine WBC 0-5 (0-3) /hpf Ur Squamous Epith Cells Occasional (Few) /hpf Urine Bacteria None seen /hpf Urine Casts 0-2 POC Urine HCG, Qual Positive (Negative) Critical Care Time Critical Care Time Critical Care Time: No Discharge Plan Discharge Clinical Impression: Nausea and vomiting Qualifiers: Vomiting type: unspecified Qualified Code(s): R11.2 - Nausea with vomiting, unspecified Qualifiers: Weeks of gestation: less than 8 weeks Qualified Code(s): Z3A.01 - Less than 8 weeks gestation of Patient Disposition: Home Condition: Improved Instructions: Nausea and Vomiting in (ED) Additional Instructions: Return to the ER if you experience fever, chest pain, shortness of breath, abdominal pain with nausea and vomiting, you are unable to keep down liquids or solids, pelvic cramping, you are soaking through a pad/hour, or any other symptoms that are concerning to you Compazine as needed for nausea. Small, frequent meals. [place] diet. Remain well hydrated. Acetaminophen as needed for pain. I have sent an order electronically for you to repeat your hormone in 2 days (Thursday). This can be done at a lab of your choice. Pelvic rest, no tampons or sex Follow up with your OB for further care Patient Language: Upper Sorbian Prescriptions: New prochlorperazine maleate [Compazine] 5 mg tablet 5 mg PO Q6-8H PRN (Reason: nausea and vomiting) Qty: 14 0RF No Action acyclovir 400 mg tablet 400 mg PO DAILY labetalol 200 mg tablet 200 mg PO Q12H escitalopram oxalate 20 mg tablet 20 mg PO DAILY nifedipine [Procardia XL] 30 mg tablet extended release 24hr 30 mg PO DAILY Qty: 30 0RF metformin 1,000 mg tablet 1,000 mg PO DAILY Qty: 30 0RF Other Ambulatory Orders: Beta HCG Quantitative (Routine) Timeframe: 2 Days Location: Determined by Patient Ordered By: Latesha Brown Follow-up/Referrals: UNKNOWN,DOCTOR [Primary Care Provider] -
[2025-06-26 09:43] LABS: Hematocrit 32.4 % (37.0-47.0); Hemoglobin 10.8 g/dL (12.0-15.0); Immature Granulocyte Percent A 0.7 % (0-0.5); Lymphocytes Absolute Auto 1.06 K/mm3 (0.9-3.2); Mean Corpuscular HGB Conc 33.3 g/dl (32-36); Mean Corpuscular Hemoglobin 28.1 pg (26-34); Mean Corpuscular Volume 84.4 fl (80-100); Nucleated Red Blood Cells Absolute Auto 0.000 K/mm3 (0.0-0.012); Nucleated Red Blood Cells Perc 0.0 % (0.0-0.2); Platelet Count Result 396 k/mm3 (150-375); Red Blood Count 3.84 M/mm3 (4.2-5.4); White Blood Count 13.4 K/mm3 (4.5-10.0)
[2025-06-26] MEDS: SODIUM CHLORIDE 0.9% IV 1,000 ML 999 ML IV CONT (09:43)
[2025-06-26] MEDS: METOCLOPRAMIDE HCL INJ 10 MG/2 ML VIAL IV PUSH (09:44)
[2025-06-26] MEDS: FAMOTIDINE 20 MG/2 ML VIAL IV PUSH (09:44)
[2025-06-26 09:47] LABS: Add Urine Microscopic? YES; Appearance Urine Clear (Clear); Glucose Urine UA Negative (Negative); Leukocyte Esterase Ur Trace LEU/UL (Negative); Nitrate Urine Negative (Negative); Non Pathogenic Casts 0-2; Specific Grav Ur 1.025 (1.001-1.035)
[2025-06-26 09:50] VITALS: BP 142/90; PULSE 70; RESP 19; O2SAT 100
[2025-06-26 10:04] LABS: Alanine Aminotransferase 20 U/L (6-35); Albumin Level 4.4 g/dL (3.5-5.1); Alkaline Phosphatase 89 U/L (38-126); Anion Gap 9 mmol/L (4-12); Aspartate Amino Transferase 30 U/L (14-36); Bilirubin,Total 0.3 mg/dL (0.2-1.3); Blood Urea Nitrogen 10 mg/dL (7-17); Calcium 9.5 mg/dL (8.4-10.2); Carbon Dioxide 23 mmol/L (22-30); Chloride 101 mmol/L (98-107); Estimated CRCL calculation 80 ml/min; Estimated Glomerular Filt Rate > 60; Glucose 124 mg/dL (65-110); Lipase 38 U/L (23-300); Potassium 4.2 mmol/L (3.4-5.0); Sodium 133 mmol/L (137-145); Total Protein 7.8 g/dL (6.3-8.2)
--- OUTSIDE RECORDS SUMMARY | 2025-06-26 10:07 | XMS_ITS | Clinical Summary ---
Author Organization [facility] Address [address] [place] [address] Phone Care Team Providers Care Vascular Sonographer Name Role Phone Jan Doherty MD Primary [...] 08/02/2019 Assessment & Plan (12/16/2021 6:14 PM MASH PREPARATORY OPERATOR): Chronic- marginally controlled- will increase to 20mg. Return in one month. Insomnia 08/02/2019 BMI 22.0-22.9, adult 04/01/2018 Assessment & Plan (04/01/2018 9:16 AM CDT): BMI Follow-up includes: education provided BMI is normal. Attention deficit disorder 09/14/2015 Overview (02/13/2017): ADD (attention deficit disorder) Assessment & Plan (12/16/2021 6:14 PM MASH PREPARATORY OPERATOR): She will remain on Vyvanse- she [...] on file Legal Sex Female 10:39 PM MASH PREPARATORY OPERATOR Gender Identity Not on file Sexual [...] Most Recently Relevant to Health Maintenance Insurance [employer] ACCESS CHOICE [employer] ACCESS CHOICE Care Teams Vascular Sonographer Relationship Specialty Start Date End Date Jan Doherty MD [address] [address] PCP - General 02/06/17
--- OUTSIDE RECORDS SUMMARY | 2025-06-26 10:07 | XMS_ITS | Clinical Summary ---
Author Organization [facility] Address [address] [place] [address] Care Team Providers Care Fiscal Manager Name Role Phone Jan Doherty MD Primary Care Provider [phone] Source Comments [facility] Affiliates and Associated Physician Practices is amultiple site organization consisting of ambulatory clinics and hospital sitesin [place], [place], [place] and [place]. This disclosure is being madepursuant to the Care Everywhere program and may not contain all information available regarding this patient. Last updated 18.[facility] Allergies Active Allergy Reactions Criticality Noted Date [...] on file Legal Sex Female 6:43 AM SALES OPERATIONS ANALYST Gender Identity Not on file Sexual Orientation [...] [employer] Care Teams Fiscal Manager Relationship Specialty Start Date End Date Jan Doherty MD [address] [id number] PCP - General 7/31/09
[2025-06-26 10:20] LABS: Beta HCG Quantitative 25.50 mIU/ML
[2025-06-26] MEDS: ACETAMINOPHEN 500 MG TABLET 1000 MG PO (10:29)
[2025-06-26 10:30] VITALS: BP 150/91; PULSE 81; RESP 18; O2SAT 100
[2025-06-26 11:45] VITALS: BP 153/83; PULSE 74; RESP 15; TEMP 36.6; O2SAT 100
== END 2025-06-26 11:47 | disposition home or self-care (01) ==
PROVIDERS: Emergency Provider Physician Assistant
DX: O21.0 Mild hyperemesis gravidarum (principal); Z3A.01 Less than 8 weeks gestation of pregnancy; F41.9 Anxiety disorder, unspecified; I10 Essential (primary) hypertension
CPT/HCPCS: 36415; 80053; 81001; 81025; 83690; 84702; 85025; 96361; 96374; 96375; 99284; A9270; J1200; J2765; J7030

== ENCOUNTER 2025-11-08 15:26 | Outpatient (CLI) | payer BC, SELFPAY ==
--- NOTE | 2025-11-08 16:07 | PC.NURSE ---
Dr. Vu at the bedside to preform spec exam on the pt. Per MD closed cervix on evaluation with mucas present.
[2025-11-08 16:08] LABS: Hematocrit 29.3 % (37.0-47.0); Hemoglobin 9.8 g/dL (12.0-15.0); Immature Granulocyte Percent A 0.5 % (0-0.5); Lymphocytes Absolute Auto 1.64 K/mm3 (0.9-3.2); Mean Corpuscular HGB Conc 33.4 g/dl (32-36); Mean Corpuscular Hemoglobin 27.8 pg (26-34); Mean Corpuscular Volume 83.2 fl (80-100); Nucleated Red Blood Cells Absolute Auto 0.000 K/mm3 (0.0-0.012); Nucleated Red Blood Cells Perc 0.0 % (0.0-0.2); Platelet Count Result 387 k/mm3 (150-375); Red Blood Count 3.52 M/mm3 (4.2-5.4); White Blood Count 8.6 K/mm3 (4.5-10.0)
[2025-11-08 16:15] VITALS: PULSE 85; O2SAT 97
[2025-11-08 16:16] VITALS: BP 127/84; PULSE 83
[2025-11-08 16:18] VITALS: BP 127/84; PULSE 85; RESP 22; TEMP 37.2; O2SAT 98
--- NOTE | 2025-11-08 16:18 | WPDCN ---
Assessment and Plan Assessment and plan (1) Oligohydramnios: Code(s): O41.00X0 - Oligohydramnios, unspecified trimester, not applicable or unspecified Status: Acute Assessment and Plan: 1. Reassuring heart rate. No signs of infection. She has been counseled by MF and myself today of possible early rupture of membranes versus other developmental . No ROM plus done due to having blood tinged. She is aware of symptoms of infection to call for and is aware of risk and recommendations if signs of septic miscarriage. HPI Data of Consult Date/Time: 11/08/25 16:18 Requesting Physician: Antonino Vu MD Primary Care Provider: UNKNOWN,DOCTOR Consult Narrative Narrative: Maricel Cardona is a 40 year old female presented to L and D per MFM recommendation. She had ultasound and MFM consult today and ultrasound showed oligohydramnios. She had a large amount of mucous with blood tinged last pm and small amount today. Denies gush. Denies pain or fever or chills. PNC significant for AMA, IVF conception, CHTN. Denies urinary symptoms. Labs on L/D normal WBC, temp 99. Review of Systems Review of Systems: All systems reviewed & are unremarkable except as noted in HPI and below Constitutional: Constitutional: Reports no additional constitutional complaints and Denies headache(s) Eyes: Eyes: Denies spots in vision ENT: Reports system reviewed and no additional complaints, except as documented and Denies headache(s) Cardiovascular: Cardiovascular: Denies chest pain and Denies dyspnea Respiratory: Respiratory: Denies dyspnea Gastrointestinal: Gastrointestinal: Reports no additional gastrointestinal complaints Genitourinary: Genitourinary: Reports amenorrhea Musculoskeletal: Musculoskeletal: Reports no additional musculoskeletal complaints Integumentary/Breasts: Skin/Breast: Denies breast mass and Denies rash Neurologic: Denies headache(s) Psychiatric: Psychiatric: Reports no additional psychiatric complaints PMFSH Past Medical History Medical History Anxiety HSV (herpes simplex virus) infection HTN (hypertension) No significant active problems Social History Social History Smoking status: Never smoker Alcohol intake: former Substance use: never Lack of Transportation: No Lack of Food: Never True Current Housing: I Have Housing Concerned About Future Housing: No Difficulty Paying Gas/Electric Bills: No Difficulty Paying for Meds: No Currently Unemployed: No Occupation/Education: occupation Gender identity (if verbalized by the patient): Female Sexual Orientation (if Verbalized by the Patient): Straight or Heterosexual Meds Home Medications and Allergies Home Medications ?Medication ?Instructions ?Recorded ?Confirmed ?Type acyclovir 400 mg tablet 400 mg PO BID 10/08/23 11/08/25 History labetalol 200 mg tablet 200 mg PO Q12H 10/08/23 11/08/25 History nifedipine 30 mg tablet,extended 30 mg PO DAILY #30 tabs 11/23/24 11/08/25 Rx release 24 hr (Procardia XL) aspirin 81 mg tablet 162 mg PO DAILY 10/26/25 11/08/25 History dextroamphetamine-amphetamine 10 10 mg PO DAILY 10/26/25 11/08/25 History mg tablet (Adderall) docosahexaenoic acid 200 mg 200 mg PO DAILY 10/26/25 11/08/25 History capsule ( DHA) escitalopram oxalate 20 mg tablet 20 mg PO DAILY 10/26/25 11/08/25 History (Lexapro) metformin 1,000 mg tablet 500 mg PO BID 11/08/25 11/08/25 History Allergies Allergy/AdvReac Type Severity Reaction Status Date / Time Sulfa (Sulfonamide Allergy Unknown Verified 11/08/25 16:31 Antibiotics) Vital Signs Vital Signs - 24 hr 11/08/25 16:15 11/08/25 16:16 Pulse Rate 83 Blood Pressure 127/84 Pulse Oximetry 97 Exam Const: General: no acute distress Eyes: General: appearance normal, both eyes and all related structures Resp: Effort & Inspection: normal respiratory effort GI: Other: Gravid no fundal tenderness no right upper quadrant pain : Other: SSE- vagina- large amount mucous slight blood tinged , cervix visually closed. uterus 16 week nontender Skin: General skin exam: no rashes or lesions noted Neuro: General: patient oriented x3 Cognition (Neuro): normal cognition Extrem: General: normal to inspection and no calf tenderness Psych: Mental Status: mental status grossly normal Results Labs 11/08/25 15:43 Labs: Short CBC 11/08/25 Range/Units 15:43 WBC 8.6 (4.5-10.0) K/mm3 Hgb 9.8 L (12.0-15.0) g/dL Hct 29.3 L (37.0-47.0) % Plt Count 387 H (150-375) k/mm3
[2025-11-08 16:32] LABS: Add Urine Microscopic? YES; Appearance Urine Clear (Clear); Glucose Urine UA Negative (Negative); Leukocyte Esterase Ur Negative LEU/UL (Negative); Nitrate Urine Negative (Negative); Non Pathogenic Casts 0-2; Specific Grav Ur 1.006 (1.001-1.035)
--- NOTE | 2025-11-08 16:40 | PC.NURSE ---
pt instructed to come back in and call Dr. Vu if she develops a fever or any fluid like symptoms, if any bleeding occurs as well. No heavy lifting or sex until seen back for her follow up. Pt to call on Thursday to get her appt scheduled for her ultrasound next week and set up an appt in the office with Dr. Vu.
== END 2025-11-08 16:47 | disposition home or self-care (01) ==
LOC: ANHOBOP 15:32 → ANHLDR 15:34
PROVIDERS: Visit Provider Obstetrics & Gynecology
DX: O42.90 Premature rupture of membranes, unspecified as to length of time between rupture and onset of labor, unspecified weeks of gestation (principal); O41.00X0 Oligohydramnios, unspecified trimester, not applicable or unspecified; Z3A.00 Weeks of gestation of pregnancy not specified
CPT/HCPCS: 36415; 81001; 85025; 87086; 99199